=== PATIENT | female | born 1945 | race Two or more races ===

== ENCOUNTER 2023-12-06 09:48 | Outpatient (OUT) | payer OTHER, SELFPAY ==
--- NOTE | 2023-12-06 10:01 | ECG_ITS ---
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
[2023-12-06 11:21] LABS: Basophils Absolute Auto 0.1 10^3/uL (0.0-0.1); Basophils Percent Auto 1.3 % (0.2-2.0); Eosinophils Absolute Auto 0.3 10^3/uL (0.0-0.7); Hematocrit 44.4 % (36.0-48.0); Hemoglobin 14.5 g/dL (12.0-16.0); Immature Granulocytes Abs Auto 0.03 10^3/uL (0.00-0.03); Immature Granulocytes Pct Auto 0.4 % (0.0-0.5); Lymphocytes Absolute Auto 1.2 10^3/uL (1.2-3.8); Lymphocytes Percent Auto 17.1 % (20.5-60.0); Mean Corpuscular HGB Conc 32.7 g/dL (29.9-35.2); Mean Corpuscular Hemoglobin 29.1 pg (26.7-34.0); Mean Platelet Volume 10.6 fL (9.5-13.5); Monocytes Absolute Auto 0.6 10^3/uL (0.3-0.8); Monocytes Percent Auto 9.1 % (1.7-12.0); Neutrophils Absolute Auto 4.8 10^3/uL (1.4-6.5); Neutrophils Percent Auto 68.1 % (43.0-75.0); Platelet Count 250 10^3/uL (150-450); Red Blood Count 4.99 10^6/uL (4.20-5.40); Red Cell Distribution Width 12.9 % (11.0-15.0); White Blood Count 7.1 10^3/uL (4.0-11.0)
[2023-12-06 11:41] LABS: Anion Gap 13.8; BUN Creatinine Ratio 21.4; Calcium 8.8 mg/dL (8.5-10.1); Carbon Dioxide 27.4 mmol/L (21.0-32.0); Chloride 105 mmol/L (98-107); Estimated GFR (African America >60 (>=60); Estimated GFR (Non-African Ame >60 (>=60); Glucose 96 mg/dL (74-106); Potassium 4.2 mmol/L (3.5-5.1); Sodium 142 mmol/L (136-145)
[2023-12-06 12:04] LABS: INR 1.01; Partial Thromboplastin Time 30.6 sec (22.3-36.2); Prothrombin Time 10.7 sec (9.0-11.6)
== END 2023-12-06 09:49 | disposition home or self-care (01) ==
LOC: PST 09:50
PROVIDERS: PCP Family Medicine Adult Medicine; Visit Provider Otolaryngology
DX: Z01.810 Encounter for preprocedural cardiovascular examination (principal); Z01.812 Encounter for preprocedural laboratory examination; K14.8 Other diseases of tongue
CPT/HCPCS: 80048; 85025; 85610; 85730; 93005

== ENCOUNTER 2023-12-17 10:58 | Day surgery (SDC) | payer OTHER, SELFPAY ==
[2023-12-06 11:16] VITALS: BP 142/76; PULSE 86; TEMP 36.3; O2SAT 94; BMI 26.5
[2023-12-17] VITALS (12 sets, daily range): BP systolic 136–162; BP diastolic 68–76; PULSE 75–101; TEMP 36.1–36.6; O2SAT 88–94; BMI 27.7
--- NOTE | 2023-12-17 | OP_ITS ---
OPERATION DATE: 12/17/2023 SURGEON: Digna Hernandez M.D. PREOPERATIVE DIAGNOSIS: Left central tongue lesion. POSTOPERATIVE DIAGNOSIS: Left central tongue lesion. PROCEDURE: Removal of left tongue lesion with layered closure. ANESTHESIA: General endotracheal. COMPLICATIONS: None. 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 PROCEDURE: Patient identified in the holding area and taken back to the OR where she was placed in the supine position. After induction of general endotracheal anesthesia, lidocaine 1% with 1:100,000 epinephrine was infiltrated around the lesion on the left ventral tongue, and after waiting adequate time for hemostasis, the area was prepped with Betadine and then, using a Cabell tip Bovie, an excision with a 1 cm margin around all of the sides of the lesion was mapped out. Then, using the Cabell tip Bovie, incisions were made through the mucosa and dissection carried out into the musculature of the tongue to get a very clear, deep margin. There was no bleeding. The wound was then copiously irrigated and re-prepped with Betadine, and the incision was closed with deep, interrupted 4-0 Vicryl sutures as well as interrupted 4-0 Vicryl vertical mattress sutures. Patient was then awakened and taken to the recovery room in good condition. MAURO
[2023-12-17] MEDS: LACTATED RINGER'S SOLUTION 1,000 ML 50 ML IV (11:26)
[2023-12-17] MEDS: LIDOCAINE HCL 1%-EPINEPHRINE 1:100,000 20 ML MDV INJ (12:13)
[2023-12-17] MEDS: ACETAMINOPHEN 300 MG/ 30 MG CODEINE TABLET 1 TAB PO (13:38)
== END 2023-12-17 14:23 | disposition home or self-care (01) ==
PROVIDERS: PCP Family Medicine Adult Medicine; Visit Provider Otolaryngology
PROC: (CPT 41112; principal; 2023-12-17 12:30)
DX: D00.07 Carcinoma in situ of tongue (principal); Z90.710 Acquired absence of both cervix and uterus; Z90.721 Acquired absence of ovaries, unilateral; Z87.891 Personal history of nicotine dependence; G47.33 Obstructive sleep apnea (adult) (pediatric); J44.9 Chronic obstructive pulmonary disease, unspecified; Z99.81 Dependence on supplemental oxygen; Z85.118 Personal history of other malignant neoplasm of bronchus and lung; R05.3 Chronic cough; E78.5 Hyperlipidemia, unspecified; I10 Essential (primary) hypertension; I35.0 Nonrheumatic aortic (valve) stenosis; I34.1 Nonrheumatic mitral (valve) prolapse; Z86.73 Personal history of transient ischemic attack (TIA), and cerebral infarction without residual deficits; K21.9 Gastro-esophageal reflux disease without esophagitis; E03.9 Hypothyroidism, unspecified; M19.90 Unspecified osteoarthritis, unspecified site; M85.80 Other specified disorders of bone density and structure, unspecified site
CPT/HCPCS: 41112; 36415; 88305; 88341; 88342; J2250; J2371; J2704; J3010

== ENCOUNTER 2024-10-01 08:55 | Outpatient (OUT) | payer MEDICARE, SELFPAY ==
--- NOTE | 2024-10-01 09:01 | XR_ITS ---
[address] [address] Patient Name: ZACHARY HOBBS MRN: [id number] date: 1945 Sex: F Assigned Patient Location: [facility] Current Patient Location: [facility] Accession/Order Number: [id number] Exam Date: 10/01/2024 12:42 Report Date: 10/01/2024 12:42 At the request of: KATHI CASTELLON MD Procedure: XR chest 2V Plain film chest 2 view HISTORY: Preoperative assessment. History COPD COMPARISON: None FINDINGS: SUPPORT DEVICES: None POSTSURGICAL CHANGES: None HEART: Within normal limits PULMONARY TIO: Within normal limits MEDIASTINUM: Unremarkable LUNGS AND PLEURA: No acute lung process, pleural effusion or pneumothorax identified. Hyperinflation. BONY STRUCTURES: Degenerative change ADDITIONAL FINDINGS None XR/XR chest 2V IMPRESSION: No acute process. Impression dictated by: Saad Conroy M.D.10/01/2024 12:42 PM Dictation Location: [facility] Electronically authenticated by: [id number] Y Date: 10/01/2024 12:42
--- NOTE | 2024-10-01 09:01 | ECG_ITS ---
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 Measurements Intervals [place] Rate: 77 P: 57 [place]: 150 QRS: -29 QRSD: 79 T: 36 QT: 368 QTc: 418 Interpretive Statements SINUS RHYTHM INFERIOR MYOCARDIAL INFARCTION [40+ ms Q WAVE AND/OR ST/T ABNORMALITY IN II/aVF], PROBABLY OLD Abnormal ECG Compared to ECG 12/06/2023 11:01:09 No significant changes Electronically Signed On 10-02-2024 19:15:53 EDT by LEVAR DAVIS M.D.
--- OUTSIDE RECORDS SUMMARY | 2024-10-01 09:01 | XMS_ITS | CCD ---
Author Organization [facility] Care Team Providers Care Biological Science Technician Name Role Phone Yan Puckett DO Primary Care Provider DO Anup Mckenna Attending Provider Yan Puckett DO Primary Care Provider Jeff De La Vega DO Primary Care Provider [phone] DO Jeff De La Vega II Primary Care Provider MD Kathi Castellon Jr Attending Provider Kathi Lee Jr Attending Unavailable Kathi Castellon Jr Admitting Unavailable Jeff De La Vega II Primary Care Unavailable Anup Mckenna Attending Unavailable Anup Mckenna Admitting Unavailable YAN PUCKETT Primary Care Unavailable RAVEN FRANCIS Attending Unavailable ANUP CALVILLO Referring Unavailable YAN PUCKETT Primary Care Unavailable SELF Referring Unavailable SAMANTHA ARMSTRONG Attending Unavailable YAN PUCKETT Primary Care Unavailable TAMI GUTIERREZ Referring Unavailable YAN PUCKETT Primary Care Unavailable Yan Puckett DO Primary Care Provider Irma Martell Attending Unavailable Mobebali Mohamad ARenard Referring Unavailable Momahsa Mohamad ARenard Admitting Unavailable [place], Bashar X Admitting Unavailable [place], Bashar X Attending Unavailable [place], Bashar X Referring Unavailable JORDON ROBBINS Attending Unav ailable DO Jeff De La Vega Attending Unavailable DO Jeff De La Vega Attending Unavailable BEATRIZ LANE Attending Unavailable [place], Bashar X Attending Unavailable [place], Bashar X Referring Unavailable NONE, XXXX Referring Unavailable Ac Brown Admitting Unavaila Ac Pra[place]. Attending Unavaila ble [place], Bashar X Admitting Unavailable [place], Bashar X Attending Unavailable [place], Bashar X Referring Unavailable [place], Bashar X Attending Unavailable [place], Bashar X Referring Unavailable [place], Bashar X Admitting Unavailable [place], DO Jeff J Attending Unavailable [place], DO Jeff J Admitting Unavailable NONE, XXXX Referring Unavailable [place], Bashar X Attending Unavailable Irma Martell. Attending Unavailable [place], DO Bautista J Attending Unavailable [place], DO Bautista J Attending Unavailable [place], DO Bautista J Attending Unavailable BEATRIZ LANE Attending Unavailable [place], DO Jeff Kirkpatrick Attending Unavailable GerardoeyJeff Referring Unavailable Tiburciomley, Jeff Kirkpatrick Attending Unavailable Tiburciomley, Jeff J Admitting Unavailable [place], Jeff Kirkpatrick Attending Unavailable [place], Jeff J Admitting Unavailable [place], Jeff Kirkpatrick Attending Unavailable [place], Jeff Kirkpatrick Attending Unavailable CromleyJeff Attending Unavailable NONE, XXXX Referring Unavailable [place], Bashar X Attending Unavailable [place], Bashar X Referring Unavailable [place], Bashar X Attending Unavailable [place]ley, DO Bautista J Referring Unavailable Cromley, DO Jeff Kirkpatrick Admitting Unavailable [place]ley, DO Jeff Kirkpatrick Attending Unavailable [place]ley, DO Jeff Kirkpatrick Attending Unavailable [place], DO Bautista J Admitting Unavailable Cromley, DO Bautista J Admitting Unavailable Cromley, DO Bautista J Attending Unavailable [place], DO Jeff Kirkpatrick Attending Unavailable Cromley, DO Jeff Kirkpatrick Admitting Unavailable Cromley, DO Jeff Kirkpatrick Attending Unavailable [place]ley, DO Jeff Kirkpatrick Attending Unavailable [place], DO Jeff Kirkpatrick Attending Unavailable [place], Jeff J Admitting Unavailable Magdalena Cruz Attending Unavailable KATHI CASTELLON Attending Unavailable RAMANA MILLER Attending Unavailable DOLRAMANA MAHONEY Attending Unavailable MILAD COATES Attending Unavailable RAMANA MILLER Attending Unavailable KATHI CASTELLON Attending Unavailable GERARDOEYJEFF Referring Unavailable COURTNEY TAPIA Attending Unavailable JEFF DE LA VEGA Referring Unavailable KATHI CASTELLON Attending Unavailable KATHI CASTELLON Attending Unavailable RAMANA MILLER Attending Unavailable KATHI CASTELLON Attending Unavailable TIMKATHI SALAZAR Attending Unavailable KATHI CASTELLON Attending Unavailable RAMNAA MILLER Attending Unavailable Allergies Allergy Classification Reported Allergen(s) Allergy Type Date of Onset Reaction(s) Facility (11 sources) Acetaminophen / Codeine Drug Allergy 4 Rash [facility] (11 sources) Octacosanol Propensity to adverse reactions 4 [facility] (4 sources) Codeine; Translations: [codeine] Drug Allergy [facility] Repository Medications Current Medications Medication Drug Class(es) Dates Sig (Normalized) Sig (Original) albuterol 0.83 mg/ml inhalation solution (20 sources) beta2-Adrenergic Agonist Start: 09-20-2023 albuterol (2.5 MG/3ML) 0.083% nebulizer solution Take 2.5 mg by nebulization every 6 (six) hours if needed 09/20/2023 Active Start: 10-19-2020 take 3 mL by inhalat ion every six hours as needed albuterol (PROVENTIL) 2.5 mg /3 mL (0.083 %) nebulizer solution Use 3 mL via nebulizer every 6 hours as needed. 10/19/2020 Active take 2 puff(s) by in halation every four hours for wheezing albuterol HFA 90 mcg/act inhaler Inhale 2 puffs every 4 (four) hours if needed for wheezing. Active ALBUTEROL SULFAT E (PROAIR HFA INHALATION) Inhale 2 Puffs as instructed as needed. Active ALBUTEROL SULFAT E (PROAIR HFA INHALATION) Inhale 2 Puffs as instructed as needed. 0 Active Comment on above: Inhale 2 Puffs as in structed as needed. Use 3 mL via nebuliz er every 6 hours as needed. aspirin 81 mg delayed release oral tablet (20 sources) Platelet Aggregation Inhibitor, Nonsteroidal Anti-inflammatory Drug take 1 tablet by mouth in the morning aspirin 81 MG EC tablet Take 81 mg by mouth in the morning. Active take 1 tablet by mouth once miriam y aspirin 325 mg tablet Take 325 mg by mouth once daily. 0 Active Comment on above: Take 325 mg by mouth once daily. Take 81 mg by mouth once daily. 24 hr buPROPion hydrochloride 150 mg extended release oral tablet (4 sources) Aminoketone Start : 07-07 take 1 tablet by mouth once daily buPROPion XL (Wellbutrin XL) 150 MG 24 hr tablet Take 150 mg by mouth Daily 07/07/2024 Active calcium carbonate 1500 mg oral tablet (11 sources) calcium carbonat e 1500 (600 Ca) MG tablet 1 tablet Daily Active calcium citrate 1500 mg / cholecalciferol 250 unt oral tablet (8 sources) Vitamin D Start : 08-11 take 1 tablet by mouth once daily Calcium Citrate-Vitamin D3 (CITRACAL+D) 315 mg- 250 unit tab Take 1 tablet by mouth once daily. 08/11/2018 Active Comment on above: Take 1 tablet by deep th once daily. Carboxymethylcellulose (8 sources) CARBOXYMETHYLCEL LULOSE SODIUM (REFRESH OPHTHALMIC) Use in eyes. Active CARBOXYMETHYLCEL LULOSE SODIUM (REFRESH OPHTHALMIC) Use in eyes. 0 Active Comment on above: Use in eyes. cholecalciferol, vitamin D3, (VITAMIN D3 ORAL) (7 sources) take 50 ug by mouth once daily cholecalciferol, vitamin D3, (VITAMIN D3 ORAL) Take 50 mcg by mouth once daily. Active take 50 ug by mouth once daily c holecalciferol, vitamin D3, (VITAMIN D3 ORAL) Take 50 mcg by mouth once daily. 0 Active Comment on above: Take 50 mcg by mouth once daily. cyclobenzaprine hydrochloride 10 mg oral tablet (17 sources) Muscle Relaxant Start: 12-03-19 21 take 1 tablet by mouth every eight hours as needed cyclobenzaprine (FLEXERIL) 10 mg tablet Take 1 tablet by mouth three times daily as needed. 60 tablet 2 12/02/2020 Active End: 05-18-2024 take 5 mg by mouth three times daily as needed for muscle spasms cyclobenzaprine (Flexeril) 10 MG tablet Take 5 mg by mouth 3 (three) times a day as needed for muscle spasms. 05/18/2024 Discontinued (Therapy completed) Comment on above: Take 1 tablet by deep three times daily as needed. cycloSPORINE 0.5 mg/ml ophthalmic suspension (17 sources) Calcineurin Inhibitor Immunosuppressant End: 05-18-20 24 take 1 drop(s) into the eye(s) every twelve hours cycloSPORINE (Restasis) 0.05 % ophthalmic emulsion Administer 1 drop into both eyes every 12 (twelve) hours 05/18/2024 Discontinued (Therapy completed) CYCLOSPORINE (RE STASIS OPHTHALMIC) Use in eyes. Active take 1 drop(s) into the eye(s) in the morning cycloSPORINE (Restasis MultiDose) 0.05 % ophthalmic emulsion 1 drop in the morning and 1 drop before bedtime. 0 Active CYCLOSPORINE (RE STASIS OPHTHALMIC) Use in eyes. 0 Active Comment on above: Use in eyes. fluticasone propionate 0.05 mg/actuat metered dose nasal spray (8 sources) Corticosteroid Start: 10-14-19 take 1 spray(s) nasal route once daily fluticasone (FLONASE) 50 mcg/actuation nasal spray Use 1 [place] in each nostril once daily. 10/13/2020 Active Comment on above: Use 1 [place] in each nostril once daily. gabapentin 100 mg oral capsule (18 sources) Anti-epileptic Agent Start: 05-27-20 End: 08-25-19 24 take 1 capsule by mouth in the morning, then take 1 capsule by mouth in the evening, then take 1 capsule by mouth at bedtime gabapentin (Neurontin) 100 MG capsule Take 100 mg by mouth in the morning and 100 mg in the evening and 100 mg before bedtime. 05/27/2023 Active Start: 12-20-2021 End: 05-27-2023 take 1 capsule by mouth three times daily gabapentin (NEURONTIN) 100 mg capsule Take 1 capsule by mouth three times daily for 180 days. 90 capsule 5 12/20/2021 05/27/2023 Discontinued Comment on above: Take 1 capsule by [facility] three times daily for 180 days. Take 1 capsule by [facility] two times a day for 90 days. levothyroxine sodium 0.05 mg oral tablet (15 sources) l-Thyroxine levothyroxine (Synthroid, Levoxyl) 50 MCG tablet Take by mouth Daily before meals. Active Comment on above: Take 50 mcg by mouth once daily. melatonin 10 mg oral tablet (19 sources) take 1 tablet by mouth every twenty-four hours as needed melatonin 10 MG tablet Take 10 mg by mouth Daily as needed Active take 1 tablet by deep every twenty-four hours as needed Melatonin 5 mg tab Take 5 mg by mouth at bedtime as needed. 0 Active Comment on above: Take 5 mg by mouth a t bedtime as needed. Take 10 mg by mouth at bedtime as needed. meloxicam 15 mg oral tablet (14 sources) Nonsteroidal Anti-inflammatory Drug meloxicam (Mobic) 15 MG tablet Take by mouth. Active montelukast 10 mg oral tablet (15 sources) Leukotriene Receptor Antagonist Start: 12-28-19 23 take 1 tablet by mouth once daily at bedtime montelukast (SINGULAIR) 10 mg tablet Take 10 mg by mouth daily at bedtime. 12/27/2022 Active Comment on above: Take 10 mg by mouth daily at bedtime. Multiple Vitamin (multivitamin) capsule (11 sources) take 1 capsule by mouth once daily Multiple Vitamin (multivitamin) capsule Take 1 capsule by mouth Daily Active MULTIVITAMIN ORAL (7 sources) MULTIVITAMIN ORA L Take by mouth once daily. Active MULTIVITAMIN ORA L Take by mouth once daily. 0 Active Comment on above: Take by mouth once d aily. omeprazole 20 mg delayed release oral tablet (14 sources) Proton Pump Inhibitor take 1 tablet by mouth before mealtime omeprazole OTC (PriLOSEC OTC) 20 MG EC tablet Take 20 mg by mouth in the morning. Take before meals. Do not crush, chew, or split. . Active omeprazole 20 mg / sodium bicarbonate 1100 mg oral capsule (8 sources) Proton Pump Inhibitor Start: 9 take 1 capsule by mouth in the morning Omeprazole-Sodium Bicarbonate 20-1.1 mg-gram cap Take 1 capsule by mouth. In the morning 08/11/2018 Active Comment on above: Take 1 capsule by mo [facility]. In the morning pravastatin sodium 80 mg oral tablet (20 sources) HMG-CoA Reductase Inhibitor take 1 tablet by mouth in the morning pravastatin (Pravachol) 80 MG tablet Take 80 mg by mouth in the morning. Active Comment on above: Take 80 mg by mouth once daily. verapamil hydrochloride 40 mg oral tablet (18 sources) Calcium Channel Jacqui take 1 tablet by mouth in the morning verapamil (Calan) 40 MG tablet Take 40 mg by mouth in the morning and 40 mg before bedtime. Active take 1 tablet by deep th once daily at bedtime verapamil SR (CALAN SR, ISOPTIN SR) 120 mg CR tablet Take 120 mg by mouth daily at bedtime. Active Comment on above: Take 120 mg by mouth daily at bedtime. Zinc (18 sources) take 1 tablet by mouth once daily Zinc 50 mg tab Take 50 mg by mouth once daily. [facility] tablet Take 50 mg by mouth in the morning. Active take 1 tablet by mouth once miriam y Zinc 50 mg tab Take 50 mg by mouth once daily. 0 Active Comment on above: Take 50 mg by mouth once daily. Completed/Discontinued Medications Medication Drug Class(es) Dates Sig (Normalized) Sig (Original) alendronic acid 70 mg oral tablet (11 sources) Bisphosphonate End: 05-27-2023 take 1 tablet by mouth every week alendronate (FOSAMAX) 70 mg tablet Take 70 mg by mouth once each week. 05/27/2023 Discontinued take 1 tablet by mouth in the mo rning alendronate (Fosamax) 70 MG tablet Take 70 mg by mouth every 7 (seven) days. Take in the morning with a full glass of water, on an empty stomach, and do not take anything else by mouth or lie down for the next 30 min. 0 Active Comment on above: Take 70 mg by mouth once each week. atenolol 50 mg oral tablet (11 sources) beta-Adrenergic Jacqui End: 3 take 1 tablet by mouth once daily atenolol (TENORMIN) 50 mg tablet Take 50 mg by mouth once daily. 05/27/2023 Discontinued Comment on above: Take 50 mg by mouth once daily. budesonide 0.25 mg/ml inhalation suspension (8 sources) Corticosteroid Start: 9 End: 3 budesonide (PULMICORT) 0.5 mg/2 mL nebulizer solution USE 1 VIAL IN NEBULIZER TWICE DAILY 11 05/02/2019 05/27/2023 Discontinued Comment on above: USE 1 VIAL IN NEBULI ZER TWICE DAILY doxazosin 1 mg oral tablet (8 sources) alpha-Adrenergic Jacqui Start: 3 take 0.5 tablet by mouth twice daily doxazosin (CARDURA) 1 mg tablet Take 0.5 tablets by mouth two times a day. 0 05/27/2023 Active End: 05-27-2023 take 1 tablet by mouth once daily at bedtime doxazosin (CARDURA) 1 mg tablet Take 1 mg by mouth daily at bedtime. 05/27/2023 Discontinued Comment on above: Take 1 mg by mouth d aily at bedtime. Take 0.5 tablets by mouth two times a day. 30 actuat fluticasone furoate 0.1 mg/actuat / umeclidinium 0.0625 mg/actuat / vilanterol 0.025 mg/actuat dry powder inhaler (12 sources) Anticholinergic, Corticosteroid, beta2-Adrenergic Agonist Start: 3 take 1 puff(s) by inhalation once daily TRELEGY ELLIPTA 100-62.5-25 mcg inhalation powder Inhale 1 Puff as instructed once daily. 0 05/07/2023 Active Trelegy Ellipta 100-62.5-25 MCG/ACT aerosol powder Take 62.5 Inhalations by mouth Daily Active Comment on above: Inhale 1 Puff as ins tructed once daily. fluticasone-sod chl-sod bicarb 50 mcg- 0.9 % ksps (8 sources) End: 05-27-2023 fluticasone-sod chl-sod bicarb 50 mcg- 0.9 % ksps Use in the nose. 05/27/2023 Discontinued End: 05-27-2023 fluticasone-sod chl-sod bica rb 50 mcg- 0.9 % ksps Use in the nose. 0 05/27/2023 Discontinued fluticasone-sod chl-sod bicarb 50 mcg- 0.9 % ksps Use in the nose. 0 Active Comment on above: Use in the nose. LORazepam 0.5 mg oral tablet (12 sources) Benzodiazepine Start: 3 take 0.5 mg by mouth once daily at bedtime LORazepam (ATIVAN) 0.5 mg Take 0.5 mg by mouth daily at bedtime. 0 05/20/2023 Active Comment on above: Take 0.5 mg by mouth daily at bedtime. lysine 1000 mg oral tablet (8 sources) End: 3 take 1 tablet by mouth once daily Lysine 1,000 mg tab Take 1 tablet by mouth once daily. 05/27/2023 Discontinued Comment on above: Take 1 tablet by deep th once daily. Magnesium (8 sources) End: 3 take 1 tablet by mouth once daily Magnesium 250 mg tab Take 250 mg by mouth once daily. 05/27/2023 Discontinued End: 05-27-2023 take 1 tablet by mouth once daily Magnesium 250 mg tab Take 250 mg by mouth once daily. 0 05/27/2023 Discontinued take 1 tablet by deep th once daily Magnesium 250 mg tab Take 250 mg by mouth once daily. 0 Active Comment on above: Take 250 mg by mouth once daily. magnesium oxide 400 mg oral tablet (1 source) Start: 3 take 1 tablet by mouth once daily magnesium oxide 400 mg magnesium tab Take 1 tablet by mouth once daily. 0 04/27/2023 Active Comment on above: Take 1 tablet by deep once daily. 24 hr mirabegron 25 mg extended release oral tablet (8 sources) beta3-Adrenergic Agonist Start: 1 End: 3 take 25 mg by mouth once daily MYRBETRIQ 25 mg Tb24 Take 25 mg by mouth once daily. 10/13/2020 05/27/2023 Discontinued Comment on above: Take 25 mg by mouth once daily. 10 actuat olodaterol 0.0025 mg/actuat / tiotropium 0.0025 mg/actuat inhalation spray (8 sources) Anticholinergic, beta2-Adrenergic Agonist Start: 0 End: 3 STIOLTO RESPIMAT 2.5-2.5 mcg/actuation Inhale 2 Puffs as instructed once daily. 05/04/2020 05/27/2023 Discontinued Comment on above: Inhale 2 Puffs as in structed once daily. Simethicone (8 sources) End: 3 take 1 capsule by mouth four times daily as needed simethicone (GAS-X ORAL) Take 1 capsule by mouth four times daily as needed. 05/27/2023 Discontinued End: 05-27-2023 take 1 capsule by mouth four times daily as needed simethicone (GAS-X ORAL) Take 1 capsule by mouth four times daily as needed. 0 05/27/2023 Discontinued take 1 capsule by mo ut four times daily as needed simethicone (GAS-X ORAL) Take 1 capsule by mouth four times daily as needed. 0 Active Comment on above: Take 1 capsule by mo uth four times daily as needed. 30 actuat umeclidinium 0.0625 mg/actuat / vilanterol 0.025 mg/actuat dry powder inhaler (8 sources) Anticholinergic, beta2-Adrenergic Agonist Start: 08-11-2018 End: 05-27-2023 umeclidinium-vilanterol (ANORO ELLIPTA) 62.5-25 mcg/actuation inhaler 08/11/2018 05/27/2023 Discontinued Problems Active Problems Problem Classification Problem Date Documented Date Episodic/Chronic Aortic; peripheral; and visceral artery aneurysms (5 sources) Aneurysm of left carotid artery; Translations: [Aneurysm of carotid artery] Onset: 01-02-2023 Chronic Asthma (11 sources) Asthma; Translations: [Unspecified asthma, uncomplicated] Onset: 11-25-2023 11-25-2023 Chronic Cancer of bronchus; lung (20 sources) 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; Translations: [Malignant neoplasm of upper lobe, left bronchus or lung] Onset: 11-19-2016 11-19-2016 Chronic Chronic obstructive pulmonary disease and bronchiectasis (20 sources) Centriacinar emphysema; Translations: [Centrilobular emphysema] Onset: 11-25-2023 11-25-2023 Chronic Disorders of lipid metabolism (11 sources) Hyperlipidemia; Translations: [Hyperlipidemia, unspecified] Onset: 11-25-2023 11-25-2023 Chronic Esophageal disorders (11 sources) Gastroesophageal reflux disease; Translations: [Gastro-esophageal reflux disease without esophagitis] Onset: 11-25-2023 11-25-2023 Chronic Essential hypertension (11 sources) Hypertensive disorder; Translations: [Essential (primary) hypertension] Onset: 11-25-2023 11-25-2023 Chronic Genitourinary symptoms and ill-defined conditions (11 sources) Genuine stress incontinence; Translations: [Stress incontinence (female) (male)] Onset: 11-25-2023 11-25-2023 Chronic Heart valve disorders (11 sources) Aortic valve sclerosis; Translations: [Other nonrheumatic aortic valve disorders] Onset: 11-25-2023 11-25-2023 Chronic Mycoses (1 source) Onychomycosis; Translations: [Tinea unguium] 07-27-2024 Episodic Osteoarthritis (11 sources) Arthritis of knee; Translations: [Unilateral primary osteoarthritis, unspecified knee] Onset: 11-25-2023 11-25-2023 Chronic Other and ill-defined cerebrovascular disease (19 sources) Intracranial aneurysm; Translations: [Cerebral aneurysm, nonruptured] Onset: 11-07-2018 11-07-2018 Chronic Other connective tissue disease (1 source) Pain of toe of right foot; Translations: [Pain in right toe(s)] 07-27-2024 Episodic Other connective tissue disease (1 source) Pain of toe of left foot; Translations: [Pain in left toe(s)] 07-27-2024 Episodic Other ear and sense organ disorders (11 sources) Otitis externa; Translations: [Unspecified otitis externa, unspecified ear] Onset: 11-25-2023 11-25-2023 Chronic Other nervous system disorders (11 sources) Peripheral nerve disease ; Translations: [Unspecified mononeuropathy of unspecified upper limb] Onset: 11-25-2023 11-25-2023 Chronic Other skin disorders (2 sources) Seborrheic keratosis; Translations: [Other seborrheic keratosis] 08-08-2023 Episodic Residual codes; unclassified (11 sources) Hypoxia; Translations: [Idiopathic sleep related nonobstructive alveolar hypoventilation] Onset: 11-25-2023 11-25-2023 Chronic Spondylosis; intervertebral disc disorders; other back problems (11 sources) Cervical arthritis; Translations: [Spondylosis without myelopathy or radiculopathy, cervical region] Onset: 11-25-2023 11-25-2023 Chronic Transient cerebral ischemia (11 sources) Transient cerebral ischemia; Translations: [Transient cerebral ischemic attack, unspecified] Onset: 11-25-2023 11-25-2023 Chronic Unclassified (1 source) Pain in left hand; Translations: [Pain in left hand] Onset: 04-30-2023 Past or Other Problems Problem Classification Problem Date Documented Da te Episodic/Chronic Allergic reactions (11 sources) Allergy to pollen; Translations: [Other allergy status, other than to drugs and biological substances] Onset: 11-25-2023 11-25-2023 Episodic Cardiac dysrhythmias (20 sources) Bradycardia; Translations: [Bradycardia, unspecified] Onset: 11-25-2023 11-25-2023 Episodic Diseases of mouth; excluding dental (20 sources) Sialoadenitis; Translations: [Sialoadenitis, unspecified] Onset: 11-25-2023 11-25-2023 Episodic Genitourinary symptoms and ill-defined conditions (20 sources) Incomplete emptying of bladder; Translations: [Retention of urine, unspecified] Onset: 11-25-2023 11-25-2023 Episodic Malaise and fatigue (11 sources) Fatigue; Translations: [Other fatigue] Onset: 11-25-2023 11-25-2023 Episodic Other bone disease and musculoskeletal deformities (11 sources) Osteopenia; Translations: [Other specified disorders of bone density and structure, unspecified site] Onset: 11-25-2023 11-25-2023 Episodic Other bone disease and musculoskeletal deformities (11 sources) Cervical somatic dysfunction; Translations: [Segmental and somatic dysfunction of cervical region] Onset: 11-25-2023 11-25-2023 Episodic Other bone disease and musculoskeletal deformities (11 sources) Somatic dysfunction of head region; Translations: [Segmental and somatic dysfunction of head region] Onset: 11-25-2023 11-25-2023 Episodic Other bone disease and musculoskeletal deformities (11 sources) Somatic dysfunction of lower limb; Translations: [Segmental and somatic dysfunction of lower extremity] Onset: 11-25-2023 11-25-2023 Episodic Other bone disease and musculoskeletal deformities (11 sources) Somatic dysfunction of sacral spine; Translations: [Segmental and somatic dysfunction of sacral region] Onset: 11-25-2023 11-25-2023 Episodic Other bone disease and musculoskeletal deformities (11 sources) Somatic dysfunction of thoracic region; Translations: [Segmental and somatic dysfunction of thoracic region] Onset: 11-25-2023 11-25-2023 Episodic Other bone disease and musculoskeletal deformities (11 sources) Somatic dysfunction of upper limb; Translations: [Segmental and somatic dysfunction of upper extremity] Onset: 11-25-2023 11-25-2023 Episodic Other connective tissue disease (11 sources) Poor posture; Translations: [Abnormal posture] Onset: 11-25-2023 11-25-2023 Episodic Other connective tissue disease (11 sources) Muscle spasm of cervical muscle of neck; Translations: [Other muscle spasm] Onset: 11-25-2023 11-25-2023 Episodic Other diseases of bladder and urethra (11 sources) Urethral stricture; Translations: [Unspecified urethral stricture, male, unspecified site] Onset: 11-25-2023 11-25-2023 Episodic Other ear and sense organ disorders (11 sources) Pain of ear structure; Translations: [Otalgia, unspecified ear] Onset: 11-25-2023 11-25-2023 Episodic Other lower respiratory disease (11 sources) Cough; Translations: [Cough] Onset: 11-25-2023 11-25-2023 Episodic Other lower respiratory disease (11 sources) Rib pain; Translations: [Pleurodynia] Onset: 11-25-2023 11-25-2023 Episodic Other non-traumatic joint disorders (11 sources) Pain in unspecified knee; Translations: [Pain in joint, lower leg] Onset: 11-25-2023 11-25-2023 Episodic Other screening for suspected conditions (not mental disorders or infectious disease) (11 sources) Raised TSH level; Translations: [Other specified abnormal findings of blood chemistry] Onset: 11-25-2023 11-25-2023 Episodic Otitis media and related conditions (11 sources) Dysfunction of eustachian tube; Translations: [Unspecified Eustachian tube disorder, unspecified ear] Onset: 11-25-2023 11-25-2023 Episodic Residual codes; unclassified (11 sources) Insomnia; Translations: [Insomnia, unspecified] Onset: 11-25-2023 11-25-2023 Episodic Screening and history of mental health and substance abuse codes (11 sources) Ex-smoker; Translations: [Personal history of nicotine dependence] Onset: 11-25-2023 11-25-2023 Episodic Spondylosis; intervertebral disc disorders; other back problems (20 sources) Chronic low back pain; Translations: [Lumbago with sciatica, left side] Onset: 11-25-2023 11-25-2023 Episodic Sprains and strains (11 sources) Complete tear of ligament of finger; Translations: [Unspecified sprain of unspecified finger, initial encounter] Onset: 11-25-2023 11-25-2023 Episodic Thyroid disorders (11 sources) Disorder of thyroid gland; Translations: [Disorder of thyroid, unspecified] Onset: 11-25-2023 11-25-2023 Episodic Viral infection (11 sources) Disease caused by 2019-nCoV; Translations: [COVID-19] Onset: 11-25-2023 11-25-2023 Episodic Results Test Name Value Interpretation Reference Range Facil ity Ambulatory Visit Summaryon 0 09-08-2024 Ambulatory Visit Summary Ambulatory Visit Summary ZACHARY HOBBS :1945 Visit Date:09/08/2024 Ambulatory Visit Instructions Your Diagnosis Acute bacterial conjunctivitis of both eyes Viral URI with cough Your Care Team Attending Physician - Karoline Ortiz Primary Care Physician - Jeff De La Vega DO This Is Your Medications List brompheniramine/dext romethorphan/PSE (Bromfed DM oral syrup) polymyxin B-trimethoprim ophthalmic (polymyxin B-trimethoprim Opth Bing) Contact prescribing physician if questions or concerns Non-Formulary Medication (Drerick probiotic and probiotic gummies) Oxygen (Oxygen - for Home) albuterol (Albuterol (Eqv-ProAir HFA) 90 mcg/inh inhalation aerosol) albuterol (albuterol 0.083% Inh Bing 3 mL) aspirin buPROPion (buPROPion 300 mg/24 hours ER Tab) calcium-vitamin D (Calcium 600+D) fluticasone/umeclidi nium/vilanterol (Trelegy Ellipta 100 mcg-62.5 mcg-25 mcg inhalation powder) gabapentin (gabapentin 100 mg Cap) levothyroxine (levothyroxine 50 mcg (0.05 mg) Tab) lorazepam (LORazepam 0.5 mg Tab) melatonin (melatonin 10 mg oral tablet) montelukast (montelukast 10 mg Tab) multivitamin with minerals (Multivitamin, Therapeutic w/ Minerals) ocular lubricant (Refresh Optive) omeprazole (omeprazole 20 mg Cap-DR) pravastatin (pravastatin 80 mg Tab) verapamil (verapamil 40 mg oral tablet) zinc sulfate (Zinc) Procedures Performed Colonoscopy (03/27/2024), Tongue (12/17/2023), Cystourethroscopy with dilation of urethral stricture (12/20/2019), Colonoscopy (08/26/2015), Cataract, Colonoscopy, gamma knife radiation to L lung, hysterectomy, Lung biopsy sample, Oophorectomy, Tonsillectomy and adenoidectomy. Discharge Vitals Temperature (Temporal Artery) 36.7 ???C Heart Rate (Peripheral) 93 Blood Pressure 116/72 Height 157 cm Height 62 in Weight 63 kg Weight 138.891 lb BMI 25.56 What to do next Scheduled Follow-Up Appointments 2024 2:00 PM EDT With: Jeff De La Vega DO Where: [facility] [address] [place] [address]- 2024 2:30 PM EST With: Where: [facility] [address] [place] [address]- You Need to Schedule the Following Appointments Follow Up with Jeff De La Vega DO, FAM, PED When: Where: [address] [place] [address] Medications What How Much When Why Instructions New brompheniramine/ dextromethorphan/ PSE (Bromfed DM oral syrup) 10 Milliliter By Mouth 4 times a day as needed for Cough and Congestion Acute bacterial conjunctivitis of both eyes Viral URI with cough Duration: 5 Days Pickup at [facility] New polymyxin B-trimethoprim ophthalmic (polymyxin B-trimethoprim Opth Bing) 1 Drops Ophthalmic Every 3 hours Acute bacterial conjunctivitis of both eyes Viral URI with cough Duration: 7 Days not to exceed 6 doses/ day use in BOTH eyes Pickup at [facility] 1985 Unchanged albuterol (Albuterol (Eqv-ProAir HFA) 90 mcg/ inh inhalation aerosol) 2 Puffs Inhalation Every 6 hours COPD mixed type Contact prescribing physician if questions or concerns Unchanged albuterol (albuterol 0.083% Inh Bing 3 mL) 3 Milliliter Inhalation Every 6 hours as needed for as needed for wheezing Q6H and PRN Contact prescribing physician if questions or concerns Unchanged aspirin 81 Milligram By Mouth Every day Contact prescribing physician if questions or concerns Unchanged buPROPion (buPROPion 300 mg/ 24 hours ER Tab) 1 Tablets By Mouth Every 24 hours Mild recurrent major depression Contact prescribing physician if questions or concerns Unchanged calcium-vitamin D (Calcium 600+D) 1 tab By Mouth Every day Contact prescribing physician if questions or concerns Unchanged fluticasone/ umeclidinium/ vilanterol (Trelegy Ellipta 100 mcg-62.5 mcg-25 mcg inhalation powder) 1 Puffs Inhalation Every day Contact prescribing physician if questions or concerns Unchanged gabapentin (gabapentin 100 mg Cap) 1 Capsules By Mouth 3 times a day Contact prescribing physician if questions or concerns Unchanged levothyroxine (levothyroxine 50 mcg (0.05 mg) Tab) 1 Tablets By Mouth Every day Hypothyroidism Contact prescribing physician if questions or concerns Unchanged lorazepam (LORazepam 0.5 mg Tab) 1 Tablets By Mouth Once a day (at bedtime) Insomnia 90 day rx Contact prescribing physician if questions or concerns Unchanged melatonin (melatonin 10 mg oral tablet) By Mouth Once a day (at bedtime) Contact prescribing physician if questions or concerns Unchanged montelukast (montelukast 10 mg Tab) 1 Tablets By Mouth Every day Asthma Contact prescribing physician if questions or concerns Unchanged multivitamin with minerals (Multivitamin, Therapeutic w/ Minerals) 1 Tablets By Mouth Every day Contact prescribing physician if questions or concerns Unchanged Non-Formulary Medication (Derrick probiotic and probiotic g (more content not included)... Normal [facility] Family Medicine Office/Clini c Noteon 09-08-2024 Family Medicine Office/Clinic Note Family Medicine Office/Clinic Note Chief Complaint chronic cough and Lt eye oozing HPI Staff 79 yo female presents with cough since 2023. congestion, shortness of breath. hx emphysema. pt also c/o Lt eye crusts shut. states when removing the crusts it oozes clear liquid, skin around eye sanches when clear liquid oozes. states eye has been itching as well. redness noted to skin around eye. states started about 3-4 days ago, and worsens in the mornings and at night. otc muscinex dm, refresh eye drops History of Present Illness I have reviewed and verified the staff HPI to be accurate for this encounter. Portions of this record have been created with voice recognition software. Occasional wrong-word or ???[id number]??? substitutions may have occurred due to the inherent limitations of voice recognition software. 9-year-old female with complaints of cough and congestion off and on since June however this is improving. Patient reports history of emphysema but no longer smoking. She denies coughing up any sputum. She denies any fever or chills currently although when she first had her symptoms she did have a low-grade temperature. She is also complaining of redness, itchiness and drainage from her eyes bilaterally worse on the left. Patient states that the crusting of her eyes started about 3 to 4 days ago and is worse in the mornings and at night. She has been using a moistened cotton ball to clean the drainage from her eyes. Does report her left eye being crusted shut this morning. She denies any ear pain but does report nasal congestion and did have a scratchy throat this morning that improved with Tylenol. She does not have any chest pain, wheezing or shortness of breath. He denies any nausea vomiting or diarrhea. States she took a COVID test back when she for started having symptoms where she had a low-grade fever and that was negative. Denies history of hypertension. Review of Systems PHQ Score Initial Depression Screen Score: 0 SCORE ROS negative unless otherwise stated in HPI. Physical Exam Vitals & Measurements T: 36.7 ???C(Temporal Artery) HR: 93(Peripheral) BP: 116/72 SpO2: 94% HT: 62 in HT: 157 cm WT: 63 kg WT: 138.891 lb BMI: 25.56 General: Well developed, well nourished, in no acute distress mildly ill-appearing Eyes: Pupils equal, round, and reactive to light. mild Conjunctivae and scleral injection bilaterally more noted on left eye, extraocular movements intact vision normal, scant yellowish crusting in eyelashes on left side Ears: No deformity or lesion of external ear. Canal mildly erythematous bilaterally with clear fluid behind TMs bilaterally. TM???s intact, not inflamed, no bulging or drainage. Hearing grossly normal to conversational speech Nose: mild nasal mucosa inflammation and edema Mouth: Mucous membranes moist. Normal oropharynx, erythematous posterior pharynx without lesions or exudates. Tongue normal uvula midline, no drooling Neck: no adenopathy Lungs: clear to auscultation throughout, no wheezing, no rales. No respiratory distress occasional moist cough RR 16 Cardio: regular rate and rhythm, no murmur Abdomen: Soft, non-distended, non-tender Musculoskeletal: not assessed Extremity: not assessed Neurologic: not assessed Skin: No rashes, ulcerations, or suspicious lesions Mental Status: Alert and oriented x3. Normal mood and affect Assessment/Plan Due to crusting and manipulation of eyelids with a Q-tip for cleansing we will go ahead and treat her with Polytrim ophthalmic eyedrops bilaterally for her eyes. For nasal congestion and cough we will have her use Bromfed-DM. Likely viral illness causing her symptoms. Cough is much improved per her report. Denies wheezing or shortness of breath. Up with primary care if symptoms are not improving over the next 5 to 7 days. Warm compresses to help remove drainage cool compresses for itching. Discussed contagious nature of conjunctivitis. 1. Acute bacterial conjunctivitis of both eyes (H10.33: Unspecified acute conjunctivitis, bilateral) Exam consistent with bacterial conjunctivitis. Will treat with polymyxin B/Trimethoprim 1 drop every 3 hrs while awake x 7 days. Finish course. Discussed contagious nature, avoid touching eyes. Do not replace contact lens until completely resolved, discard current pair to avoid recontamination. May use warm washcloth to remove drainage or crusting. Advised less contagious after 24 hours of antibiotic drops. Follow up with PCP or eye doctor if not improving over next 3 days. Patient/parent verbalized understanding of treatment plan. Ordered: brompheniramine/dext romethorphan/PSE, 10 mL, Oral, QID Cough and Congestion for 5 day(s), 200 mL, Refill(s) 0, [facility], 157, cm, 09/08/24 13:05:00 EST, Height/Length Dosing, 63, kg, 09/08/24 13:05:00 EST, Weight Dosing polymyxin B-trimethoprim ophthalmic, 1 drop(s), OPTH, q3hr for 7 day(s), 10 mL, Refill(s) 0, not to exceed 6 doses/day use in BOTH eyes, (more content not included)... Normal [facility] Comment on above: Result Comment: Elec tronically Signed By: Karoline Ortiz\.br\Date and Time Signed: 09/08/24 13:50 EST Ionized Calciumon 09-04-2024 Calcium.ionized ISE [Mass/Vol] 5.0 mg/dL Invalid Interpretation Code 4.5-5.6 [facility] Comment on above: Result Comment: [facility]f [facility]med at: [facility] [address] [place], [place] [id number] PhD Gokul Koch Performed By: #### 2 [id number] #### [facility] [address] [place] [id number] PTH [place] 09-04-2024 Parathyrin.intact [Mass/Vol] 18 pg/mL Invalid Interpretation Code 15 [facility] Comment on above: Result Comment: Perf ormed at: [facility] [address] [id number] PhD Gokul Koch Performed By: #### 1 [id number] #### [facility] [address] [place] [address] Phosphoruson 09-03-2024 Phosphate [Mass/Vol] 2.9 mg/dL Normal 1.9-4.6 [facility] Comment on above: Performed By: #### 2 [id number] #### [facility] [address] [place] [address] Vitamin D 25 Hydroxyon 09-03 25-hydroxyvitamin D3 [Mass/Vol] 26.1 ng/mL Low 30.0-100.0 [facility] Comment on above: Performed By: #### 5 [id number] #### [facility] [address] [place] [address] Ambulatory Visit Summaryon 0 09-01-2024 Ambulatory Visit Summary Ambulatory Visit Summary ZACHARY HOBBS :1945 Visit Date:09/01/2024 Ambulatory Visit Instructions Your Diagnosis Osteoporosis Prediabetes Essential hypertension Moderate COPD (chronic obstructive pulmonary disease) Moderate asthma, Asthma Vaccine counseling Insomnia Chronic low back pain with left-sided sciatica Spasm of lumbar paraspinous muscle Hip flexor tightness Abdominal weakness Somatic dysfunction of lower extremities Somatic dysfunction of sacral spine Somatic dysfunction of lumbar region Somatic dysfunction of thoracic region Adult BMI 26.0-26.9 kg/sq m Mild recurrent major depression Other chronic pain Your Care Team Attending Physician - Jeff De La Vega DO Primary Care Physician - Jeff De La Vega DO This Is Your Medications List buPROPion (buPROPion 300 mg/24 hours ER Tab) lorazepam (LORazepam 0.5 mg Tab) montelukast (montelukast 10 mg Tab) pravastatin (pravastatin 80 mg Tab) verapamil (verapamil 40 mg oral tablet) Contact prescribing physician if questions or concerns Non-Formulary Medication (Derrick probiotic and probiotic gummies) Oxygen (Oxygen - for Home) albuterol (Albuterol (Eqv-ProAir HFA) 90 mcg/inh inhalation aerosol) albuterol (albuterol 0.083% Inh Bing 3 mL) aspirin calcium-vitamin D (Calcium 600+D) fluticasone/umeclidi nium/vilanterol (Trelegy Ellipta 100 mcg-62.5 mcg-25 mcg inhalation powder) gabapentin (gabapentin 100 mg Cap) levothyroxine (levothyroxine 50 mcg (0.05 mg) Tab) melatonin (melatonin 10 mg oral tablet) multivitamin with minerals (Multivitamin, Therapeutic w/ Minerals) ocular lubricant (Refresh Optive) omeprazole (omeprazole 20 mg Cap-DR) zinc sulfate (Zinc) Procedures Performed Colonoscopy (03/27/2024), Tongue (12/17/2023), Cystourethroscopy with dilation of urethral stricture (12/20/2019), Colonoscopy (08/26/2015), Cataract, Colonoscopy, gamma knife radiation to L lung, hysterectomy, Lung biopsy sample, Oophorectomy, Tonsillectomy and adenoidectomy. Discharge Vitals Heart Rate (Peripheral) 89 Blood Pressure 128/66 Height 154 cm Height 61 in Weight 63.6 kg Weight 140.214 lb BMI 26.82 What to do next Scheduled Follow-Up Appointments 2024 2:00 PM EDT With: Jeff De La Vega DO Where: [address] [place] [address]- 2024 2:30 PM EST With: Where: [address] [place] [address]- You Need to Schedule the Following Appointments Follow Up with Jeff De La Vega DO, THAIS, PED When: Within 1 month Comments: OMT PRN - 40 min slot I have ordered labs to evaluate vitamin D and calcium - it usually takes a few days to get them back, we will call with results USPSTF recommends supplementing with 800 IU of vitamin D and 1,200 IU of calcium which are both available over the counter. If your numbers are in the desired range, and you'd like to resume alendronate, let me know Increase bupropion from 150mg to 300mg Continue Driven to Distraction -------- To go instructions (for follow up): On the day of manipulation, I strongly encourage you to to drink more water to help flush your system after today's treatment Work on using your core muscles more when standing and sitting, and especially when leaning away from your centerline or when lifting things This may take some concentration and work initially but it will eventually become more natural to you Work on shoulder retraction exercises For patients who can tolerate anti-inflammatories and/or tylenol, those medications can help provide some comfort while you work on optimizing function Getting adequate rest is important for managing musculoskeletal pain F/u 1 month or PRN Where: [address] [facility] [address] [place] [address] [phone] You Need to Complete the Following Calcium Level Ionized, Blood, Routine collect, 09/01/24, Order for future visit, Lab Collect, Osteoporosis, Not Required, Print Label By Order Location Phosphorus Level, Blood, Routine collect, 09/01/24, Order for future visit, Lab Collect, Osteoporosis, Not Required, Print Label By Order Location PTH Intact, Blood, Routine collect, 09/01/24, Order for future visit, Lab Collect, Osteoporosis, Not Required, Print Label By Order Location Vitamin D 25 Hydroxy, Blood, Routine collect, 09/01/24, Order for future visit, Lab Collect, Osteoporosis, Not Required, Print Label By Order Location Medications What How Much When Why Instructions Changed buPROPion (buPROPion 300 mg/ 24 hours ER Tab) 1 Tablets By Mouth Every 24 hours Mild recurrent major depression Pickup at [facility] Changed montelukast (montelukast 10 mg Tab) 1 Tablets By Mouth Every day Asthma Pickup at [facility] 1985 Unchanged lorazepam (LORazepam 0.5 mg Tab) 1 Tablets By Mouth Once a day (at bedti (more content not included)... Normal 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 Mena Cardiology Dr. Quezada Dermatology - Milad GUTIÉRREZ Vascular surgery [facility] monitoring carotid aneurysm ENT - Dr. Kathi Castellon - [facility] HPI staff / Chief Complaint confirmed with the patient This patient was seen for this complaint previously and treated with manipulation (OMT aka OMM). The patient reports SOME improvement of symptoms after OMT. Today, the patient reports their symptoms are PRESENT and is requesting OMT again. Based on their report of symptoms and my exam findings, I believe OMT is appropriate today. The patient expresses consent for manipulation today. Low back pain is 2-3out of 10 today as the patient sits At worst, low back pain is 6-7 out of 10 At best, low back pain is 1-2 out of 10 Described as dull ache along the belt line; occasionally sharp The patient describes radiation to the front of both thighs - worst on the right rest and certain positions seems to make it better walking, standing for extended periods of time seems to make it worse low back pain is the worst in the morning it usually gets better through out the day has tailbone pain in the morning taking lorazepam every night - still room for improvement DEXA revealed osteoporosis From last note: (tagged below) PHYSICAL EXAM Constitutional: Vital signs reviewed; this patient is well nourished, no acute distress Lungs: Clear to auscultation, non-labored respiration - expansion is symmetric Heart: Normal rate and rhythm, normal peripheral perfusion MSK: Gait is somewhat antalgic SI joint is tender on the right Lumbar paraspinal muscle tight/tender bilaterally; worse on the right Core muscles are sub-optimal in tension at rest Skin: Warm, dry Neurologic: Awake, alert and oriented Psychiatric: Cooperative, appropriate mood and affect, judgement is appropriate Procedure documentation - Osteopathic Manipulation: Thoracic Spine: Chronic and acute tissue texture changes of the trapezius, rhomboid BILAT; worse on the right - treated with myofascial, BLT and FPR - with objective and subjective improvement Lumbar Spine: Lumbar paraspinal restriction on the BILAT; worse on the left - treated with myofascial, BLT and FPR - with objective and subjective improvement Sacral: SI dysfunction on the BILAT; worse on the right - treated with BLT and FPR - with objective and subjective improvement Lower Extremity: Psoas restriction and tenderness on the right, TFL RESTRICTION on the left, and fibular head dysfunction and lateral gastroc restriction on the right - treated with BLT and FPR - with objective and subjective improvement PLAN: 1. Low Back pain (M54.50) Chronic. Stable Multifactorial etiology Medication does seem to provide ample benefit Does get benefit from OMT Discussed the importance of optimizing mechanics Discussed the rationale of manipulation in the future F/u 1 month or PRN *Patient denies any symptoms of progressively worsening upper/lower extremity weakness, progressively worsening gait abnormality, new onset bowel/bladder incontinence/ urinary retention, or saddle anesthesia. No new or worsening symptoms of fever, chills, night sweats. 2. Spasm of lumbar paraspinous muscle (M62.830), Spasm of thoracic paraspinal muscle (M62.830) Acute on chronic Likely contributing to the above Etiology is likely a combination of sub-optimal mechanics, muscle imbalance, posture vs other Discussed with the patient today about the importance of optimizing function and mechanics Emphasis placed on improving posture and trunk strength, stability Improved with OMM F/u 1 month 3. Abdominal weakness (R19.8) Acute on chronic Sub-optimal Likely playing a role in the patient's low back pain - as weak core muscles lead to overuse of posterior erector muscle groups and hip flexors for postural stability Given instructions on how to begin engaging core muscles - supine with knees bent Discusse (more content not included)... Normal [facility] Comment on above: Result Comment: Elec tronically Signed By: Jeff De La Vega DO\Date and Time Signed: 09/01/24 20:46 EST BD Bone Density DEXAon 08-12 BD Bone Density DEXA Exam Date/Time: 08/11/2024 10:34 EST Reason for Exam: E28.39;Menopausal Report IMPRESSION: OSTEOPOROSIS. The NOF/ISD guideline recommend FRAX for postmenopausal patients (not on treatment) if the lowest T-score for Spine(L1-L4), Femur Neck or Femur Total indicates low bone density (T score -1.0 to -2.5, osteopenia). EXAM: BD Bone Density DEXA CLINICAL HISTORY: Menopausal, E28.39. COMPARISON: 01/16/2022. COMMENTS: The lumbar spine and both hips were scanned. The mean bone mineral density from L1 to L4 is 1.093 g/cm2 and this value is -0.7 standard of deviation below the standard reference value for a young adult. Bone mineral density of the left femoral neck is 0.641 g/cm2 and this value is -2.9 standard of deviation below the standard reference value. Bone mineral density of the right femoral neck is 0.652 g/cm2 and this value is -2.8 standard of deviation below the standard reference value. The lowest value(s) meet WHO criteria for osteoporosis. Compared to prior study, 3.5% decrease in BMD of the lumbar spine, 8.4% decrease in BMD of the left femoral neck, and 9.6% decrease in BMD right femoral neck. RECOMMENDATIONS: 1. All patients should optimize her calcium and vitamin D intake. 2. Consider FDA-approved medical therapies in postmenopausal women and minimal age 50 years and older, based on the following: - hip or vertebral (clinical or morphometric) fracture. - T-score less than or equal to -2.5 at the femoral neck or spine after the appropriate evaluation to exclude secondary causes. - Low bone density (T score between -1.0 and -2.5 at the femoral neck or spine) and a 10 year probability of hip fracture greater than or equal to 3% or a 10-year probability of a major osteoporosis-related fracture greater than or equal to 20% based on FRAX calculation. - Clinician judgment and/or patient preferences may indicate treatment for people with 10 year fracture probability above or below these levels. - Further guidance on treatment can be found at the National Osteoporosis Foundation's website: bonesource.org 3. Patients with diagnosis of osteoporosis or high risk for fracture should have regular bone mineral density tests. For patients eligible for Medicare, routine testing is allowed once every 2 years. Testing frequency can be increased to 1 year for patient's history of rapidly progressing disease, those who are receiving or discontinuing medical therapy to restore bone mass or have additional risk factors. Report Ordering Provider: Jeff De La Vega FINAL REPORT Dictated: 08/12/2024 3:17 pm Todd Neff MD. Signed (Electronic Signature): 08/12/2024 3:17 pm Signed by: Todd Neff MD Transcribed by: OLGA Technologist: SPEEDY Normal [facility] XR Spine Lumbar Complete Inc luding Bendion 08-07-2024 XR Spine Lumbar Complete Including Bendi Exam Date/Time: 08/06/2024 15:33 EST Reason for Exam: Back pain Report IMPRESSION: Mild to moderate degenerative change lumbar spine, greatest in lower lumbar spine. CLINICAL INFORMATION: Back pain COMPARISON: NONE. COMMENT: 8 views. Lumbar vertebral bodies normal in height and alignment. No fracture, dislocation, or bone lesion. Disc space narrowing L2-L3 and L5-S1. Facet sclerosis L4 and L5. Ordering Provider: Jeff De La Vega FINAL REPORT Dictated: 08/07/2024 4:35 pm Aaron Briscoe MD Signed (Electronic Signature): 08/07/2024 4:35 pm Signed by: Aaron Briscoe MD Transcribed by: OLGA Technologist: FORTINO Normal [facility] Family Medicine Office/Clini c Noteon 08-05-2024 Family Medicine Office/Clinic Note Family Medicine Office/Clinic Note Chief Complaint neck ahoulder pain/OMT HPI Staff Patient here for Neck and shoulder pain/OMT SAMANTHA 07/07/24 Labs 07/30/24 Patient states she did not sleep well last due to back and hip discomfort. 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 Mena Cardiology Dr. Quezada Dermatology - Milad GUTIÉRREZ Vascular surgery [facility] monitoring carotid aneurysm ENT - Dr. Kathi Castellon - [facility] staff / Chief Complaint confirmed with the patient Today, the patient reports their symptoms are PRESENT and is requesting OMT. Based on their report of symptoms and my exam findings, I believe OMT is appropriate today. The patient expresses consent for manipulation today. The patient is aware that a student may be present during treatment. Low back pain is 3-4 out of 10 today as the patient sits At worst, low back pain is 8 out of 10 At best, low back pain is 2-3 out of 10 Described as dull ache along the belt line; occasionally sharp The patient describes radiation to the front of both thighs - worst on the right rest and certain positions seems to make it better walking, standing for extended periods of time seems to make it worse low back pain is the worst in the morning it usually gets better through out the day last night, she couldn't get comfortable - due to right SI joint pain this pain has been going on about 2 months she does mention that she pulled something in her back when she was trying to get up at the horse arena - she couldn't get a good footing and required assistance to get up... but this pain resolved within weeks after her last appt, she felt good that lasted for weeks symptoms started to get worse in the last week or so is no longer eating as much at meals, and she feels less compelled to indulge since starting bupropion From last note: (tagged below) PHYSICAL EXAM Constitutional: Vital signs reviewed; this patient is well nourished, no acute distress Lungs: Clear to auscultation, non-labored respiration - expansion is symmetric Heart: Normal rate and rhythm, normal peripheral perfusion MSK: Gait is somewhat antalgic SI joint is tender on the right Lumbar paraspinal muscle tight/tender bilaterally; worse on the right Core muscles are sub-optimal in tension at rest Skin: Warm, dry Neurologic: Awake, alert and oriented Psychiatric: Cooperative, appropriate mood and affect, judgement is appropriate Procedure documentation - Osteopathic Manipulation: Thoracic Spine: Chronic and acute tissue texture changes of the trapezius, rhomboid BILAT; worse on the right - treated with myofascial, BLT and FPR - with objective and subjective improvement Lumbar Spine: Lumbar paraspinal restriction on the BILAT; worse on the left - treated with myofascial, BLT and FPR - with objective and subjective improvement Sacral: SI dysfunction on the BILAT; worse on the right - treated with BLT and FPR - with objective and subjective improvement Lower Extremity: Psoas restriction and tenderness on the right, and fibular head dysfunction and lateral gastroc restriction on the right - treated with BLT and FPR - with objective and subjective improvement PLAN: 1. Low Back pain (M54.50) Chronic. Stable Multifactorial etiology Medication does seem to provide ample benefit Does get benefit from OMT Discussed the importance of optimizing mechanics Discussed the rationale of manipulation in the future F/u 1 month or PRN *Patient denies any symptoms of progressively worsening upper/lower extremity weakness, progressively worsening gait abnormality, new onset bowel/bladder incontinence/ urinary retention, or saddle anesthesia. No new or worsening symptoms of fever, chills, night sweats. 2. Spasm of lumbar paraspinous muscle (M62.830), Spasm of thoracic paraspinal muscle (M62.830) Acute on chronic Likely contributing to the above Etiology is likely a combination of sub-optimal mechanics, muscle imbalance, posture vs other Discussed with the patient today about the importance of optimizing function and mechanics Emphasis placed on improving posture and trunk strength, stability Improved with OMM F/u 1 month 3. Abdominal weakness (R19.8) Acute on (more content not included)... Normal [facility] Comment on above: Result Comment: Elec tronically Signed By: Jeff De La Vega DO\Date and Time Signed: 08/05/24 20:06 EST Ambulatory Visit Summaryon 0 08-04-2024 Ambulatory Visit Summary Ambulatory Visit Summary YOHANNESZACHARY NGUYEN Stephy :1945 Visit Date:08/04/2024 Ambulatory Visit Instructions Your Diagnosis Chronic low back pain with left-sided sciatica Spasm of lumbar paraspinous muscle Abdominal weakness Hip flexor tightness Somatic dysfunction of lower extremities Somatic dysfunction of lumbar region Somatic dysfunction of sacral spine Insomnia Hyperlipidemia Essential hypertension Prediabetes Acute low back pain Adult BMI 27.0-27.9 kg/sq m Other chronic pain Your Care Team Attending Physician - Jeff De La Vega DO Primary Care Physician - Jeff De La Vega DO This Is Your Medications List predniSONE (predniSONE 20 mg Tab) Contact prescribing physician if questions or concerns Non-Formulary Medication (Derrick probiotic and probiotic gummies) Oxygen (Oxygen - for Home) albuterol (Albuterol (Eqv-ProAir HFA) 90 mcg/inh inhalation aerosol) albuterol (albuterol 0.083% Inh Bing 3 mL) aspirin buPROPion (buPROPion 150 mg/24 hours XL Tab) calcium-vitamin D (Calcium 600+D) fluticasone/umeclidi nium/vilanterol (Trelegy Ellipta 100 mcg-62.5 mcg-25 mcg inhalation powder) gabapentin (gabapentin 100 mg Cap) levothyroxine (levothyroxine 50 mcg (0.05 mg) Tab) lorazepam (LORazepam 0.5 mg Tab) melatonin (melatonin 10 mg oral tablet) montelukast (montelukast 10 mg Tab) multivitamin with minerals (Multivitamin, Therapeutic w/ Minerals) ocular lubricant (Refresh Optive) omeprazole (omeprazole 20 mg Cap-DR) pravastatin (pravastatin 80 mg Tab) verapamil (verapamil 40 mg oral tablet) zinc sulfate (Zinc) [Image Removed: STOP]Stop taking these medications Misc Prescription (permanent handicap placard) Procedures Performed Colonoscopy (03/27/2024), Tongue (12/17/2023), Cystourethroscopy with dilation of urethral stricture (12/20/2019), Colonoscopy (08/26/2015), Cataract, Colonoscopy, gamma knife radiation to L lung, hysterectomy, Lung biopsy sample, Oophorectomy, Tonsillectomy and adenoidectomy. Discharge Vitals Heart Rate (Peripheral) 89 Blood Pressure 114/60 Height 154 cm Height 61 in Weight 64.1 kg Weight 141.316 lb BMI 27.03 What to do next Scheduled Follow-Up Appointments Saturday 1:00 PM EST With: Jeff De La Vega DO Where: [place] [address] [place] [address] 2024 2:30 PM EST With: Where: [facility] [place] [address] [place] [address]- You Need to Schedule the Following Appointments Follow Up with Ceferino ROSEN, THAIS Elliott, PED When: Within 1 month Comments: OMT PRN - 40 min slot Begin prednisone 40mg daily x 5 days Have lumbar xray done - that can be done at [facility] [place] [facility] or the convenient care by Ramiro Van ----- To go instructions (for follow up): On the day of manipulation, I strongly encourage you to to drink more water to help flush your system after today's treatment Work on using your core muscles more when standing and sitting, and especially when leaning away from your centerline or when lifting things This may take some concentration and work initially but it will eventually become more natural to you Work on shoulder retraction exercises For patients who can tolerate anti-inflammatories and/or tylenol, those medications can help provide some comfort while you work on optimizing function Getting adequate rest is important for managing musculoskeletal pain F/u 1 month or PRN Where: [address] [facility] [address] [place] [address] [id number] You Need to Complete the Following BD Bone Density DEXA, 08/04/24, Routine, Order for Future Visit, Transport Mode: Ambulatory, Reason: Menopausal, Screening due, No, pp_set_radiology_sub specialty, Required & Missing, Samuel Melyssa [place] XR Spine Lumbar Complete Including Bending, 08/04/24, Routine, Order for future visit, Transport Mode: Ambulatory, Reason: Back pain, No, Chronic low back pain with left-sided sciatica Acute low back pain, pp_set_radiology_sub specialty, Not Required, Samuel - Reza Medications What How Much When Why Instructions New predniSONE (predniSONE 20 mg Tab) 2 Tablets By Mouth Every day Acute low back pain Duration: 5 Days Pickup at [facility] Unchanged albuterol (Albuterol (Eqv-ProAir HFA) 90 mcg/ inh inhalation aerosol) 2 Puffs Inhalation Every 6 hours COPD mixed type Contact prescribing physician if questions or concerns Unchanged albuterol (albuterol 0.083% Inh Bing 3 mL) 3 Milliliter Inhalation Every 6 hours as needed for as needed for wheezing Q6H and PRN Contact prescribing physician if questions or concerns Unchanged aspirin 81 Milligram By Mouth Every day Contact prescribing physician if questions or concerns Unchanged buPROPion (buPROPion 150 mg/ 24 hours XL Tab) 1 Tablets By Mouth Every 24 hours Anxiety Contact prescribing physician if questions or concerns Un (more content not included)... Normal [facility] CBC w/ Auto Diffon 5 Basophils/100 WBC (Bld) 1.8 % Normal 0.0-2.0 [facility] Comment on above: Performed By: #### 2 [id number] #### [facility] [address] [place] [address] Basophils/Leukocyte s Auto (Bld) [Pure # fraction] 0.1 E9/L Normal 0.0-0.2 [facility] Comment on above: Performed By: #### 2 [id number] #### [facility] [address] [place] [address] Eosinophils (Bld) [#/Vol] 0.3 E9/L Normal 0.0-0.5 [facility] Comment on above: Performed By: #### 2 [id number] #### [facility] [address] [place] [address] Eosinophils/100 WBC (Bld) 4.2 % Normal 0.0-8.0 [facility] Comment on above: Performed By: #### 2 [id number] #### [facility] [address] [place] [address] Erythrocyte distribution width (RBC) [Ratio] 13.2 % Normal 10.9-14.2 [facility] Comment on above: Performed By: #### 2 [id number] #### [facility] [address] [place] [address] Hematocrit (Bld) [Volume fraction] 43.9 % Normal 34.0-46.0 [facility] Comment on above: Performed By: #### 2 [id number] #### [facility] [address] [place] [address] Hemoglobin (Bld) [Mass/Vol] 15.0 g/dL Normal 12.0-16.0 [facility] Comment on above: Performed By: #### 2 [id number] #### [facility] [address] [place] [address] Lymphocytes (Bld) [#/Vol] 1.8 E9/L Normal 1.0-4.0 [facility] Comment on above: Performed By: #### 2 974537 #### [facility] [address] [place] [address] Lymphocytes/100 WBC (Bld) 23.7 % Normal 14.0-50.0 [facility] Comment on above: Performed By: #### 2 604545 #### [facility] [address] [place] [address] MCH (RBC) [Entitic mass] 29.4 pg Normal 27.0-34.0 [facility] Comment on above: Performed By: #### 2 [id number] #### [facility] [address] [place] [address] MCHC (RBC) [Mass/Vol] 34.2 g/dL Normal 31.4-36.0 [facility] Comment on above: Performed By: #### 2 869031 #### [facility] [address] [place] [address] MCV (RBC) [Entitic vol] 86.2 fL Normal 80.0-100.0 [facility] Comment on above: Performed By: #### 2 762689 #### [facility] [address] [place] [address] Monocytes (Bld) [#/Vol] 0.5 E9/L Normal 0.2-1.0 [facility] Comment on above: Performed By: #### 2 370325 #### [facility] [address] [place] [address] Neutrophils (Bld) [#/Vol] 4.8 E9/L Normal 2.0-7.5 [facility] Comment on above: Performed By: #### 2 941407 #### [facility] [address] [place] [address] Neutrophils/100 WBC (Bld) 63.6 % Normal 36.0-75.0 [facility] Comment on above: Performed By: #### 2 877487 #### [facility] [address] [place] [address] Platelet 266.0 E9/L Normal 150.0-500.0 [facility] Comment on above: Performed By: #### 2 076286 #### [facility] [address] [place] [address] Platelet mean volume (Bld) [Entitic vol] 9.0 fL Normal 6.4-10.8 [facility] Comment on above: Performed By: #### 2 912302 #### [facility] [address] [place] [address] RBC (Bld) [#/Vol] 5.1 E12/L Normal 4.3-5.9 [facility] Comment on above: Performed By: #### 2 683333 #### [facility] [address] [place] [address] WBC corrected for nucl RBC Auto (Bld) [#/Vol] 7.5 E9/L Normal 4.0-11.0 [facility] Comment on above: Performed By: #### 2 397571 #### [facility] [address] [place] [address] CMPon 07-30-2024 Albumin [Mass/Vol] 4.3 g/dL Normal 3.3-5.0 [facility] Comment on above: Performed By: #### 2 638162 #### [facility] [address] [place] [address] Albumin/Globulin (S) [Mass conc ratio] 1.8 Normal 1.1-2.2 [facility] Comment on above: Performed By: #### 2 176449 #### [facility] [address] [place] [address] ALP [Catalytic activity/Vol] 95 Int._Unit/L Normal 21-98 [facility] Comment on above: Performed By: #### 2 726714 #### [facility] [address] [place] [address] ALT No additional P-5'-P [Catalytic activity/Vol] 14 Int._Unit/L Normal 6-46 [facility] Comment on above: Performed By: #### 2 065340 #### [facility] [address] [place] [address] Anion gap [Moles/Vol] 11 mmol/L Normal 6-16 [facility] Comment on above: Performed By: #### 2 708486 #### [facility] [address] [place] [address] AST [Catalytic activity/Vol] 17 Int._Unit/L Normal 5-43 [facility] Comment on above: Performed By: #### 2 827224 #### [facility] [address] [place] [address] Bilirubin [Mass/Vol] 1.1 mg/dL Normal 0.0-1.1 [facility] Comment on above: Performed By: #### 2 681002 #### [facility] [address] [place] [address] Calcium [Mass/Vol] 9.3 mg/dL Normal 8.9-11.1 [facility] Comment on above: Performed By: #### 2 496851 #### [facility] [address] [place] [address] Chloride [Moles/Vol] 105 mmol/L Normal 101-111 [facility] Comment on above: Performed By: #### 2 383526 #### [facility] [address] [place] [address] CO2 [Moles/Vol] 28 mmol/L Normal 21-31 [facility] Comment on above: Performed By: #### 2 444546 #### [facility] [address] [place] [address] Creatinine [Mass/Vol] 0.8 mg/dL Normal 0.5-1.3 [facility] Comment on above: Performed By: #### 2 886715 #### [facility] [address] [place] [address] Globulin (S) [Mass/Vol] 2.4 g/dL Normal 1.4-4.0 [facility] Comment on above: Performed By: #### 2 460113 #### [facility] [address] [place] [address] Glucose [Mass/Vol] 89 mg/dL Normal 55-199 [facility] Comment on above: Performed By: #### 2 001936 #### [facility] [address] [place] [address] Potassium [Moles/Vol] 4.0 mmol/L Normal 3.5-5.3 [facility] Comment on above: Performed By: #### 2 187456 #### [facility] [address] [place] [address] Protein [Mass/Vol] 6.7 g/dL Normal 6.0-7.8 [facility] Comment on above: Performed By: #### 2 037515 #### [facility] [address] [place] [address] Sodium [Moles/Vol] 140 mmol/L Normal 135-145 [facility] Comment on above: Performed By: #### 2 418022 #### [facility] [address] [place] [address] Urea nitrogen [Mass/Vol] 14 mg/dL Normal 5-21 [facility] Comment on above: Performed By: #### 2 360293 #### [facility] [address] [place] [address] Urea nitrogen/Creatinine [Mass ratio] 18 No Units Normal 10-20 [facility] Comment on above: Performed By: #### 2 332205 #### [facility] [address] [place] [address] [id number] 07-30-2024 HbA1c (Bld) [Mass fraction] 5.6 % Normal <=5.9 [facility] Comment on above: Performed By: #### 7 [id number] #### [facility] [address] [place] [address] Lipid Panelon 07-30-2024 Cholesterol [Mass/Vol] 184 mg/dL Normal 120-200 [facility] Comment on above: Performed By: #### 2 905806 #### [facility] [address] [place] [address] Cholesterol in HDL [Mass/Vol] 40 mg/dL Invalid Interpretation Code [facility] Comment on above: Result Comment: '>= 60 LOW RISK' '<= 40 HIGH RISK' Performed By: #### 2 144483 #### [facility] [address] [place] [address] Cholesterol in LDL [Mass/Vol] 113 mg/dL Normal <=129 [facility] Comment on above: Performed By: #### 2 292865 #### [facility] [address] [place] [address] Cholesterol in VLDL [Mass/Vol] 40 mg/dL Normal 7-40 [facility] Comment on above: Performed By: #### 2 192454 #### [facility] [address] [place] [address] Triglyceride [Mass/Vol] 200 mg/dL High <=149 [facility] Comment on above: Performed By: #### 2 213078 #### [facility] [address] [place] [address] TSH With T4fr Reflexon 07-30 TSH Qn 1.45 m[IU]/L Normal 0.34-5.60 [facility] Comment on above: Performed By: #### 1 [id number] #### [facility] [address] [place] [address] eGFRon 07-30-2024 eGFR 75 mL/min/1.73 m2 Normal >=59 [facility] Comment on above: Performed By: #### 1 [id number] #### [facility] [address] [place] [address] Ambulatory Visit Summaryon 1 Ambulatory Visit Summary Ambulatory Visit Summary ZACHARY HOBBS :1945 Visit Date:07/07/2024 Ambulatory Visit Instructions Your Diagnosis Chronic low back pain with left-sided sciatica Hip flexor tightness Abdominal weakness Spasm of lumbar paraspinous muscle Hx of squamous cell carcinoma excision Somatic dysfunction of lower extremities Somatic dysfunction of sacral spine Somatic dysfunction of lumbar region Full dentures Adult BMI 27.0-27.9 kg/sq m Anxiety Complete loss of teeth, unspecified cause, unspecified class Personal history of malignant neoplasm, unspecified Your Care Team Attending Physician - Jeff De La Vega DO Primary Care Physician - Jeff De La Vega DO This Is Your Medications List buPROPion (buPROPion 150 mg/24 hours XL Tab) lorazepam (LORazepam 0.5 mg Tab) Contact prescribing physician if questions or concerns Misc Prescription (permanent handicap placard) Non-Formulary Medication (Derrick probiotic and probiotic gummies) Oxygen (Oxygen - for Home) albuterol (Albuterol (Eqv-ProAir HFA) 90 mcg/inh inhalation aerosol) albuterol (albuterol 0.083% Inh Bing 3 mL) aspirin calcium-vitamin D (Calcium 600+D) fluticasone/umeclidi nium/vilanterol (Trelegy Ellipta 100 mcg-62.5 mcg-25 mcg inhalation powder) gabapentin (gabapentin 100 mg Cap) levothyroxine (levothyroxine 50 mcg (0.05 mg) Tab) melatonin (melatonin 10 mg oral tablet) montelukast (montelukast 10 mg Tab) multivitamin with minerals (Multivitamin, Therapeutic w/ Minerals) ocular lubricant (Refresh Optive) omeprazole (omeprazole 20 mg Cap-DR) pravastatin (pravastatin 80 mg Tab) verapamil (verapamil 40 mg oral tablet) zinc sulfate (Zinc) Procedures Performed Colonoscopy (03/27/2024), Tongue (12/17/2023), Cystourethroscopy with dilation of urethral stricture (12/20/2019), Colonoscopy (08/26/2015), Cataract, Colonoscopy, gamma knife radiation to L lung, hysterectomy, Lung biopsy sample, Oophorectomy, Tonsillectomy and adenoidectomy. Discharge Vitals Heart Rate (Peripheral) 100 Blood Pressure 120/60 Height 154 cm Height 61 in Weight 65.4 kg Weight 144.182 lb BMI 27.58 What to do next Scheduled Follow-Up Appointments Saturday 1:40 PM EST With: Jeff De La Vega DO Where: [facility] [address] [place] [address]24 2:30 PM EST With: Where: [facility] [address] [place] [address]- You Need to Schedule the Following Appointments Follow Up with Jeff De La Vega DO, THAIS, PED When: Within 1 month Comments: OMT PRN - 40 min slot Read Driven to Distraction by Tima Mora to learn more about ADHD https://www.[employer].com/slideshows/a gus-hhkehpev-flhcn-o ff-our-feet/ Begin bupropion 150mg XL daily If you are tolerating this medication but feel there's room for improvement after 1 month, let me know and we can increase this to 300mg daily ---- To go instructions (for follow up): On the day of manipulation, I strongly encourage you to to drink more water to help flush your system after today's treatment Work on using your core muscles more when standing and sitting, and especially when leaning away from your centerline or when lifting things This may take some concentration and work initially but it will eventually become more natural to you Work on shoulder retraction exercises For patients who can tolerate anti-inflammatories and/or tylenol, those medications can help provide some comfort while you work on optimizing function Getting adequate rest is important for managing musculoskeletal pain F/u 1 month or PRN Where: [address] [facility] [address] [place] [address] [phone] You Need to Complete the Following CBC w/ Auto Diff, Blood, Routine collect, 07/07/24, Order for future visit, Lab Collect, Centrilobular emphysema Essential hypertension Hyperlipidemia, Print Label By Order Location Comprehensive Metabolic Panel, Blood, Routine collect, 07/07/24, Order for future visit, Lab Collect, Centrilobular emphysema Essential hypertension, Print Label By Order Location HgbA1c, Blood, Routine collect, 07/07/24, Order for future visit, Lab Collect, Diabetes mellitus screening, Print Label By Order Location Lipid Panel, Blood, Routine collect, 07/07/24, Order for future visit, Lab Collect, Hyperlipidemia, Print Label By Order Location TSH With T4fr Reflex, Blood, Routine collect, 07/07/24, Order for future visit, Lab Collect, Hypothyroidism, Print Label By Order Location Medications What How Much When Why Instructions New buPROPion (buPROPion 150 mg/ 24 hours XL Tab) 1 Tablets By Mouth Every 24 hours Anxiety Refills: 5 Pickup at [facility] 1985 Unchanged lorazepam (LORazepam 0.5 mg Tab) 1 Tablets By Mouth Once a day (at bedtime) Insomnia 90 day rx Pickup at [facility] 1985 Unchanged albuterol (Al (more content not included)... Normal [facility] Family Medicine Office/Clini c Noteon 07-07-2024 Family Medicine Office/Clinic Note Family Medicine Office/Clinic Note Chief Complaint Hip Pain/OMT HPI Staff Patient here for Neck and shoulder pain/ OMT SAMANTHA 01/17/24 Labs DUE Patient states her right hip has been hurting. REFILL Lorazepam INTERVAL: 03/27 repeat 5 yr Mammogram/Negative 05/15/24 Pulmonary/ 04/20/24/PET SCAN result History of Present Illness Patient is a 78 year old white female who presents for Low back pain. 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 Mena Cardiology Dr. Quezada Dermatology - Milad GUTIÉRREZ Vascular surgery [facility] monitoring carotid aneurysm ENT - Dr. Kathi Castellon - [facility] staff / Chief Complaint confirmed with the patient Today, the patient reports their symptoms are PRESENT and is requesting OMT. Based on their report of symptoms and my exam findings, I believe OMT is appropriate today. The patient expresses consent for manipulation today. The patient is aware that a student may be present during treatment. originally made today's appt for neck and sholder pain but has since developed low back pain Low back pain is 2-3 out of 10 today as the patient sits At worst, low back pain is 8 out of 10 At best, low back pain is 1-2 out of 10 Described as dull ache along the belt line The patient describes radiation down the right leg rest and certain positions seems to make it better walking, standing for extended periods of time seems to make it worse She reports right hip pain started 3 weeks ago while reaching/extending to turn off her oxygen tank. Right hip pain is described as an intermittent sharp 8/10 pain. Pain is present when ambulating down stairs. She reports right sciatica pain. Patient states she had nausea, vomiting, diarrhea and fever for 4 days that ended less than 48 hours ago. She reports having CTA chest & pulmonary function test in February, colonoscopy in March 2024 and Mammogram in May 2024. From last note: (tagged below) PHYSICAL EXAM Constitutional: Vital signs reviewed; this patient is well nourished, no acute distress Lungs: Clear to auscultation, non-labored respiration - expansion is symmetric Heart: Normal rate and rhythm, normal peripheral perfusion MSK: Gait is somewhat antalgic SI joint is tender on the right Lumbar paraspinal muscle tight/tender bilaterally; worse on the right Core muscles are sub-optimal in tension at rest Skin: Warm, dry Neurologic: Awake, alert and oriented Psychiatric: Cooperative, appropriate mood and affect, judgement is appropriate Procedure documentation - Osteopathic Manipulation: Thoracic Spine: Chronic and acute tissue texture changes of the trapezius, rhomboid BILAT; worse on the right - treated with myofascial, BLT and FPR - with objective and subjective improvement Lumbar Spine: Lumbar paraspinal restriction on the BILAT; worse on the left - treated with myofascial, BLT and FPR - with objective and subjective improvement Sacral: SI dysfunction on the BILAT; worse on the right - treated with BLT and FPR - with objective and subjective improvement Lower Extremity: Psoas restriction and tenderness on the right, and fibular head dysfunction and lateral gastroc restriction on the right - treated with BLT and FPR - with objective and subjective improvement PLAN: 1. Low Back pain (M54.50) Chronic. Stable Multifactorial etiology Medication does seem to provide ample benefit Does get benefit from OMT Discussed the importance of optimizing mechanics Discussed the rationale of manipulation in the future F/u 1 month or PRN *Patient denies any symptoms of progressively worsening upper/lower extremity weakness, progressively worsening gait abnormality, new onset bowel/bladder incontinence/ urinary retention, or saddle anesthesia. No new or worsening symptoms of fever, chills, night sweats. 2. Spasm of lumbar paraspinous muscle (M62.830), Spasm of thoracic paraspinal muscle (M62.830) Acute on chronic Likely contributing to the above Etiology is likely a combination of sub-optimal mechanics, muscle imbalance, posture vs other Discussed with the patient today about the importance of optimizing function and mechanics Emphasis placed on improving posture and trunk strength, stability Improved with OMM F/u 1 month 3. Abdominal weakness (R19.8) (more content not included)... Normal [facility] Comment on above: Result Comment: Elec tronically Signed By: Jeff De La Vega DO\.br\Date and Time Signed: 07/07/24 15:55 EST\.br\Electronically Co-Signed By: Nohelia Patino [facility] StudentShira\.br\Date and Time Co-Signed: 07/07/24 11:51 EST Ambulatory Visit Summaryon 07-27-2023 Ambulatory Visit Summary Ambulatory Visit Summary ZACHARY HOBBS :1945 Visit Date:05/26/2024 Ambulatory Visit Instructions Your Diagnosis Encounter for annual wellness visit (AWV) in Medicare patient Centrilobular emphysema Essential hypertension GERD (gastroesophageal reflux disease) Hyperlipidemia Moderate COPD (chronic obstructive pulmonary disease) Osteopenia Neuropathy of finger Diabetes mellitus screening Your Care Team Attending Physician - Jeff De La Vega DO Primary Care Physician - Jeff De L aVega DO This Is Your Medications List Misc Prescription (permanent handicap placard) Non-Formulary Medication (Derrick probiotic and probiotic gummies) Oxygen (Oxygen - for Home) albuterol (Albuterol (Eqv-ProAir HFA) 90 mcg/inh inhalation aerosol) albuterol (albuterol 0.083% Inh Bing 3 mL) aspirin calcium-vitamin D (Calcium 600+D) fluticasone/umeclidi nium/vilanterol (Trelegy Ellipta 100 mcg-62.5 mcg-25 mcg inhalation powder) gabapentin (gabapentin 100 mg Cap) levothyroxine (levothyroxine 50 mcg (0.05 mg) Tab) lorazepam (LORazepam 0.5 mg Tab) melatonin (melatonin 10 mg oral tablet) montelukast (montelukast 10 mg Tab) multivitamin with minerals (Multivitamin, Therapeutic w/ Minerals) ocular lubricant (Refresh Optive) omeprazole (omeprazole 20 mg Cap-DR) pravastatin (pravastatin 80 mg Tab) verapamil (verapamil 40 mg oral tablet) zinc sulfate (Zinc) Procedures Performed Colonoscopy (03/27/2024), Tongue (12/17/2023), Cystourethroscopy with dilation of urethral stricture (12/20/2019), Colonoscopy (08/26/2015), Cataract, Colonoscopy, gamma knife radiation to L lung, hysterectomy, Lung biopsy sample, Oophorectomy, Tonsillectomy and adenoidectomy. What to do next Scheduled Follow-Up Appointments Saturday 11:00 AM EST With: Jeff De La Vega DO Where: [facility] [place] [address] [place] [address] 2024 2:30 PM EST With: Where: [address] [place] [address]- You Need to Complete the Following CBC w/ Auto Diff, Blood, Routine collect, 05/26/24, Order for future visit, Lab Collect, Centrilobular emphysema Essential hypertension Hyperlipidemia, Print Label By Order Location Comprehensive Metabolic Panel, Blood, Routine collect, 05/26/24, Order for future visit, Lab Collect, Centrilobular emphysema Essential hypertension, Print Label By Order Location HgbA1c, Blood, Routine collect, 05/26/24, Order for future visit, Lab Collect, Diabetes mellitus screening, Print Label By Order Location Lipid Panel, Blood, Routine collect, 05/26/24, Order for future visit, Lab Collect, Hyperlipidemia, Print Label By Order Location TSH With T4fr Reflex, Blood, Routine collect, 05/26/24, Order for future visit, Lab Collect, Hypothyroidism, Print Label By Order Location Medications What How Much When Why Instructions Unchanged albuterol (Albuterol (Eqv-ProAir HFA) 90 mcg/ inh inhalation aerosol) 2 Puffs Inhalation Every 6 hours COPD mixed type Unchanged albuterol (albuterol 0.083% Inh Bing 3 mL) 3 Milliliter Inhalation Every 6 hours as needed for as needed for wheezing Q6H and PRN Unchanged aspirin 81 Milligram By Mouth Every day Unchanged calcium-vitamin D (Calcium 600+D) 1 tab By Mouth Every day Unchanged fluticasone/ umeclidinium/ vilanterol (Trelegy Ellipta 100 mcg-62.5 mcg-25 mcg inhalation powder) 1 Puffs Inhalation Every day Unchanged gabapentin (gabapentin 100 mg Cap) 1 Capsules By Mouth 3 times a day Unchanged levothyroxine (levothyroxine 50 mcg (0.05 mg) Tab) 1 Tablets By Mouth Every day Hypothyroidism Unchanged lorazepam (LORazepam 0.5 mg Tab) 1 Tablets By Mouth Once a day (at bedtime) Insomnia 90 day rx Unchanged melatonin (melatonin 10 mg oral tablet) By Mouth Once a day (at bedtime) Unchanged Misc Prescription (permanent handicap placard) See instructions 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 Unchanged montelukast (montelukast 10 mg Tab) 1 Tablets By Mouth Once a day (in the evening) Asthma, persistent not controlled Unchanged multivitamin with minerals (Multivitamin, Therapeutic w/ Minerals) 1 Tablets By Mouth Every day Unchanged Non-Formulary Medication (Derrick probiotic and probiotic gummies) Unchanged ocular lubricant (Refresh Optive) 1 Drops Both eyes 2 times a day as needed for Dry eyes Unchanged omeprazole (omeprazole 20 mg Cap-DR) 2 Capsules By Mouth Every day GERD (gastroesophageal reflux disease) Unchanged Oxygen (Oxygen - for Home) 2 Liter/minute Nasal Cannula Every day Oxygen - Continuous or Nocturnal Diagnosis: Portable 02 for physician visits, oxygen conservation Unchanged pravastatin (pravastatin 80 mg Tab) 1 Tablets By Mouth Once a day (at bedtime) Unchanged verapamil (verapamil 40 mg oral tablet) 1 Tablets By Mouth 2 times a day Essential hypertensi (more content not included)... Normal [facility] Family Medicine Office/Clini c Noteon 05-27-2024 Family Medicine Office/Clinic Note Family Medicine Office/Clinic Note Chief Complaint Subsequent AWV Review of Systems PHQ Score Initial Depression Screen Score: 0 SCORE Physical Exam Vitals & Measurements HR: 75(Peripheral) RR: 16 BP: 130/70 SpO2: 91% HT: 159 cm HT: 63 in WT: 65 kg WT: 143.3 lb BMI: 25.71 Assessment/Plan 1. Encounter for annual wellness visit (AWV) in Medicare patient (Z00.00: Encounter for general adult medical examination without abnormal findings) The patient was given a customized and personalized print out of all the current AHRQ USPSTF???s recommendations for preventative services and all current CDC recommended immunizations, relevant risk recommendations and the following patient brochures were given. Reviewed What can I expect during my Medicare preventative care visit CDC-Falls Prevention and home safety screening reviewed. Patient denies any falls in last 12 months, voices no worry about falling, exhibits no problems with sitting and standing. Pt voices understanding with keeping walk way area free of clutter to prevent tripping and/or falling. [place] Advance Directives reviewed, on file in chart. No changes are needed. Patient denies any problems with ADL???s and Instrumental ADL???s. Cognitive screening completed with memory and clock face drawing. No decline noted. Immunization Record reviewed with the patient. Discussed Shingrix vaccine with educational handout and availability. COVID vaccines have been administered, immunization record is up to date. Allergies and medications reviewed and up to date. Patient denies concerns with taking medication as prescribed, reviewed OTC medications with patient with medication list up to date. Blood tests were reviewed: Discussed what tests need to be updated. Colonoscopy up to date, due for repeat PRN. DEXA scan and Mammogram are up to date. Reviewed concerns with bladder control over past 6 months with no concerns. Reviewed pain symptoms with patient: 010 Reviewed all outside providers that patient follows. Last visit summary notes available in chart and/or have been requested. Follow up scheduled 07/07/2024 AWV has been scheduled 05/27/2025 Medicare provides yearly screening for alcohol and depression concerns. This is completed during our Medicare wellness visit for those who do not have a current diagnosis of depression or concerns with alcohol use. I spent a total of 11 minutes on this date of service which included preparing to see the patient, face to face patient care, completing clinical documentation, obtaining and/or reviewing separately obtained history, counseling and educating the patient with handouts. Explanations were provided with reviewing questionnaires. AUDIT risk assessment screening completed, risk score (0) with patient denying concerns with use. Completed PHQ-2 risk assessment for depression with risk score (0), negative findings. Patient has been reminded to notify the provider if there would be a change or concerns with symptoms with fear, unable to sleep, worrying too much or feeling down and/or sad with lost of interest with daily activities. Will continue to monitor with screening yearly during Medicare wellness visits. 2. Centrilobular emphysema (J43.2: Centrilobular emphysema) Patient using Singular, Trelegy and Albuterol HFA daily as directed with effectiveness. PRN nebulizer used with relief with SOB after exertion. Encouraged to remain active, reviewed Pulmonary nutritional recommendations handout during visit. Will continue to monitor for changes and/or concerns with office visits. Pulse ox today was 3. Essential hypertension (I10: Essential (primary) hypertension) Patient is taking Verapamil daily as directed. Does monitor BP pressure at home. Reviewed with pt BP goal to be <140/90. Reviewed different factors that can alter blood pressure readings. Education handout provided with s/s to monitor for and report to provider. Patient is encouraged to increase portions of fruit, vegetables, fiber and increase exercise as much as tolerable. Reviewed importance with monitoring foods high in salt content and encouraged to limit intake, if unsure encouraged to discuss with their PCP. Encouraged to eat more chicken, fish and lean white meats and limits red meats in diet. Discussed importance with keeping BP under good control to reduce CVA risk factors. Will continue to f/u with PCP during office visits and as needed. 4. GERD (gastroesophageal reflux disease) (K21.9: Gastro-esophageal reflux disease without esophagitis) Patient taking Omeprazole as directed with symptoms managed. Reviewed nutrition therapy with recommended foods to help control your symptoms. 5. Hyperlipidemia (E78.5: Hyperlipidemia, unspecified) The role of Statins extends beyond lowering blood levels of cholesterol and LDL and CKD. Statins can also reduce inflammation which increases risk factors for heart disease due to plaque buildup. Reviewed symptoms to monitor for and report to PCP ie: cramping, mu (more content not included)... Normal [facility] Comment on above: Result Comment: Elec tronically Signed By: Jeff De La Vega DO\.tanja\Date and Time Signed: 05/27/24 18:49 EST\.br\Electronically Co-Signed By: Myron Ricketts LPN\.br\Date and Time Co-Signed: 05/27/24 16:16 EST MA Mamm Screen w/CAD if perf and 3D Bilon 05-19-2024 MA Mamm Screen w/CAD if perf and 3D Harvey Exam Date/Time: 05/15/2024 14:17 EST Reason for Exam: Z12.31;Screening Report IMPRESSION: BIRADS 1 NEGATIVE, NORMAL INTERVAL FOLLOW-UP.12 MONTH RECALL. CLINICAL HISTORY: Screening, Z12.31. COMPARISON: 11/28/2022. COMMENT: Routine views and tomosynthesis views of both breasts were obtained. There are scattered areas of fibroglandular density. No dominant breast mass nor neoplastic calcifications are identified in either breast. There has been no significant change from the previous exam. The examination was reviewed with Computer Aided Detection. Breast Density: No Mammography is very important to your health. The current [employer] and National Comprehensive Cancer Network guidelines recommends annual mammography beginning at age 40. This facility utilizes a reminder system to ensure all patients receive reminder notifications at the appropriate time based on the recommendations of this exam. Board Certified Radiologists. Accredited by the ACR and FDA. Ordering Provider: Jeff De La Vega FINAL REPORT Dictated: 05/19/2024 2:24 pm Leandro Alvarez M.D. Signed (Electronic Signature): 05/19/2024 2:24 pm Signed by: Leandro Alvarez M.D. Transcribed by: OLGA Technologist: AP Assessment: BI-RADS Category 1-Negative Recommendation: Normal interval follow-up Normal [facility] Pulmonology Office/Clinic No ashu 04-20-2024 Pulmonology Office/Clinic Note Pulmonology Office/Clinic Note History of Present Illness She underwent PET scan which showed mild uptake SUV 2.6 more consistent with postradiation changes. There is no significant change between the PET scan and the recent CT chest in February. She said that she was followed with radiation oncology at [facility] She still complaining of pain in the chest she does have chronic pain in the left arm and left shoulder she is also complaining of tightness across the chest. She is on bronchodilator therapy with Trelegy and albuterol she does report that she had the upper respiratory illness a week ago Review of Systems 12 point system review was done and negative except what mentioned in HPI Physical Exam General: no distress Skin: warm, dry Head: no trauma, normocephalic Neck: Trachea midline , no adenopathy, no tenderness Eye: normal conjunctiva, sclera clear ENMT: oral mucosa moist Cardiovascular: regular rate and rhythm, normal Respiratory: Lungs CTA ,respirations non labored Chest wall: no deformity. Gastrointestinal: soft , non distended , no tenderness, no guarding. Extremities: no deformity, no trauma Neurological: nonfocal Assessment/Plan 1. Lung cancer (C34.90: Malignant neoplasm of unspecified part of unspecified bronchus or lung) 2. 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 disease, unspecified) 3. Lung nodule (R91.1: Solitary pulmonary nodule) Ordered: CT Chest w/o Contrast The findings on PET scan are more suggestive of postradiation changes, I will also try to obtain her old scans from [facility]. The patient stated that she is due for a CAT scan with her radiation oncologist in about 6 months we will plan on continuous surveillance Continue bronchodilators for COPD Follow-up No qualifying data available 6-month Problem List/Past Medical History Ongoing Aortic valve sclerosis Arthritis of knee Bradycardia Bruise Cellulitis, leg Centrilobular emphysema Cervical arthritis Chronic low back pain with left-sided sciatica Complete tear of finger ligament Constipation, outlet dysfunction Cough COVID Ear pain Elevated TSH Encounter for screening mammogram for breast cancer Essential hypertension Eustachian tube dysfunction Family hx of colon cancer Fatigue Former smoker GERD (gastroesophageal reflux disease) H/O: hysterectomy Hyperlipidemia Incomplete bladder emptying Insomnia Knee pain Moderate asthma Moderate COPD (chronic obstructive pulmonary disease) Neck pain Neuropathy of finger Nocturnal hypoxia Osteopenia Otitis externa Palpitations Pelvic floor dysfunction Personal history of COVID-19 Pollen allergy Poor posture Preoperative clearance Rib pain Somatic dysfunction of cervical region Somatic dysfunction of head region Somatic dysfunction of lower extremities Somatic dysfunction of lumbar region Somatic dysfunction of sacral spine Somatic dysfunction of thoracic region Somatic dysfunction of upper extremities Spasm of lumbar paraspinous muscle Stress incontinence Tongue lesion Trapezius muscle spasm Urethral stricture Urinary frequency Weak urinary stream Historical Adult BMI 27.0-27.9 kg/sq m Aneurysm of internal carotid artery Cervical radiculopathy Chronic obstructive pulmonary disease with (acute) exacerbation Chronic respiratory failure with hypoxia COVID-19 emphysema Exertional chest pain Exposure to chemical irritant H/O: lung cancer Hypercholesterolemia Lung cancer Malignant neoplasm of upper lobe, left bronchus or lung Nicotine dependence Nocturia Oral thrush JESIKA (obstructive sleep apnea) Osteoporosis Panacinar emphysema Plantar fasciitis of right foot Pulmonary nodule, left Shortness of breath Procedure/Surgical History Colonoscopy (03/27/2024), Tongue (12/17/2023), Cystourethroscopy with dilation of urethral stricture (12/20/2019), Colonoscopy (08/26/2015), Cataract, Colonoscopy, gamma knife radiation to L lung, hysterectomy, Lung biopsy sample, Oophorectomy, Tonsillectomy and adenoidectomy. Medications Albuterol (Eqv-ProAir HFA) 90 mcg/inh inhalation aerosol, 2 puff(s), Inhalation, q6hr, 6 refills albuterol 0.083% Inh Bing 3 mL, 2.5 mg= 3 mL, Inhalation, q6hr, PRN, 11 refills aspirin, 81 mg, Oral, Daily Calcium 600+D, 1 tab, Oral, Daily gabapentin 100 mg Cap, 100 mg= 1 cap(s), Oral, TID levothyroxine 50 mcg (0.05 mg) Tab, 50 mcg= 1 tab(s), Oral, Daily, 4 refills LORazepam 0.5 mg Tab, 0.5 mg= 1 tab(s), Oral, Once a day (at bedtime) melatonin 10 mg oral tablet, Oral, Once a day (at bedtime) montelukast 10 mg Tab, 10 mg= 1 tab(s), Oral, qPM, 4 refills Multivitamin, Therapeutic w/ Minerals, 1 tab(s), Oral, Daily, Not taking Derrick probiotic and probiotic gummies omeprazole 20 mg Cap-DR, 40 mg= 2 cap(s), Oral, Daily Oxygen - for Home, 2 L/min, Nasal Cannula, Daily permanent handicap placard, See Instructions pra (more content not included)... Normal [facility] Comment on above: Result Comment: Elec tronically Signed By: Rajesh ELAINE, David Mari\.br\Date and Time Signed: 04/20/24 10:12 EDT [place] [facility] [place] [facility] [place] [facility] April 13, 2024 ZACHARY HOBBS [address] [place] [address] : 1945 Below is a summary of the results of your recent colonoscopy. Your results have been sent to your primary care provider along with recommendations on when the procedure should be repeated. COLONOSCOPY WITH POLYP REMOVAL OR BIOPSY Type of polyp 1 - tubular adenoma - not cancer but can become cancer if not removed. Additional colonoscopies will be necessary to monitor your condition and assure that new polyps have not developed. 1 - hyperplastic polyps - benign - not considered precancerous Based on your results we are recommending you repeat the procedure in 5 years You will be placed in our reminder system and will receive a reminder letter prior to your next due date. [facility] [phone] [facility] Comment on above: Other Comment: oscar vizcaino sent Reminderson 04-13-2024 Reminders Reminders - From: Shira Pacheco I To: [facility] - Reminders/Recalls; Sent: 04/13/2024 13:19:47 EDT Show up: 01/05/2029 13:19:00 EDT Subject: Colonoscopy recall Due Date/Time: 03/27/2029 13:19:00 EDT Reminder/Recall [address] Martell 03/27/24 [facility] Comment on above: Other Comment: oscar vizcaino placed NM PET w/ CT Scan Skull Base to Midthighon 04-12-2024 NM PET w/ CT Scan Skull Base to Midthigh Exam Date/Time: 04/08/2024 17:00 EDT Reason for Exam: lung cancer;Re-Staging Report IMPRESSION: MILD FDG METABOLISM WITHIN CHRONIC POST RADIATION CHANGES OF THE LATERAL LEFT LUNG APEX DO NOT SUGGEST SIGNIFICANT RECURRENT OR RESIDUAL MALIGNANCY. FOLLOW-UP CHEST CT WITHOUT CONTRAST IN 6 to 12 MONTHS COULD BE CONSIDERED. NO EVIDENCE OF DISTANT METASTATIC DISEASE. COPD CHRONIC CHANGES, SIMILAR TO PRIOR STUDIES. EXAM: NM PET w/ CT Scan Skull Base to Midthigh DATE: 04/08/2024 3:30 PM CLINICAL HISTORY: Re-Staging, lung cancer. COMPARISON: Chest CTA dated 09/25/2023 and PET/CT on 06/26/2017. TECHNIQUE: Following the administration of 12.14 millicuries of W49-Mvdkedjednvnoykc se (FDG), scans were obtained from the base of the skull to the mid thigh on a dedicated PET CT unit. Using the social media marketing specialist\X2019\s standard software, data were reconstructed using filtered back projection with and without attenuation correction. A low dose, noncontrast CT provided attenuation correction and anatomic localization. The patient\X2019\s baseline blood glucose was 86. FINDINGS: Mild metabolism is associated with soft tissue thickening of the lateral left lung apex and adjacent chronic bony change of the left second rib most consistent with post radiation treatment change (SUV max 2.6) A small area of mild metabolism within the posteromedial aspect of the mid right upper lobe is associated with minimal groundglass opacity (SUV max 1.3), consistent with mild inflammation. There are no other abnormal areas of hypermetabolism are identified elsewhere within the chest, neck, abdomen or pelvis. No significant changes are identified from 07/19/2016, including nonhypermetabolic renal cysts. Report Ordering Provider: David Mena FINAL REPORT Dictated: 04/12/2024 9:53 am Derek Mayer MD Signed (Electronic Signature): 04/12/2024 9:53 am Signed by: Derek Mayer MD Transcribed by: OLGA Technologist: TOMASA Technical Comments Dose (mCi F-18 FDG): 12.1 Imaging Post Administration (mins): [address] [facility] Reminderson 04-08-2024 Reminders Reminders - From: Karlee Joshi To: [facility] - Reminders/Recalls; Sent: 04/08/2024 16:21:17 EDT Show up: 02/24/2029 16:20:00 EDT Subject: Ambulatory Reminder- colonoscopy 5 years Due Date/Time: 03/27/2029 16:20:00 EDT Reminder/Recall Colonoscopy- 03/27/2024 Dr Martell [address] [facility] Result Letter Officeon 04-08 Result Letter Office Result Letter Office April 08, 2024 ZACHARY HOBBS [address] [place] [address] : 1945 Below is a summary of the results of your recent colonoscopy. COLONOSCOPY WITH POLYP REMOVAL OR BIOPSY Type of polyp tubular adenoma - not cancer but can become cancer if not removed. Additional colonoscopies will be necessary to monitor your condition and assure that new polyps have not developed. Based on your results we are recommending you repeat the procedure in 5 years You will be placed in our reminder system and will receive a reminder letter prior to your next due date. [facility] [phone] [facility] Surgical Pathology Reporton 04-01-2024 Surgical Pathology Report [facility] [address] [place] [address]- Surgical Pathology Report Collected Date/Time: 03/27/2024 08:51 EDT Pathologist: Juan Lewis MD Received Date/Time: 03/27/2024 10:04 EDT Jasbir ELAINE, Irma Martell MD, Irma Feng Surgical Pathology Report - 04/01/2024 14:00 EDT - Auth (Verified) Final Diagnosis A: COLON, TRANSVERSE, POLYPECTOMY: - Tubular adenoma. B: RECTUM, POLYPECTOMY: - Hyperplastic polyp. (Electronic Signature) Yan. Debbie MD 04/01/2024 14:00 Clinical Information Pre-Op Diagnosis: History of colon polyps, family history of colon cancer Procedure: Colonoscopy Post-Op Diagnosis: 1. Two colon polyps 2. Diverticulosis 3. Internal hemorrhoids Specimen(s) Received A.Transverse colon polyp B.Rectal polyp Gross Description A: Received in formalin labeled with patient name, number, and transverse colon polyp is a single fragment of swan tissue measuring 0.5 x 0.1 x 0.1 cm. Specimen is entirely submitted in one cassette. B: Received in formalin labeled with patient name, number, and rectal polyp is a single fragment of swan tissue measuring 0.2 x 0.2 x 0.1 cm. Specimen is entirely submitted in one cassette. (DC) DC:[facility] Microscopic Description A&B: Microscopic examination performed unless gross only specified. [facility] Comment on above: Performed By: #### [id number] #### [facility] [address] [place] [address] Main OR Intraoperative Recor don 03-30-2024 Main OR Intraoperative Record Main OR Intraoperative Record IntraOp Document Type FT Summary Primary Physician: Irma Martell MD Finalized Date/Time: 03/30/24 11:45:15 Pt. Name: ZACHARY HOBBS /Sex: 1945 Female Med Rec #: [id number] Physician: Irma Martell MD Financial #: [id number] Pt. Type: O Room/Bed: / Admit/Disch: 03/27/24 07:06:46 - 03/27/24 23:59:59 Institution: Case Times FT Entry 1 Patient Times In Room 03/27/24 08:38:00 Out Room 03/27/24 08:59:00 Procedure Times Start 03/27/24 08:43:00 Stop 03/27/24 08:56:00 Anesthesia Times Start 03/27/24 08:38:00 Stop 03/27/24 08:59:00 Time at [facility] 03/27/24 08:46:00 Last Modified By: Karsten Mathis RN 03/27/24 08:59:43 General Comments: 03/30/24 Chart opened to review and send charges LRoth CSFA Case Attendance FT Entry 1 Entry 2 Entry 3 Case Attendee Alek Ramos RN, Hayley Hurtado Role Performed Anesthesiologist Nuclear Monitoring Technician - Primary Scrub - Primary Table Games Dealer Time In 03/27/24 08:38:00 03/27/24 08:38:00 03/27/24 08:38:00 Time Out 03/27/24 08:59:00 03/27/24 08:59:00 03/27/24 08:59:00 Procedure COLONOSCOPY(.) COLONOSCOPY(.) COLONOSCOPY(.) Comments Dr. Peralta supervising case Last Modified By: Delfina LAY, Karsten Mathis RN, Karsten Bloom RN 03/27/24 08:59:44 03/27/24 08:59:44 03/27/24 08:59:44 Entry 4 Entry 5 Case Attendee Mirna MOTA, Theresa Martell MD, Irma Espitia Role Performed Staff - Other Surgeon - Primary Time In 03/27/24 08:38:00 03/27/24 08:38:00 Time Out 03/27/24 08:59:00 03/27/24 08:59:00 Procedure COLONOSCOPY(.) COLONOSCOPY(.) Comments help in room Last Modified By: Karsten Mathis RN, RN, Morgan E 03/27/24 08:59:44 03/27/24 08:59:44 Perioperative Protocols FT Pre-Care Text: Implements protective measures prior to operative or invasive procedure, confirms identity before the operative or invasive procedure, verifies operative procedure, surgical site, and laterality Entry 1 Procedure(s) COLONOSCOPY(.) Patient Identity Birthday, ID Band Verified (select at Check, Patient least 2): Participation Consents / H and P Anesthesia Consent, Operative Site N/A Verified H&P, Surgery/Procedure Marking Verified Consent Surgical Site No Laterality Verified n/a Verified Procedure Verified Yes Correct Patient Yes Position Verified Availability Equipment, Medication Prep Dry n/a Verified (If Applicable) PreOp Antibiotic No Time Out Alek Ramos, Given Participants Karsten Mathis RN, Miles, Kirstyn K, Mirna BARBED WIRE MACHINE OPERATOR, Jasbir Landrum MD, Irma Galeas Time Out Complete 03/27/24 08:41:00 Outcomes Met? Yes Last Modified By: Karsten Mathis RN 03/27/24 08:43:06 Post-Care Text: The patient is free from signs and symptoms of injury caused by extraneous objects Allergy Information FT Pre-Care Text: Verifies allergies Entry 1 Allergies Reviewed? Yes Allergies Reviewed Self/Patient With Outcomes Met? Yes Last Modified By: Karsten Mathis RN 03/27/24 08:43:13 Post-Care Text: The patient received appropriate medication(s) safely administered during the perioperative period Surgical Procedures FT Entry 1 Procedure Description Procedure COLONOSCOPY Modifiers . Surgeon Description Colonoscopy with transverse colon polypectomy and rectal polypectomy Primary Procedure Yes Primary Surgeon Jasbir ELAINE, Irma Galeas Start 03/27/24 08:43:00 Stop 03/27/24 08:56:00 Anesthesia Type General Surgical Service Gastroenterology Wound Class 2 - Clean-Contaminated Last Modified By: Karsten Mathis RN 03/27/24 08:59:26 General Case Data FT Pre-Care Text: Classifies surgical wound, implements aseptic technique, initiates traffic control Entry 1 Case Information OR ENDO 1 FT Case Level Level 2 Wound Class 2 - Clean-Contaminated Specialty Gastroenterology ASA Class 3 Preop Diagnosis History of colon Postop Same As Preop No polyps, Family history of colon cancer Postop Diagnosis Transverse colon polyp, Outcomes Met? Yes Rectal polyp, Diverticulosis, Internal hemorrhoids Last Modified By: Karsten Mathis RN 03/27/24 08:59:33 Post-Care Text: The patient is free from signs and symptoms of infection Skin Assessment (Pre Procedure) FT Pre-Care Text: Implements protective measures to prevent skin/ tissue injury due to thermal or mechanical sources Evaluates for signs and symptoms of physical injury to skin and tissue Entry 1 Skin Integrity Dry, Warm Skin Abnormality No Outcomes Met? Yes Last Modified By: Karsten Mathis RN 03/27/24 08:43:50 Post-Care Text: The patient is free from signs and symptoms of injury caused by extraneous objects Patient Positioning FT Pre-Care Text: Identifies physical alterations that require additional precautions for procedure-specific positioning, verifies presence of prosthetics or corrective devices, positions the patient, evalu (more content not included)... Normal [facility] Discharge Instructionson Discharge Instructions Discharge Instructions ZACHARY HOBBS :1945 Visit Date:03/27/2024 Inpatient Discharge Instructions Your Care Team Admitting Physician - Irma Martell MD Referring Physician - Irma Martell MD Reason for Your Visit HX OF COLON POLYPS, FAMILY HXL OF COLON CANCER, Your Diagnosis Diverticulosis Hemorrhoids, internal Polyp of transverse colon Rectal polyp Tests Performed Pathology Tissue Exam -- Results Pending -- Please visit your patient portal for your results or contact your primary care physician. This Is Your Medications List Misc Prescription (permanent handicap placard) Non-Formulary Medication (Derrick probiotic and probiotic gummies) Oxygen (Oxygen - for Home) albuterol (Albuterol (Eqv-ProAir HFA) 90 mcg/inh inhalation aerosol) albuterol (albuterol 0.083% Inh Bing 3 mL) aspirin calcium-vitamin D (Calcium 600+D) fluticasone/umeclidi nium/vilanterol (Trelegy Ellipta 100 mcg-62.5 mcg-25 mcg inhalation powder) gabapentin (gabapentin 100 mg Cap) levothyroxine (levothyroxine 50 mcg (0.05 mg) Tab) lorazepam (LORazepam 0.5 mg Tab) melatonin (melatonin 10 mg oral tablet) montelukast (montelukast 10 mg Tab) multivitamin with minerals (Multivitamin, Therapeutic w/ Minerals) ocular lubricant (Refresh Optive) omeprazole (omeprazole 20 mg Cap-DR) pravastatin (pravastatin 80 mg Tab) verapamil (verapamil 40 mg oral tablet) zinc sulfate (Zinc) Procedure History Colonoscopy (03/27/2024), Tongue (12/17/2023), Cystourethroscopy with dilation of urethral stricture (12/20/2019), Colonoscopy (08/26/2015), Cataract, Colonoscopy, gamma knife radiation to L lung, hysterectomy, Lung biopsy sample, Oophorectomy, Tonsillectomy and adenoidectomy. What to do next Instructions From Your Doctor No qualifying data available. Previously Scheduled Follow-Up Appointments Saturday 11:00 AM EST Where: [facility] [place] [address] [place] [address]- New Follow Up Appointments after Discharge Follow Up with Jasbir ELAINE, Irma Galeas, GAS, MED When: Comments: Call for any problems. The office will reach out in about one week from procedure date. Where: Medications What How Much When Why Instructions Next Dose Unchanged albuterol (Albuterol (Eqv-ProAir HFA) 90 mcg/ inh inhalation aerosol) 2 Puffs Inhalation Every 6 hours COPD mixed type Unchanged albuterol (albuterol 0.083% Inh Bing 3 mL) 3 Milliliter Inhalation Every 6 hours as needed for as needed for wheezing Q6H and PRN Unchanged aspirin 81 Milligram By Mouth Every day Unchanged calcium-vitamin D (Calcium 600+D) 1 tab By Mouth Every day Unchanged fluticasone/ umeclidinium/ vilanterol (Trelegy Ellipta 100 mcg-62.5 mcg-25 mcg inhalation powder) 1 Puffs Inhalation Every day Unchanged gabapentin (gabapentin 100 mg Cap) 1 Capsules By Mouth 3 times a day Unchanged levothyroxine (levothyroxine 50 mcg (0.05 mg) Tab) 1 Tablets By Mouth Every day Hypothyroidism Unchanged lorazepam (LORazepam 0.5 mg Tab) 1 Tablets By Mouth Once a day (at bedtime) Insomnia 90 day rx Unchanged melatonin (melatonin 10 mg oral tablet) By Mouth Once a day (at bedtime) Unchanged Misc Prescription (permanent handicap placard) See instructions 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 Unchanged montelukast (montelukast 10 mg Tab) 1 Tablets By Mouth Once a day (in the evening) Asthma, persistent not controlled Unchanged multivitamin with minerals (Multivitamin, Therapeutic w/ Minerals) 1 Tablets By Mouth Every day Unchanged Non-Formulary Medication (Derrick probiotic and probiotic gummies) Unchanged ocular lubricant (Refresh Optive) 1 Drops Both eyes 2 times a day as needed for Dry eyes Unchanged omeprazole (omeprazole 20 mg Cap-DR) 2 Capsules By Mouth Every day GERD (gastroesophageal reflux disease) Unchanged Oxygen (Oxygen - for Home) 2 Liter/minute Nasal Cannula Every day Oxygen - Continuous or Nocturnal Diagnosis: Portable 02 for physician visits, oxygen conservation Unchanged pravastatin (pravastatin 80 mg Tab) 1 Tablets By Mouth Once a day (at bedtime) Unchanged verapamil (verapamil 40 mg oral tablet) 1 Tablets By Mouth 2 times a day Essential hypertension Unchanged zinc sulfate (Zinc) 50 Milligram By Mouth Every day Test Results No qualifying data available. Allergies codeine (Rash) Problems Ongoing - Any problem that you are currently receiving treatment for. Aortic valve sclerosis Arthritis of knee Bradycardia Bruise Cellulitis, leg Centrilobular emphysema Cervical arthritis Chronic low back pain with left-sided sciatica Complete tear of finger ligament Constipation, outlet dysfunction Cough COVID Ear pain Elevated TSH Essential hypertension Eustachian tube dysfunction Family hx of colon cancer Fatigue Former smoker GERD (gastroesophageal reflux disease) H/O: (more content not included)... Normal [facility] Comment on above: Result Comment: Elec tronically Signed By: Maryann Gutiérrez I\.tanja\Date and Time Signed: 03/27/24 09:11 EDT H&P Updateon 03-27-2024 Operative Report Operative Report Patient: ZACHARY HOBBS Age: 78 years Sex: Female : 1945 Associated Diagnoses: None Author: Irma Martell MD Pre-Procedure Procedure Date 03/27/2024 08:57:00 . Procedure Type: Colonoscopy with removal of tumor(s), polyp(s), or other lesion(s) by cold snare technique. Procedure provider Performed by Irma Martell MD. Current history and physical Documented on chart. Tongue ([id number]) on 12/17/2023 at 78 Years. Cystourethroscopy with dilation of urethral stricture (131423910) on 12/20/2019 at 74 Years. Colonoscopy ([id number]) on 08/26/2015 at 69 Years. hysterectomy. gamma knife radiation to L lung. Lung biopsy sample ([id number]). Colonoscopy ([id number]). Comments: 12/17/2018 9:10 EDT - [facility] Roll Over Loader/Dice Manager, Edith A & EGD Tonsillectomy and adenoidectomy (618064034). Oophorectomy (138369206). Cataract (253854998). Comments: 01/18/2022 11:48 EDT - Karina Moran CMA October- right eye November- left eye. Past Medical History Active Nocturnal hypoxia (4335362372) Resolved emphysema (225414879): Resolved. Lung cancer (353516770): Resolved on 04/09/2017 at 71 years. Comments: 04/09/2017 EDT 10:51 EDT - Eileen Hill, PT pt has had gamma knife treatment; Stage I Cervical radiculopathy (702748904): Resolved on 12/17/2018 at 73 years. Panacinar emphysema (2722279): Resolved on 12/17/2018 at 73 years. Malignant neoplasm of upper lobe, left bronchus or lung (776067144): Resolved. Chronic obstructive pulmonary disease with (acute) exacerbation (169346349): Resolved on 12/17/2018 at 73 years. 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 Pulmonary nodule, left (487210574): Resolved on 12/17/2018 at 73 years. JESIKA (obstructive sleep apnea) (888198090): Resolved on 12/17/2018 at 73 years. Hypercholesterolemia (20399716): Resolved on 12/17/2018 at 73 years. Nicotine dependence (24941216): Resolved. Exertional chest pain (873454068): Resolved. Oral thrush (989290975): Resolved. Osteoporosis (077173393): Resolved. Chronic respiratory failure with hypoxia (8323014057): Resolved. Adult BMI 27.0-27.9 kg/sq m (5386753856): Resolved. H/O: lung cancer (8946150983): Resolved. Nocturia (460208363): Resolved. Exposure to chemical irritant (5965890672): Resolved. Plantar fasciitis of right foot (092668882): Resolved. COVID-19 (9656323485): Resolved. Shortness of breath (350810937): Resolved.. Family History Primary malignant neoplasm of colon Sister () Hypertension Father () Mother () Primary malignant neoplasm of lung Mother () Acute myocardial infarction Father () Heart disease Mother () . Procedure History Tongue ([id number]) on 12/17/2023 at 78 Years. Cystourethroscopy with dilation of urethral stricture (207764422) on 12/20/2019 at 74 Years. Colonoscopy ([id number]) on 08/26/2015 at 69 Years. hysterectomy. gamma knife radiation to L lung. Lung biopsy sample (1693670361). Colonoscopy (867156883). Comments: 12/17/2018 9:10 EDT - [facility] Roll Over Loader/Dice ManagerEdith & EGD Tonsillectomy and adenoidectomy (511277037). Oophorectomy (550443622). Cataract (887020391). Comments: 01/18/2022 11:48 EDT - Karina Moran CMA October- right eye November- left eye. Colorectal neoplasm risk assessment High risk Previous history of polyps. . Informed Consent After discussing the rationale, risks and benefits, and alternatives to this procedure, the patient provided signed consent for the procedure. Pre-procedure diagnosis: History of colon polyps. Medications (Selected) Inpatient Medications Ordered Lactated Ringers IV Bing 1000 mL 1,000 mL: 1,000 mL, IV, 100 mL/hr, Routine, Start date 03/27/24 8:02:00 EDT, 10 hour(s), Total volume (mL): 1,000, 66.6 kg, 1.72, m2 Sodium Chloride 0.9% IV Bing 1000 mL 1,000 mL: 1,000 mL, IV, 20 mL/hr, Routine, Start date 03/27/24 6:47:00 EDT, 50 hour(s), Total volume (mL): 1,000, 65.6 kg, 1.7, m2 Prescriptions Prescribed Albuterol (Eqv-ProAir HFA) 90 mcg/inh inhalation aerosol: 2 puff(s), Inhalation, q6hr, 18 gm, Refill(s) 6, [facility], 159, cm, 10/23/23 11:10:00 EDT, Height/Length Dosing, 70.6, kg, 10/23/23 11:10:00 EDT, Weight Dosing LORazepam 0.5 mg Tab: 0.5 mg = 1 tab(s), Oral, Once a day (at bedtime), 90 day rx, # 90 tab(s), Refills(s) 0, Pharmacy: [facility], 159, cm, 12/11/23 16:25:00 EDT, Height/Length Dosing, 69.9, kg, 12/11/23 16:25:00 EDT, Weight Dosing Oxygen - for Home: 2 L/min, Nasal Cannula, Daily, 1 EA, Refill(s) 0, Oxygen - Continuous or Nocturnal Diagnosis: Portable 02 for physician visits, oxygen conservation albuterol 0.083% Inh Bing 3 mL: 2.5 mg, 3 mL, Inhalation, q6hr as needed for wheezing, 180 mL, Refill(s) 11, Q6H and PRN, [facility], 159, cm, 10/23/23 11:10:00 EDT, Height/Length Dosing, 70.6, kg, 10/23/23 11:10:00 EDT, Ephraim (more content not included)... Normal [facility] Comment on above: Result Comment: Elec tronically Signed By: Jasbir ELAINE, Irma Galeas\.br\Date and Time Signed: 03/27/24 09:01 EDT Other Comment: Jen ng Attachment - attachment storage system not supported [id number] Can be viewed in source system Missing Attachment - attachment storage system not supported [id number] Can be viewed in source system Missing Attachment - attachment storage system not supported [id number] Can be viewed in source system Missing Attachment - attachment storage system not supported [id number] Can be viewed in source system Missing Attachment - attachment storage system not supported [id number] Can be viewed in source system Missing Attachment - attachment storage system not supported [id number] Can be viewed in source system Missing Attachment - attachment storage system not supported [id number] Can be viewed in source system H&P Update H&P Update Patient: ZACHARY HOBBS Age: 78 years Sex: Female : 1945 Associated Diagnoses: None Author: Irma Martell MD Pre-Procedure Procedure Date 03/27/2024 08:57:00 . Procedure Type: Colonoscopy with removal of tumor(s), polyp(s), or other lesion(s) by cold snare technique. Procedure provider Performed by Irma Martell MD. Current history and physical Documented on chart. Tongue ([id number]) on 12/17/2023 at 78 Years. Cystourethroscopy with dilation of urethral stricture (429439058) on 12/20/2019 at 74 Years. Colonoscopy (495153411) on 08/26/2015 at 69 Years. hysterectomy. gamma knife radiation to L lung. Lung biopsy sample ([id number]). Colonoscopy (325488775). Comments: 12/17/2018 9:10 EDT - [facility] Roll Over Loader/Dice ManagerEdith & EGD Tonsillectomy and adenoidectomy (494648641). Oophorectomy (097370064). Cataract (558824296). Comments: 01/18/2022 11:48 EDT - Karina Moran CMA October- right eye November- left eye. Past Medical History Active Nocturnal hypoxia (5112645521) Resolved emphysema (171692645): Resolved. Lung cancer (902025026): Resolved on 04/09/2017 at 71 years. Comments: 04/09/2017 EDT 10:51 EDT - Eileen Sergio, PT pt has had gamma knife treatment; Stage I Cervical radiculopathy (416755813): Resolved on 12/17/2018 at 73 years. Panacinar emphysema (1885602): Resolved on 12/17/2018 at 73 years. Malignant neoplasm of upper lobe, left bronchus or lung (031823776): Resolved. Chronic obstructive pulmonary disease with (acute) exacerbation (989496152): Resolved on 12/17/2018 at 73 years. Aneurysm of internal carotid artery (51598448): Resolved on 12/17/2018 at 73 years. Pulmonary nodule, left (562741228): Resolved on 12/17/2018 at 73 years. JESIKA (obstructive sleep apnea) (318504722): Resolved on 12/17/2018 at 73 years. Hypercholesterolemia (83910788): Resolved on 12/17/2018 at 73 years. Nicotine dependence (53723387): Resolved. Exertional chest pain (887378547): Resolved. Oral thrush (167168118): Resolved. Osteoporosis (899638502): Resolved. Chronic respiratory failure with hypoxia (4180315119): Resolved. Adult BMI 27.0-27.9 kg/sq m (1877199374): Resolved. H/O: lung cancer (4332840621): Resolved. Nocturia (159527992): Resolved. Exposure to chemical irritant (8918773623): Resolved. Plantar fasciitis of right foot (633045548): Resolved. COVID-19 (5582068075): Resolved. Shortness of breath (866434332): Resolved.. Family History Primary malignant neoplasm of colon Sister () Hypertension Father () Mother () Primary malignant neoplasm of lung Mother () Acute myocardial infarction Father () Heart disease Mother () . Procedure History Tongue (81364004) on 12/17/2023 at 78 Years. Cystourethroscopy with dilation of urethral stricture (681259175) on 12/20/2019 at 74 Years. Colonoscopy (740952054) on 08/26/2015 at 69 Years. hysterectomy. gamma knife radiation to L lung. Lung biopsy sample (5336083375). Colonoscopy (911780914). Comments: 12/17/2018 9:10 [facility] Roll Over Loader/Dice Manager, Edith Neal & QUENTIN Tonsillectomy and adenoidectomy (059822671). Oophorectomy (776697274). Cataract (396246925). Comments: 01/18/2022 11:48 EDT - Karina Moran CMA October- right eye November- left eye. Colorectal neoplasm risk assessment High risk Previous history of polyps. . Informed Consent After discussing the rationale, risks and benefits, and alternatives to this procedure, the patient provided signed consent for the procedure. Pre-procedure diagnosis: History of colon polyps. Medications (Selected) Inpatient Medications Ordered Lactated Ringers IV Bing 1000 mL 1,000 mL: 1,000 mL, IV, 100 mL/hr, Routine, Start date 03/27/24 8:02:00 EDT, 10 hour(s), Total volume (mL): 1,000, 66.6 kg, 1.72, m2 Sodium Chloride 0.9% IV Bing 1000 mL 1,000 mL: 1,000 mL, IV, 20 mL/hr, Routine, Start date 03/27/24 6:47:00 EDT, 50 hour(s), Total volume (mL): 1,000, 65.6 kg, 1.7, m2 Prescriptions Prescribed Albuterol (Eqv-ProAir HFA) 90 mcg/inh inhalation aerosol: 2 puff(s), Inhalation, q6hr, 18 gm, Refill(s) 6, [facility], 159, cm, 10/23/23 11:10:00 EDT, Height/Length Dosing, 70.6, kg, 10/23/23 11:10:00 EDT, Weight Dosing LORazepam 0.5 mg Tab: 0.5 mg = 1 tab(s), Oral, Once a day (at bedtime), 90 day rx, # 90 tab(s), Refills(s) 0, Pharmacy: [facility] 1985, 159, cm, 12/11/23 16:25:00 EDT, Height/Length Dosing, 69.9, kg, 12/11/23 16:25:00 EDT, Weight Dosing Oxygen - for Home: 2 L/min, Nasal Cannula, Daily, 1 EA, Refill(s) 0, Oxygen - Continuous or Nocturnal Diagnosis: Portable 02 for physician visits, oxygen conservation albuterol 0.083% Inh Ibng 3 mL: 2.5 mg, 3 mL, Inhalation, q6hr as needed for wheezing, 180 mL, Refill(s) 11, Q6H and PRN, [facility], 159, cm, 10/23/23 11:10:00 EDT, Height/Length Dosing, 70.6, kg, 10/23/23 11:10:00 EDT, Weight Dos (more content not included)... Normal [facility] Comment on above: Other Comment: Jen champion Attachment - attachment storage system not supported [id number] Can be viewed in source system Missing Attachment - attachment storage system not supported [id number] Can be viewed in source system Missing Attachment - attachment storage system not supported [id number] Can be viewed in source system Missing Attachment - attachment storage system not supported [id number] Can be viewed in source system Missing Attachment - attachment storage system not supported [id number] Can be viewed in source system Missing Attachment - attachment storage system not supported [id number] Can be viewed in source system Missing Attachment - attachment storage system not supported [id number] Can be viewed in source system H&P Update H&P Update Patient: ZACHARY HOBBS Age: 78 years Sex: Female : 1945 Associated Diagnoses: None Author: Jasbir ELAINE, Irma Galeas Preoperative Information Chief compliant/Indication for procedure: History of colon polyps Chief Complaint as above Review of Systems All systems reviewed, negative except as mentioned above Physical Examination Vital Signs (last 24 hrs) Last Charted Temp Temporal 36.8 DegC (MAR 27:46) Heart Rate Monitored 86 bpm (MAR 27:46) Resp Rate 10 br/min (MAR 27:) SBP H 148 mmHg (MAR 27:46) DBP 67 mmHg (MAR 27:) Weight 66.6 kg (MAR 27 07:40) BMI 26.34 (MAR 27:40) General: in Nad Abdomen: Soft, NTND Impression and Plan Diagnosis: History of colon polyps colonoscopy Normal [facility] Main OR PACU I Recordon 03-09 Main OR PACU I Record Main OR PACU I Record PACU Phase I Document Type FT Summary Primary Physician: Irma Martell MD Finalized Date/Time: 03/27/24 09:54:42 Pt. Name: ZACHARY HOBBS /Sex: 1945 Female Med Rec #: [id number] Physician: Irma Martell MD Financial #: [id number] Pt. Type: O Room/Bed: / Admit/Disch: 03/27/24 07:06:46 - Institution: Case Times PACU I FT Pre-Care Text: Identifies barriers to communication and implements measures to provide psychological support Develops individualized plan of care, and ensures continuity of care Maintains patient's dignity and privacy, and maintains patient confidentiality Identifies and reports philosophical, cultural, and spiritual beliefs and values Identifies individual values and wishes concerning care Implements aseptic technique, and administers prescribed antibiotic therapy and immunizing agents as ordered Evaluates postoperative tissue perfusion Implements thermoregulation measures, and monitors body temperature Evaluates postoperative respiratory status Evaluates postoperative cardiac status Evaluates postoperative neurological status Assesses pain control, collaborated in initiating patient-controlled analgesia and implements alternative methods of pain control Verifies allergies, administers prescribed medications and solutions, evaluates response to medications Entry 1 In PACU I 03/27/24 09:01:00 Discharge from PACU 03/27/24 09:31:00 I Outcomes Met? Yes Last Modified By: Maryann Gutiérrez I 03/27/24 09:54:25 Post-Care Text: The patient demonstrates knowledge of the expected response to the operative or invasive procedure The patient's care is consistent with the individualized perioperative plan of care The patient's right to privacy is maintained The patient's value system, lifestyle, ethnicity, and culture are considered, respected, and incorporated into the perioperative plan of care The patient participates in decisions affecting his or her perioperative plan of care The patient is free from signs and symptoms of infection The patient has wound/tissue perfusion consistent with or improved from baseline levels established preoperatively The patient is at or returning to normothermia at the conclusion of the immediate postoperative period The patient's respiratory function is consistent with or improved from baseline levels established preoperatively The patient's cardiovascular status is consistent with or improved from baseline levels established preoperatively The patient's cardiovascular status is consistent with or improved from baseline levels established preoperatively The patient demonstrates and/or reports adequate pain control throughout the perioperative period The patient received appropriate medication(s), safely administered during the perioperative period Acuity Level PACU I FT Entry 1 Start Time 03/27/24 09:01:00 Stop Time 03/27/24 09:31:00 Acuity Level Acuity Level I Last Modified By: Maryann Gutiérrez I 03/27/24 09:54:37 Finalized By: Maryann Gutiérrez I Document Signatures Signed By: Maryann Gutiérrez I 03/27/24 09:[address] [facility] Main OR Preoperative Recordo n 03-27-2024 Main OR Preoperative Record Main OR Preoperative Record Holding Area Document Type FT Summary Primary Physician: Irma Martell MD Finalized Date/Time: 03/27/24 07:45:20 Pt. Name: FABY ZACHARYKIANA Loaiza/Sex: 1945 Female Med Rec #: [id number] Physician: Irma Martell MD Financial #: [id number] Pt. Type: O Room/Bed: / Admit/Disch: 03/27/24 07:06:46 - Institution: Case Times Holding FT Pre-Care Text: Verifies consent for planned procedure, identifies individual values and wishes concerning care, includes family members in perioperative teaching Secures patient's records' belongings, and valuables, maintains patient's dignity and privacy, and maintains patient confidentiality Entry 1 In Holding 03/27/24 07:25:00 Outcomes Met? Yes Last Modified By: Alejandra Connell RN 03/27/24 07:44:34 Post-Care Text: The patient participates in decisions affecting his or her perioperative plan of care The patient's right to privacy is maintained Surgery Checklist FT Entry 1 Patient Birthday, ID Band Procedure History and Physical, Identification: Check, Patient Verification: Surgical Consent, With Participation Patient NPO after Midnight: No Date/Time: 03/27/24 02:45:00 Personal Items: Glasses Personal Items clothes Comment: Limitations: no Complaints of Pain: No Pain Comment: no Operative Site n/a Marking: Marked By: n/a Availability Equipment Verified: Does Patient Smoke No Patient states Yes Comment - Adult Daughter postop adult Supervision supervision available Case Cancelled in No Holding Area see comments below for reason Last Modified By: Alejandra Connell RN 03/27/24 07:45:10 Finalized By: Alejandra Connell RN Document Signatures Signed By: Alejandra Connell RN 03/27/24 07:[address] [facility] Pulmonology Office/Clinic No ashu 03-25-2024 Pulmonology Office/Clinic Note Pulmonology Office/Clinic Note Chief Complaint 4 week f/u History of Present Illness Since her last visit she underwent CT chest PE. Called for chest pain and shows the left upper lobe lung mass with second rib destructive changes and osteolytic changes. Her previous CT chest are done in the [facility]. She is still complaining of pain in the left chest worse with movement Review of Systems PHQ Score Initial Depression Screen Score: 0 SCORE 12 point system review was done and negative except what mentioned in HPI Physical Exam Vitals & Measurements HR: 75(Peripheral) BP: 138/78 SpO2: 94% HT: 63 in HT: 159 cm WT: 65.6 kg WT: 144.32 lb BMI: 25.95 General: no distress Skin: warm? , dry? Head: no? trauma, normocephalic? Neck: Trachea midline? , no? adenopathy, no? tenderness Eye: normal? conjunctiva, sclera clear? ENMT: oral mucosa moist? Cardiovascular: regular? rate and rhythm, normal? Respiratory: Lungs CTA? ,respirations non labored? Chest wall: no? deformity. Gastrointestinal: soft? , non distended? , no? tenderness, no? guarding. Extremities: no? deformity, no? trauma Neurological: nonfocal Assessment/Plan 1. Lung cancer (C34.90: Malignant neoplasm of unspecified part of unspecified bronchus or lung) Her lung cancer was diagnosed in 2017 and she received radiation, the current changes on CT chest could be postradiation and chronic but recurrence is not completely excluded specially that she is complaining of more pain which could be neuropathy. I we will order PET scan to evaluate further and I discussed with her to talk to her oncologist at [facility] about these findings. PET scan can either be done at [facility] or [facility] Ordered: NM PET w/ CT Scan Skull Base to Midthigh 2. Chest pain (R07.9: Chest pain, unspecified) Ordered: NM PET w/ CT Scan Skull Base to Midthigh 3. 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 disease, unspecified) CT chest with diffuse emphysema continue bronchodilators Follow-up No qualifying data available After PET scan Problem List/Past Medical History Ongoing Aortic valve sclerosis Arthritis of knee Bradycardia Bruise Cellulitis, leg Centrilobular emphysema Cervical arthritis Chronic low back pain with left-sided sciatica Complete tear of finger ligament Constipation, outlet dysfunction Cough COVID Ear pain Elevated TSH Essential hypertension Eustachian tube dysfunction Family hx of colon cancer Fatigue Former smoker GERD (gastroesophageal reflux disease) H/O: hysterectomy Hyperlipidemia Incomplete bladder emptying Insomnia Knee pain Moderate asthma Moderate COPD (chronic obstructive pulmonary disease) Neck pain Neuropathy of finger Nocturnal hypoxia Osteopenia Otitis externa Palpitations Pelvic floor dysfunction Personal history of COVID-19 Pollen allergy Poor posture Preoperative clearance Rib pain Somatic dysfunction of cervical region Somatic dysfunction of head region Somatic dysfunction of lower extremities Somatic dysfunction of lumbar region Somatic dysfunction of sacral spine Somatic dysfunction of thoracic region Somatic dysfunction of upper extremities Spasm of lumbar paraspinous muscle Stress incontinence Tongue lesion Trapezius muscle spasm Urethral stricture Urinary frequency Weak urinary stream Historical Adult BMI 27.0-27.9 kg/sq m Aneurysm of internal carotid artery Cervical radiculopathy Chronic obstructive pulmonary disease with (acute) exacerbation Chronic respiratory failure with hypoxia COVID-19 emphysema Exertional chest pain Exposure to chemical irritant H/O: lung cancer Hypercholesterolemia Lung cancer Malignant neoplasm of upper lobe, left bronchus or lung Nicotine dependence Nocturia Oral thrush JESIKA (obstructive sleep apnea) Osteoporosis Panacinar emphysema Plantar fasciitis of right foot Pulmonary nodule, left Shortness of breath Procedure/Surgical History Tongue (12/17/2023), Cystourethroscopy with dilation of urethral stricture (12/20/2019), Colonoscopy (08/26/2015), Cataract, Colonoscopy, gamma knife radiation to L lung, hysterectomy, Lung biopsy sample, Oophorectomy, Tonsillectomy and adenoidectomy. Medications Albuterol (Eqv-ProAir HFA) 90 mcg/inh inhalation aerosol, 2 puff(s), Inhalation, q6hr, 6 refills albuterol 0.083% Inh Bing 3 mL, 2.5 mg= 3 mL, Inhalation, q6hr, PRN, 11 refills aspirin, 81 mg, Oral, Daily Calcium 600+D, 1 tab, Oral, Daily gabapentin 100 mg Cap, 100 mg= 1 cap(s), Oral, TID levothyroxine 50 mcg (0.05 mg) Tab, 50 mcg= 1 tab(s), Oral, Daily, 4 refills LORazepam 0.5 mg Tab, 0.5 mg= 1 tab(s), Oral, Once a day (at bedtime) melatonin 10 mg oral tablet, Oral, Once a day (at bedtime) montelukast 10 mg Tab, 10 mg= 1 tab(s), Oral, qPM, 4 refills Multivitamin, Therapeutic w/ Minerals, 1 tab(s), Oral, Daily Derrick probiotic and probiotic gummies o (more content not included)... Normal [facility] CTA Cheston 02-28-2024 CTA Chest Exam Date/Time: 02/28/2024 16:49 EDT Reason for Exam: R07.0;Pulmonary Emboli (PE) Report IMPRESSION: NO CT EVIDENCE PULMONARY EMBOLISM. 2.5 X 3.2 CM LEFT APICAL MASS IN PATIENT WITH CLINICAL HISTORY OF RADIATION TREATED LUNG CANCER. OSTEOLYTIC CHANGE, LEFT SECOND RIB, IN PATIENT WITH CLINICAL HISTORY OF LEFT SECOND RIB CHANGES FOLLOWING RADIATION THERAPY. IF RECURRENCE IS OF CLINICAL CONCERN, PET CT MAY BE HELPFUL FOR FURTHER EVALUATION. COMPLEX, CALCIFIED CYST AND NODULE, RIGHT KIDNEY DISCUSSED. IF CLINICAL CONCERN WARRANTS, UROGRAM MAY BE OBTAINED FOR FURTHER EVALUATION TO RULE OUT MALIGNANCY. CTA CHEST WITH INTRAVENOUS CONTRAST MEDIUM. COMPARISON: NONE AVAILABLE REASON FOR EXAMINATION: LEFT CHEST PAIN. HISTORY OF LUNG CANCER WITH RADIATION TREATMENT, EMPHYSEMA., AORTIC VALVE SCLEROSIS, LEFT CAROTID ANEURYSM. HISTORY OF LEFT SECOND RIB CHANGES FOLLOWING RADIATION THERAPY. TECHNIQUE: Helical CTA was performed through the chest utilizing 75 mL of Isovue 370 intravenous contrast. Images were obtained with bolus tracking in order to opacify the pulmonary arteries. Thick section coronal MIP 3D reconstructions were performed on a separate workstation. FINDINGS: Pulmonary arteries: No intraluminal filling defect, pulmonary to tree. Cardiac: Size normal. No pericardial effusion. No coronary artery calcification. Aorta: Normal in course and caliber. Lungs: Diffuse bilateral emphysema. Pleural-based, spiculated, noncalcified, 2.5 x 3.2 cm lateral left apical mass. Right basilar dependent subsegmental atelectatic change. Lymph nodes: No hilar, mediastinal, or axillary lymph node enlargement. Musculoskeletal: Left apical mass extends into left chest wall, with osteolytic change and destruction, left lateral second rib. Upper abdomen: 2.3 x 1.5 cm cortical cyst mid pole right kidney, with exophytic 5 x 7 mm partially calcified nodule. Small to moderate hiatal hernia. 4 mm cystic area anterior dome right liver. Report All CT scans at this facility use dose modulation, iterative reconstruction, and/or weight based dosing when appropriate to reduce radiation dose to as low as reasonably achievable. Ordering Provider: David Mena FINAL REPORT Dictated: 02/28/2024 5:03 pm Aaron Briscoe MD Signed (Electronic Signature): 02/28/2024 5:03 pm Signed by: Aaron Briscoe MD Transcribed by: OLGA Technologist: MARIA E Technical Comments GFR (mL/min/1/73m2) 76 Contrast: Isovue 370 Contrast amount in ml's: [address] [facility] Creatinineon 02-28-2024 Creatinine [Mass/Vol] 0.8 mg/dL Normal 0.5-1.3 [facility] Comment on above: Performed By: #### [id number] #### [facility] [address] [place] [address] eGFRon 02-28-2024 eGFR 76 mL/min/1.73 m2 Normal >=59 [facility] Comment on above: Order Comment: Order added by Discern Expert. Performed By: #### 1 [id number] #### [facility] [address] [place] [address] Ambulatory Visit Summaryon 0 02-21-2024 Ambulatory Visit Summary Ambulatory Visit Summary ZACHARY HOBBS :1945 Visit Date:02/21/2024 Ambulatory Visit Instructions Your Diagnosis History of colon polyps Constipation, outlet dysfunction Pelvic floor dysfunction H/O: hysterectomy Family hx of colon cancer Your Care Team Attending Physician - Jasbir ELAINE, Irma Galeas Primary Care Physician - Jeff De La Vega DO This Is Your Medications List Contact prescribing physician if questions or concerns Misc Prescription (permanent handicap placard) Non-Formulary Medication (Derrick probiotic and probiotic gummies) Oxygen (Oxygen - for Home) albuterol (Albuterol (Eqv-ProAir HFA) 90 mcg/inh inhalation aerosol) albuterol (albuterol 0.083% Inh Bing 3 mL) aspirin calcium-vitamin D (Calcium 600+D) fluticasone/umeclidi nium/vilanterol (Trelegy Ellipta 100 mcg-62.5 mcg-25 mcg inhalation powder) gabapentin (gabapentin 100 mg Cap) levothyroxine (levothyroxine 50 mcg (0.05 mg) Tab) lorazepam (LORazepam 0.5 mg Tab) melatonin (melatonin 10 mg oral tablet) montelukast (montelukast 10 mg Tab) multivitamin with minerals (Multivitamin, Therapeutic w/ Minerals) ocular lubricant (Refresh Optive) omeprazole (omeprazole 20 mg Cap-DR) pravastatin (pravastatin 80 mg Tab) verapamil (verapamil 40 mg oral tablet) zinc sulfate (Zinc) Procedures Performed Tongue (12/17/2023), Cystourethroscopy with dilation of urethral stricture (12/20/2019), Colonoscopy (08/26/2015), Cataract, Colonoscopy, gamma knife radiation to L lung, hysterectomy, Lung biopsy sample, Oophorectomy, Tonsillectomy and adenoidectomy. Discharge Vitals Heart Rate (Peripheral) 74 Respiratory Rate 16 Blood Pressure 133/68 Height 159 cm Height 63 in Weight 66.6 kg Weight 146.52 lb BMI 26.34 What to do next Scheduled Follow-Up Appointments Saturday 9:00 AM EDT With: Rajesh ELAINE, David Mari Where: [facility] Saturday 11:00 AM EST With: Where: [place] [address] [place] [address]- Medications What How Much When Why Instructions Unchanged albuterol (Albuterol (Eqv-ProAir HFA) 90 mcg/ inh inhalation aerosol) 2 Puffs Inhalation Every 6 hours COPD mixed type Contact prescribing physician if questions or concerns Unchanged albuterol (albuterol 0.083% Inh Bing 3 mL) 3 Milliliter Inhalation Every 6 hours as needed for as needed for wheezing Q6H and PRN Contact prescribing physician if questions or concerns Unchanged aspirin 81 Milligram By Mouth Every day Contact prescribing physician if questions or concerns Unchanged calcium-vitamin D (Calcium 600+D) 1 tab By Mouth Every day Contact prescribing physician if questions or concerns Unchanged fluticasone/ umeclidinium/ vilanterol (Trelegy Ellipta 100 mcg-62.5 mcg-25 mcg inhalation powder) 1 Puffs Inhalation Every day Contact prescribing physician if questions or concerns Unchanged gabapentin (gabapentin 100 mg Cap) 1 Capsules By Mouth 3 times a day Contact prescribing physician if questions or concerns Unchanged levothyroxine (levothyroxine 50 mcg (0.05 mg) Tab) 1 Tablets By Mouth Every day Hypothyroidism Contact prescribing physician if questions or concerns Unchanged lorazepam (LORazepam 0.5 mg Tab) 1 Tablets By Mouth Once a day (at bedtime) Insomnia 90 day rx Contact prescribing physician if questions or concerns Unchanged melatonin (melatonin 10 mg oral tablet) By Mouth Once a day (at bedtime) Contact prescribing physician if questions or concerns Unchanged Misc Prescription (permanent handicap placard) See instructions 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 Contact prescribing physician if questions or concerns Unchanged montelukast (montelukast 10 mg Tab) 1 Tablets By Mouth Once a day (in the evening) Asthma, persistent not controlled Contact prescribing physician if questions or concerns Unchanged multivitamin with minerals (Multivitamin, Therapeutic w/ Minerals) 1 Tablets By Mouth Every day Contact prescribing physician if questions or concerns Unchanged Non-Formulary Medication (Derrick probiotic and probiotic gummies) Contact prescribing physician if questions or concerns Unchanged ocular lubricant (Refresh Optive) 1 Drops Both eyes 2 times a day as needed for Dry eyes Contact prescribing physician if questions or concerns Unchanged omeprazole (omeprazole 20 mg Cap-DR) 2 Capsules By Mouth Every day GERD (gastroesophageal reflux disease) Contact prescribing physician if questions or concerns Unchanged Oxygen (Oxygen - for Home) 2 Liter/minute Nasal Cannula Every day Oxygen - Continuous or Nocturnal Diagnosis: Portable 02 for physician visits, oxygen conservation Contact prescribing physician if questions or concerns Unchanged pravastatin (pravastatin 80 mg Tab) 1 Tablets By Mouth Once a day (at bedtime) Contact prescribing physician if questions or concerns (more content not included)... Normal [facility] Gastroenterology Office/Clin ic Noteon 02-21-2024 Gastroenterology Office/Clinic Note Gastroenterology Office/Clinic Note Chief Complaint 5 year colon recall HPI Staff This is a 78 year old female who presents today for a 5 year colon recall. she does have some constipation, last night she she had severe diarrhea and she does throw up when she has these episodes. fhx of colon ca - sister dx around age 50s. Denies abdominal pain, diarrhea, bloody stools. Colonoscopy w/ Dr Arteaga 10/09/18 Impression and Plan Moderate diverticular disease in the sigmoid and descending colon Small nonbleeding internal hemorrhoids, otherwise normal colonoscopy. Recommendations: Repeat colonoscopy:: In 5 years. EGD w/ Dr Arteaga 08/26/15 IMPRESSION: 1. Small hiatal hernia 2. Nodule at the incisura, biopsied 3. Multiple clean-based antral ulcers, biopsied Final Diagnosis (Verified) A: ANTRAL ULCER, BIOPSY: ? ANTRAL MUCOSA WITH MILD CHRONIC GASTRITIS AND REGENERATIVE REACTIVE CHANGES. B: NODULE, LESSER CURVATURE OF STOMACH, BIOPSY: ? GASTRIC MUCOSA WITH MILD CHRONIC GASTRITIS AND REGENERATIVE CHANGES. C: POLYP, SIGMOID COLON, POLYPECTOMY: ? TUBULOVILLOUS ADENOMA. D: POLYP, RECTUM, POLYPECTOMY: ? HYPERPLASTIC POLYP. History of Present Illness I have reviewed HPI staff note, most recent labs and imaging, more than 30 minutes spent reviewing the chart, during encounter, placing orders and counseling the patient. pt with family hx of colon cancer in sister pt with flares of gurgling and vomiting that could happen every 6 months pt with straining and she has incomplete evacuation constipation x 2 months no stress hx of hysterectomy pt tried colace since December and probiotics Review of Systems PHQ Score Initial Depression Screen Score: 0 SCORE All systems reviewed, negative except as mentioned above Physical Exam Vitals & Measurements HR: 74(Peripheral) RR: 16 BP: 133/68 HT: 63 in HT: 159 cm WT: 66.6 kg WT: 146.52 lb BMI: 26.34 General: alert, no acute distress HEENT: atraumatic normocephalic Cardiovascular: regular rate and rhythm, normal peripheral perfusion Respiratory: Lungs CTA, respirations non labored Extremities: no deformity, no trauma Abdomen: Benign, soft, tender nondistended Assessment/Plan 1. History of colon polyps (Z86.010: Personal history of colonic polyps) Ordered: Colonoscopy (Hospital Procedure) 2. Constipation, outlet dysfunction (K59.02: Outlet dysfunction constipation) Ordered: Colonoscopy (Hospital Procedure) 3. Pelvic floor dysfunction (M62.89: Other specified disorders of muscle) Ordered: Colonoscopy (Hospital Procedure) 4. H/O: hysterectomy (Z90.710: Acquired absence of both cervix and uterus) Ordered: Colonoscopy (Hospital Procedure) 5. Family hx of colon cancer (Z80.0: Family history of malignant neoplasm of digestive organs) Ordered: Colonoscopy (Hospital Procedure) Advised to get squatty potty massage the colon Advised to use senna/MiraLAX and titrate to have 1-2 bowel movements a day Advised to consume prunes and kiwi fruits Offered pelvic floor therapy but the patient wants to defer for now Schedule colonoscopy given family history of colon cancer and history of colon polyps Follow-up No qualifying data available Problem List/Past Medical History Ongoing Aortic valve sclerosis Arthritis of knee Bradycardia Bruise Cellulitis, leg Centrilobular emphysema Cervical arthritis Chronic low back pain with left-sided sciatica Complete tear of finger ligament Constipation, outlet dysfunction Cough COVID Ear pain Elevated TSH Essential hypertension Eustachian tube dysfunction Family hx of colon cancer Fatigue Former smoker GERD (gastroesophageal reflux disease) H/O: hysterectomy Hyperlipidemia Incomplete bladder emptying Insomnia Knee pain Moderate asthma Moderate COPD (chronic obstructive pulmonary disease) Neck pain Neuropathy of finger Nocturnal hypoxia Osteopenia Otitis externa Palpitations Pelvic floor dysfunction Personal history of COVID-19 Pollen allergy Poor posture Preoperative clearance Rib pain Somatic dysfunction of cervical region Somatic dysfunction of head region Somatic dysfunction of lower extremities Somatic dysfunction of lumbar region Somatic dysfunction of sacral spine Somatic dysfunction of thoracic region Somatic dysfunction of upper extremities Spasm of lumbar paraspinous muscle Stress incontinence Tongue lesion Trapezius muscle spasm Urethral stricture Urinary frequency Weak urinary stream Historical Adult BMI 27.0-27.9 kg/sq m Aneurysm of internal carotid artery Cervical radiculopathy Chronic obstructive pulmonary disease with (acute) exacerbation Chronic respiratory failure with hypoxia COVID-19 emphysema Exertional chest pain Exposure to chemical irritant H/O: lung cancer Hypercholesterolemia Lung cancer Malignant neoplasm of upper lobe, left bronchus or lung Nicotine dependence No (more content not included)... Normal [facility] Comment on above: Result Comment: Elec tronically Signed By: Jasbir ELAINE, Irma Galeas\.br\Date and Time Signed: 02/21/24 08:52 EDT Pulmonology Office/Clinic No ashu 02-17-2024 Pulmonology Office/Clinic Note Pulmonology Office/Clinic Note Chief Complaint 1 YEAR History of Present Illness This is 78-year-old female she is here for follow-up for COPD, she has been complaining of pain in the left chest radiates around to the back. She had this pain for a while since her radiation treatment for lung cancer and was told it is related to nerve damage and was prescribed Neurontin but over last 3 months it is more frequent. She had a pulmonary function test with moderate obstructive lung disease and significant response to bronchodilator she is on Trelegy inhaler, albuterol, nebulizer treatment. Her respiratory symptoms are fairly stable. She uses oxygen at nighttime and she is compliant with it, benefiting from it and needs to continue Review of Systems PHQ Score Initial Depression Screen Score: 0 SCORE 12 point system review was done and negative except what mentioned in HPI Physical Exam Vitals & Measurements HR: 71(Peripheral) BP: 160/82 SpO2: 94% HT: 63 in HT: 159 cm WT: 67.6 kg WT: 148.72 lb BMI: 26.74 General: no distress Skin: warm? , dry? Head: no? trauma, normocephalic? Neck: Trachea midline? , no? adenopathy, no? tenderness Eye: normal? conjunctiva, sclera clear? ENMT: oral mucosa moist? Cardiovascular: regular? rate and rhythm, normal? Respiratory: Lungs CTA? ,respirations non labored? Chest wall: no? deformity. Gastrointestinal: soft? , non distended? , no? tenderness, no? guarding. Extremities: no? deformity, no? trauma Neurological: nonfocal Assessment/Plan 1. Chest pain (R07.9: Chest pain, unspecified) I will obtain CT chest with angiogram to rule out pulmonary embolism rule out any recurrence of malignancy. I would suspect that the pain it is more muscular she had it before but somewhat worse lately and she could get back on Neurontin and use it more frequent Ordered: CTA Chest 2. Lung cancer (C34.90: Malignant neoplasm of unspecified part of unspecified bronchus or lung) Status postradiation in 2017 and followed at [facility] 3. 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 disease, unspecified) Continue bronchodilators Follow-up No qualifying data available 4 weeks Problem List/Past Medical History Ongoing Aortic valve sclerosis Arthritis of knee Bradycardia Bruise Cellulitis, leg Centrilobular emphysema Cervical arthritis Chronic low back pain with left-sided sciatica Complete tear of finger ligament Cough COVID Ear pain Elevated TSH Essential hypertension Eustachian tube dysfunction Fatigue Former smoker GERD (gastroesophageal reflux disease) Hyperlipidemia Incomplete bladder emptying Insomnia Knee pain Moderate asthma Moderate COPD (chronic obstructive pulmonary disease) Neck pain Neuropathy of finger Nocturnal hypoxia Osteopenia Otitis externa Palpitations Personal history of COVID-19 Pollen allergy Poor posture Preoperative clearance Rib pain Somatic dysfunction of cervical region Somatic dysfunction of head region Somatic dysfunction of lower extremities Somatic dysfunction of lumbar region Somatic dysfunction of sacral spine Somatic dysfunction of thoracic region Somatic dysfunction of upper extremities Spasm of lumbar paraspinous muscle Stress incontinence Tongue lesion Trapezius muscle spasm Urethral stricture Urinary frequency Weak urinary stream Historical Adult BMI 27.0-27.9 kg/sq m Aneurysm of internal carotid artery Cervical radiculopathy Chronic obstructive pulmonary disease with (acute) exacerbation Chronic respiratory failure with hypoxia COVID-19 emphysema Exertional chest pain Exposure to chemical irritant H/O: lung cancer Hypercholesterolemia Lung cancer Malignant neoplasm of upper lobe, left bronchus or lung Nicotine dependence Nocturia Oral thrush JESIKA (obstructive sleep apnea) Osteoporosis Panacinar emphysema Plantar fasciitis of right foot Pulmonary nodule, left Shortness of breath Procedure/Surgical History Cystourethroscopy with dilation of urethral stricture (12/20/2019), Colonoscopy (08/26/2015), Cataract, Colonoscopy, gamma knife radiation to L lung, hysterectomy, Lung biopsy sample, Oophorectomy, Tonsillectomy and adenoidectomy. Medications Albuterol (Eqv-ProAir HFA) 90 mcg/inh inhalation aerosol, 2 puff(s), Inhalation, q6hr, 6 refills albuterol 0.083% Inh Bing 3 mL, 2.5 mg= 3 mL, Inhalation, q6hr, PRN, 11 refills aspirin, 81 mg, Oral, Daily Calcium 600+D, 1 tab, Oral, Daily gabapentin 100 mg Cap, 100 mg= 1 cap(s), Oral, TID levothyroxine 50 mcg (0.05 mg) Tab, 50 mcg= 1 tab(s), Oral, Daily, 4 refills LORazepam 0.5 mg Tab, 0.5 mg= 1 tab(s), Oral, Once a day (at bedtime) melatonin 10 mg oral tablet, Oral, Once a day (at bedtime) montelukast 10 mg Tab, 10 mg= 1 tab(s), Oral, qPM, 4 refills Multivitamin, Therapeutic w/ Minerals, 1 tab(s), Oral, Daily omeprazole 20 mg Cap-DR, 40 mg= 2 cap(s), Oral, Daily Oxygen - f (more content not included)... Normal [facility] Pulmonary Function Studieson 02-10-2024 Pulmonary Function Studies Pulmonary Function Studies PULMONARY FUNCTION TEST: 02/07/2024 REFERRING PHYSICIAN: Jeff De La Vega D.O.; David Mena M.D. REASON FOR TESTING: This is a 78-year-old female former smoker one to two packs a day for 40 years and work exposure to second-hand smoking. Pulmonary function test is performed to evaluate for chronic obstructive pulmonary disease. Spirometry shows reduced FEV1 at 67% predicted. Forced vital capacity is normal at 91% predicted. FEV1/forced vital capacity ratio is reduced at 56%. After administration of bronchodilator there is improvement in FEV1 by 16%. Lung volume testing shows normal total lung capacity at 111% predicted. Residual volume is increased at 135% predicted. RV/total lung capacity ratio is increased at 55%. The lung diffusion capacity is reduced at 40% predicted and does not correct to alveolar volume. In comparison to prior testing on 04/05/2022, there is mild improvement in FEV1. IMPRESSION: There is mild to moderate obstructive lung disease. There is significant response to bronchodilators. Lung volume testing shows air trapping. The lung diffusion capacity is reduced. READ BY: David Mena M.D. ca Dictated: 02/09/2024 [id number] Transcribed: 02/10/2024 cc:Jeff De La Vega D.O. [facility] Comment on above: Result Comment: Elec tronically Signed By: David Mena MD\.br\Date and Time Signed: 02/10/24 15:30 EDT Ambulatory Visit Summaryon 0 01-17-2024 Ambulatory Visit Summary Ambulatory Visit Summary FABYZACHARY Stephy :1945 Visit Date:01/17/2024 Ambulatory Visit Instructions Your Diagnosis Cellulitis, leg Bruise Tongue lesion Adult BMI 27.0-27.9 kg/sq m Your Care Team Attending Physician - Jeff De La Vega DO Primary Care Physician - Jeff DeL a Vega DO This Is Your Medications List cephalexin (cephalexin 500 mg Cap) Contact prescribing physician if questions or concerns Misc Prescription (permanent handicap placard) Oxygen (Oxygen - for Home) albuterol (Albuterol (Eqv-ProAir HFA) 90 mcg/inh inhalation aerosol) albuterol (albuterol 0.083% Inh Bing 3 mL) aspirin calcium-vitamin D (Calcium 600+D) fluticasone/umeclidi nium/vilanterol (Trelegy Ellipta 100 mcg-62.5 mcg-25 mcg inhalation powder) gabapentin (gabapentin 100 mg Cap) levothyroxine (levothyroxine 50 mcg (0.05 mg) Tab) lorazepam (LORazepam 0.5 mg Tab) melatonin (melatonin 10 mg oral tablet) montelukast (montelukast 10 mg Tab) multivitamin with minerals (Multivitamin, Therapeutic w/ Minerals) ocular lubricant (Refresh Optive) omeprazole (omeprazole 20 mg Cap-DR) pravastatin (pravastatin 80 mg Tab) verapamil (verapamil 40 mg oral tablet) zinc sulfate (Zinc) [Image Removed: STOP]Stop taking these medications fluticasone/umeclidi nium/vilanterol (Trelegy Ellipta 100 mcg-62.5 mcg-25 mcg inhalation powder) Procedures Performed Cystourethroscopy with dilation of urethral stricture (12/20/2019), Colonoscopy (08/26/2015), Cataract, Colonoscopy, gamma knife radiation to L lung, hysterectomy, Lung biopsy sample, Oophorectomy, Tonsillectomy and adenoidectomy. Discharge Vitals Heart Rate (Peripheral) 86 Blood Pressure 122/68 Height 159 cm Height 63 in Weight 67.6 kg Weight 148.72 lb BMI 26.74 What to do next Scheduled Follow-Up Appointments Saturday 10:30 AM EDT Where: [facility] Saturday 11:00 AM EST Where: [facility] [place] [facility] Family Medicine Office/Clini c Noteon 01-17-2024 Family Medicine Office/Clinic Note Family Medicine Office/Clinic Note Chief Complaint Sore on leg HPI Staff Patient has sore on right leg after getting into a [employer] [place] and then a fall with a horse happened about 2 weeks ago SAMANTHA 10/23/23 Labs 04/26/23 History of Present Illness 78 y/o female here to discuss skin tear CC confirmed with the patient with no changes CC: the wound seems to be getting worse there's erythema around the wound it's oozing clear to yellow fluid it's tender, but less so then two weeks ago also has a big bruise on her anterior lower leg picture today added to clinical gallergy Review of Systems PHQ Score Initial Depression Screen Score: 0 SCORE Physical Exam Vitals & Measurements HR: 86(Peripheral) BP: 122/68 SpO2: 91% HT: 63 in HT: 159 cm WT: 67.6 kg WT: 148.72 lb BMI: 26.74 Constitutional: Vital signs reviewed; ZAHCARY HOBBS is well nourished, no acute distress Lungs: Clear to auscultation, non-labored respiration - expansion is symmetric Heart: Normal rate and rhythm, normal peripheral perfusion Lymph: Deferred Abd: Deferred : Deferred MSK: Normal gait and station Skin: Warm, dry, anterior right castellano - proximal 1/3 1cm round lesion with a cm of erythematous and minimal swelling around it non-tender Neurologic: Awake, alert and oriented, speech is normal, no focal deficits, CN II-XII grossly intact Psychiatric: Cooperative, appropriate mood and affect, judgement is appropriate Assessment/Plan 1. Cellulitis, leg (L03.119: Cellulitis of unspecified part of limb) *given her possible exposure to sporotrichosis, discussed rationale for treatment Per UpToDate, accessed today, treatment of sporotrichosis is itraconazole 100-200mg for 2-4 weeks after all lesions have resolved However, we have together with the patient, reviewed images of the clinical manifestations of sporotrichosis and I don't believe that's the case here However, if her lesion persists or if she develops lesions that look like that, she has been instructed to let me know so we can initiate treatment In the meantime, I will treat this like a regular skin infection/ mild cellulitis with keflex 500mg QID x 5 days if persists, call for refill Ok to treat symptomatically/ topically with neosporin and band aid for now avoid ointment - cream is preferred by me f/u PRN Ordered: cephalexin, 500 mg = 1 cap(s), Oral, QID, X 5 day(s), # 20 cap(s), Refills(s) 0, Pharmacy: [facility], 159, cm, 01/17/24 14:03:00 EDT, Height/Length Dosing, 67.6, kg, 01/17/24 14:00:00 EDT, Weight Dosing 2. Bruise (T14.8XXA: Other injury of unspecified body region, initial encounter) mild improving no concerns today f/u PRN 3. Tongue lesion (K14.8: Other diseases of tongue) January 13, 2024 - ENT - path was negative for squamous cell; will monitor every other month for two years December 27, 2023 - ENT - initial path was concerning for squamous cell carcinoma continue with monitoring Adult BMI 27.0-27.9 kg/sq m (Z68.27: Body mass index [BMI] 27.0-27.9, adult) Follow-up With When Contact Information Ceferino ROSEN, Jeff Kirkpatrick, THAIS, PED Within 1 month, only if needed [address] [facility] [address] [place] [address] [phone] Additional Instructions: 20 min slot As discussed today, cephalexin/ keflex 500mg four times a day x 5 days If lesion persists, call for refill It would also be ok if you hold off on antibiotic if you feel it's improving If your lesion evolves, like we discussed, let me know and we will change our treatment plan f/u PRN Patient Education Cellulitis, Adult, [id number] Problem List/Past Medical History Ongoing Aortic valve sclerosis Arthritis of knee Bradycardia Bruise Cellulitis, leg Centrilobular emphysema Cervical arthritis Chronic low back pain with left-sided sciatica Complete tear of finger ligament Cough COVID Ear pain Elevated TSH Essential hypertension Eustachian tube dysfunction Fatigue Former smoker GERD (gastroesophageal reflux disease) Hyperlipidemia Incomplete bladder emptying Insomnia Knee pain Moderate asthma Moderate COPD (chronic obstructive pulmonary disease) Neck pain Neuropathy of finger Nocturnal hypoxia Osteopenia Otitis externa Palpitations Personal history of COVID-19 Pollen allergy Poor posture Preoperative clearance Rib pain Somatic dysfunction of cervical region Somatic dysfunction of head region Somatic dysfunction of lower extremities Somatic dysfunction of lumbar region Somatic dysfunction of sacral spine Somatic dysfunction of thoracic region Somatic dysfunction of upper extremities Spasm of lumbar paraspinous muscle Stress incontinence Tongue lesion Trapezius muscle spasm Urethral stricture Urinary frequency Weak urinary stream Historical Adult BMI 27.0-27.9 kg/sq m Aneurysm of internal carotid artery Cervical radiculopathy Chronic obstructive pulmonary disease with (acute) exacerbation 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 Normal [facility] Comment on above: Result Comment: Elec tronically Signed By: Jeff De La Vega DO\Date and Time Signed: 01/17/24 20:41 EDT SURGICAL PATHOLOGY REFERENCE LAB CONSULTon 12-30-2023 CASE REPORT Normal [facility] Comment on above: Order Comment: Speci men Type: FORMALIN-FIXED PARAFFIN-EMBEDDED TISSUE SPECIMEN Ordering Facility: [facility] Address: [address] [place], [place] [address] [id number] Result Comment: Surg ical Pathology Report Case: [id number] Authorizing Provider: Emiliano Dukes, Collected: 12/30/2023 02:21 PM Ordering Location: [facility] Received: 12/30/2023 02:20 PM [facility] Pathologist: Selwyn Ryan MD, PhD Specimen: Slide(s), 3 SLIDES ([id number]) Performed By: #### L [id number] #### [facility] CLIA [id number] [address] [place] [address] [place] CLINICAL HISTORY CONSULT REQUESTED [facility] Comment on above: Order Comment: Speci men Type: FORMALIN-FIXED PARAFFIN-EMBEDDED TISSUE SPECIMEN Ordering Facility: [facility] Address: [address] [place], [place] [address] [address] Performed By: #### L [id number] #### [facility] CLIA [id number] [address] [place] [address] [place] DIAGNOSIS COMMENT [facility] [place] Comment on above: Order Comment: Speci men Type: FORMALIN-FIXED PARAFFIN-EMBEDDED TISSUE SPECIMEN Ordering Facility: [facility] Address: [facility] [place] [address] Result Comment: Than k you for sharing this case in consultation. This left tongue biopsy shows a hyperkeratotic lesion. Although there are numerous candidal organisms in the keratotic layers, the epithelium shows significant cytologic atypia sufficient for the diagnosis of high grade dysplasia / carcinoma in situ. Although the rete of the lesions focally extend below the adjacent rete, these are rounded without associated desmoplasia and I would not consider this to be invasive carcinoma. I have also shared this case with my colleague, Dr. Reggie Jeffrey, who agrees. Performed By: #### L [id number] #### [facility] CLIA [id number] [address] [place] [address] FINAL DIAGNOSIS Normal [facility] Comment on above: Order Comment: Speci men Type: FORMALIN-FIXED PARAFFIN-EMBEDDED TISSUE SPECIMEN Ordering Facility: [facility] Address: [address] [place] [address] Result Comment: Case reviewed in consultation. 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 -Invasive carcinoma is not identified. Performed By: #### L [id number] #### [facility] CLIA [id number] [address] [place] [address] FINAL PERFORMING LAB Normal [facility] Comment on above: Order Comment: Speci men Type: FORMALIN-FIXED PARAFFIN-EMBEDDED TISSUE SPECIMEN Ordering Facility: [facility] Address: [address] [place] [address] Result Comment: Diag nostic interpretation performed at [facility], [address] [place] [address] CLIA# [id number] Personal Insurance Advisor: Brady Chowdary M.D. Performed By: #### L [id number] #### [facility] CLIA [id number] [address] [place] [address] OF [facility] Consultation Noteon 12-27-19 Consultation Note [id number] Normal [facility] Ashok 12-17-2023 L Specimen: [id number] Received: 12/18/23 Status: JOSAFAT Patterson Num: [id number] Spec Type: Surgical Subm Dr: KATHI CASTELLON MD Tissues: A Skin-Other than Cyst, tag, debridement or plastic repair (LT VENTRAL TONGUE Procedures: HE, Gross/Micro L4, Ki-67, CINtec p16 Age/ Patient Sex Location Account Attending Physician FabyZachary Stephy 78/F LABELL [id number] KATHI CASTELLON MD SPEC NUM: [id number] RECD: 12/18/23 STATUS: JOSAFAT PATTERSON NUM: [id number] MAUREEN: 12/17/[address]: KATHI CASTELLON MD ENTERED: 12/18/[address] [facility] [address]: Reddy Katz SPEC TYPE: Surgical DEPT: ZULMA TORRES ORDERED: HE, Gross/Micro L4, Ki-67, CINtec p16 ORDERED: HE, Gross/Micro L4, Ki-67, CINtec p16 Supplemental Report Addendum 1 Entered: 12/31/23 This case was sent to [facility] for consultation. Their diagnosis is as follows: -Keratosis with high-grade dysplasia/carcinoma in situ. -Invasive carcinoma is not identified. Please see attached consultation report from [facility] for diagnostic details. Addendum Signed (signature on file) Emiliano Chappell MD 12/31/231748 Pathological Diagnosis Preliminary report lesion, left ventral tongue, excision: Well-differentiated squamous cell carcinoma. Margins are clear. Pending consultation. Specimen: [id number] Received: 12/18/23 Status: JOSAFAT Patterson Num: [id number] Spec Type: Surgical Subm Dr: KATHI CASTELLON MD Tissues: A Skin-Other than Cyst, tag, debridement or plastic repair (LT VENTRAL TONGUE Procedures: HE, Gross/Micro L4, Ki-67, CINte p16 Patient: Zachary Hobbs [id number] (Continued) Specimen: [id number] Received: 12/18/23 (Continued) Signed (signature on file) Emiliano Chappell MD 12/26/23 1416 Specimen: [id number] Received: 12/18/23 Status: JOSAFAT Patterson Num: [id number] Spec Type: Surgical Subm Dr: KATHI CASTELLON MD Tissues: A Skin-Other than Cyst, tag, debridement or plastic repair (LT VENTRAL TONGUE Procedures: HE, Gross/Micro L4, Ki-67, [facility] Patient: Zachary Hobbs [id number] (Continued) Specimen: [id number] Received: 12/18/23 (Continued) Clinical Information Tongue lesion Gross Description Received in formalin labeled with the patient's name, date of and left ventral tongue lesion is a 1.3 x 1.0 x 0.4 cm pale-swan portion of oral mucosa. The specimen contains a 0.4 x 0.3 cm firm papular lesion on the surface. The specimen is inked orange along its resection margin and quadrisected to reveal a focally hemorrhagic swan-brown cut surface. The specimen is entirely submitted in A1. CPT Codes 46732 [id number] Specimen: [id number] Received: 12/18/23 Status: JOSAFAT Patterson Num: [id number] Spec Type: Surgical Subm Dr: KATHI CASTELLON MD Tissues: A Skin-Other than Cyst, tag, debridement or plastic repair (LT VENTRAL TONGUE Procedures: HE, Gross/Micro L4, Ki-67, [facility] p16 Patient: FabyZachary Stephy [id number] (Continued) Signed (signature on file) Emiliano Chappell MD 12/26/23 1416 Normal [facility] Family Medicine Office/Clini c Noteon 12-12-2023 Family Medicine Office/Clinic Note Chief Complaint surgical clearance HPI Staff surgical clearance for Dr. Castellon- ENT for a ventral tongue lesion WLE procedure under anesthesia. (Dr. De La Vega patient) Labs: 12/06/23 -in chart EC11/26/23- in chart had chest xray done and ENT cleared chest xray PHQ: History of Present Illness Zachary is a 78 year old female who presents for presurgical clearance. She is scheduled to have a tongue surgery next Saturday with Dr. Castellon. I reviewed her recent EKG and lab work. Noted on her recent EKG was a new infarct. I will bring this to the attention of her air hammer stripper and radiation oncologist. I spoke with her oncologists office and made them aware I would be faxing documents for their review. I spoke with Dr. De La Vega and made him aware as well. She is worried about undergoing general anesthesia due to her lung capacity, and history of lung cancer. From my perspective, she should be safe to undergo the procedure, however, Zachary and myself would feel most comfortable making her entire care team aware of her impending surgery. I will fax a letter to Dr. Castellon notifying him of her surgical clearance status. Staff HPI reviewed and accurate. Review of Systems PHQ Score Initial Depression Screen Score: 0 SCORE Physical Exam Vitals & Measurements HR: 88(Peripheral) BP: 128/78 SpO2: 95% HT: 63 in HT: 159 cm WT: 69.9 kg WT: 153.78 lb BMI: 27.65 Tongue: left tongue base - small lesion noted. General: alert, no acute distress ENMT: TM's clear, oral mucosa moist, no pharyngeal erythema or exudate Cardiovascular: regular rate and rhythm, normal peripheral perfusion Respiratory: Lungs diminished t/o posterior lobes, respirations non labored Extremities: no deformity, no trauma Neurological: oriented x 4, LOC appropriate for age, CN II-XII intact, motor strength equal & normal bilaterally, sensation equal & normal bilaterally, speech normal Assessment/Plan 1. Preoperative clearance (Z01.818: Encounter for other preprocedural examination) See HPI. Communication with entire care team being facilitated. From my stand point, she is ok to proceed with the procedure next week, and the benefits out weigh the risks. 2. BMI 27.0-27.9,adult (Z68.27: Body mass index [BMI] 27.0-27.9, adult) Continue to monitor Ordered: Body Mass Index (BMI) documented 3008F Current tobacco non-user 1036F Depression Screening Negative 3352F Influenza immunization status assessed 1030F Most recent diastolic blood pressure <80 mm Hg 3078F Patient screen for fall risk: no falls in last year or 1 fall with no injury in last year 1101F Systolic BP <130 mm Hg (Most Recent) 3074F 3. Former smoker (Z87.891: Personal history of nicotine dependence) Stable 4. 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 Moderate COPD (chronic obstructive pulmonary disease) (J44.9: Chronic obstructive pulmonary disease, unspecified) Continue to monitor Continue current regimen 6. Tongue lesion (K14.8: Other diseases of tongue) see 1 Follow-up No qualifying data available Problem List/Past Medical History Ongoing Aortic valve sclerosis Arthritis of knee Bradycardia Centrilobular emphysema Cervical arthritis Chronic low back pain with left-sided sciatica Complete tear of finger ligament Cough COVID Ear pain Elevated TSH Essential hypertension Eustachian tube dysfunction Fatigue Former smoker GERD (gastroesophageal reflux disease) Hyperlipidemia Incomplete bladder emptying Insomnia Knee pain Moderate asthma Moderate COPD (chronic obstructive pulmonary disease) Neck pain Neuropathy of finger Nocturnal hypoxia Osteopenia Otitis externa Palpitations Personal history of COVID-19 Pollen allergy Poor posture Preoperative clearance Rib pain Somatic dysfunction of cervical region Somatic dysfunction of head region Somatic dysfunction of lower extremities Somatic dysfunction of lumbar region Somatic dysfunction of sacral spine Somatic dysfunction of thoracic region Somatic dysfunction of upper extremities Spasm of lumbar paraspinous muscle Stress incontinence Tongue lesion Trapezius muscle spasm Urethral stricture Urinary frequency Weak urinary stream Historical Adult BMI 27.0-27.9 kg/sq m Aneurysm of internal carotid artery Cervical radiculopathy Chronic obstructive pulmonary disease with (acute) exacerbation Chronic respiratory failure with hypoxia COVID-19 emphysema Exertional chest pain Exposure to chemical irritant H/O: lung cancer Hypercholesterolemia Lung cancer Malignant neoplasm of upper lobe, left bronchus or lung Nicotine dependence Nocturia Oral thrush JESIKA (obstructive sleep apnea) Osteoporosis Panacinar emphysema Plantar fasciitis of right foot Pulmonary nodule, left Shortness of breath Procedure/Surgical History Cystourethroscopy with dilation of urethral stricture (12/20/2019), (more content not included)... [facility] Comment on above: Result Comment: Elec tronically Signed By: BARB KAMARA\.br\Date and Time Signed: 12/12/23 08:02 EDT Patient Correspondenceon Patient Correspondence [id number] #1.00TIFF Normal [facility] Patient Letter FTon 2023 Patient Letter [facility] [address] [place] [address] December 12, 2023 [place] [address] : 1945 Dr. Castellon, I evaluated Zachary 12/11/2023 for her primary care presurgical clearance. I have attached my visit note for your review. From a primary care standpoint, she is cleared to proceed with her surgery, as the benefits outweigh the risks. I would like to bring to your attention a change on her recent EKG, which indicated an infarct not seen on prior testing. I will make her air hammer stripper, Dr. Brown, aware of his change. Should he have additional concerns, I will communicate those with you. Regards, EDGARD Foss Normal [facility] Patient Letter [facility] [place] 2023 Patient Letter [facility] [address] [place] [address] December 11, 2023 [place] [address] : 1945 To Whom It May Concern, Zachary was seen today in primary care for presurgical clearance. She is cleared from a primary care stand point to proceed with her tongue surgery. Her office visit note is attached for your review. Sincerely, EDGARD Foss [facility] Consultation Noteon 12-09-19 Consultation Note [id number] #1.00TIFF Normal [facility] ECG 12-Leadon 12-09-2023 ECG 12-Lead [id number]# 1.00TIFF [facility] Lab Reportson 12-09-2023 Lab Reports [id number] #1.00TIFF Normal [facility] Consultation Noteon 11-29-19 Consultation Note [id number] #1.00TIFF [facility] Insurance Correspondenceon 0 10-25-2023 Insurance Correspondence [id number] 7#1.00TIFF [facility] Physician Referralon 024 Physician Referral [id number] 4#1.00TIFF Normal [facility] Family Medicine Office/Clini c Noteon 10-24-2023 Family Medicine Office/Clinic Note Chief Complaint F/U OMT HPI Staff Patient here today for OMT F/U SAMANTHA 09/05/23 Patient states she is taking Mucinex for congestion. 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 Mena Cardiology Dr. Quezada Dermatology - Milad GUTIÉRREZ Vascular surgery [facility] monitoring carotid aneurysm HPI staff / Chief Complaint confirmed with the patient This patient was seen for this complaint previously and treated with manipulation (OMT aka OMM). The patient reports SOME improvement of symptoms after OMT. Today, the patient reports their symptoms are PRESENT and is requesting OMT again. Based on their report of symptoms and my exam findings, I believe OMT is appropriate today. The patient expresses consent for manipulation today. Today, the patient describes increased stiffness in forward flexion of the neck neck pain and posterior headache is at baseline NECK pain is 3 out of 10 Described as stiff and aching - hurting a little less today The patient describes NO radiation down the ARMS LAYING ON A ROLL OF PAPER TOWELS seems to make it better BENDING FORWARD and wrong position for sleep seems to make it worse The patient is GENERALLY consistent with medication Recently spent some time in [place] wants to discuss a spot on the bottom of her tongue that's been there for at least two years previously referred to ENT for possible tubes but around the same time was treated for cancer - never circled back to ENT PHYSICAL EXAM Constitutional: Vital signs reviewed; ZACHARY HOBBS is well nourished, no acute distress HENT: right, anterior tongue on the inferior surface, a small, flat dark blue lesion 2-3mm across with irregular borders Lungs: Clear to auscultation, non-labored respiration - expansion is symmetric Heart: Normal rate and rhythm, normal peripheral perfusion MSK: Thoracic paraspinal muscles are tight/tender bilaterally; worse on the right tenderness at the lateral aspect of C4 on the right Skin: Warm, dry Neurologic: Awake, alert and oriented Psychiatric: Cooperative, appropriate mood and affect, judgement is appropriate Procedure documentation - Osteopathic Manipulation Head: OA dysfunction - treated with BLT and FPR - with objective and subjective improvement Cervical Spine: Reduced range of motion, tenderness at the insertion of the middle scalene on rib 1 on BILAT; worse on the right - treated with BLT and FPR - with objective and subjective improvement Thoracic Spine: Chronic and acute tissue texture changes of the trapezius, rhomboid BILAT; worse on the right - treated with myofascial, BLT and FPR - with objective and subjective improvement PLAN 1. Neck pain (M54.2) Acute on Chronic NO recent trauma There are no neurologic symptoms or signs that raise concern for cord compression no - lower extremity weakness no - gait or coordination difficulties no - bladder or bowel dysfunction no - Lhermitte?s sign (electric or shock-like sensations that run down the back and/or limbs upon flexion or the neck) *if positive, cervical spondylotic myelopathy NO OTHER obvious red flag signs F/u 1 month or PRN 2. Spasm of the trapezius muscle (M62.838) Acute on chronic Likely contributing to the above Etiology is likely a combination of sub-optimal mechanics, muscle imbalance, posture vs other Recommend that the patient work on postural exercises Improved with OMM today F/u 1 month or PRN 4. Poor posture (R29.3) Acute on chronic Likely contributes to above Discussed how to work on this between appts Discussed on this can play a role in straining the muscles of the cervical spine and can contribute to headaches as well Work on postural exercises F/u 1 month or PRN 7. Somatic dysfunction of the head (M99.00) Manipulation described as above Provided with permission by the patient The patient tolerated manipulation well and the procedure went as planned without incident Range of motion and function have improved with objective improvement of signs and subjective improvement of symptoms Patient to follow-up in 3-4 weeks for additional manipulation if needed (or sooner PRN) Discussed the importance of postural exercises - see above and instructions below 8. Somatic dysfunction of the Cervical Spine (M99.01) see OMM portion for more details 9. Somatic dysfunction of the Thoracic Spine (M99.02) see OMM portion for more details Total time spent TODAY preparing the chart, face to face with the pa (more content not included)... Normal [facility] Comment on above: Result Comment: Elec tronically Signed By: Jeff De La Vega DO\.br\Date and Time Signed: 10/24/23 11:07 EDT Ambulatory Visit Summaryon 0 10-23-2023 Ambulatory Visit Summary ZCAHARY HOBBS Stephy :1945 Visit Date:10/23/2023 Ambulatory Visit Instructions Your Diagnosis Neck pain Trapezius muscle spasm Poor posture Somatic dysfunction of head region Somatic dysfunction of cervical region Somatic dysfunction of thoracic region Tongue lesion Eustachian tube dysfunction Ear pain Otitis externa Adult BMI 27.0-27.9 kg/sq m Your Care Team Attending Physician - Jeff De La Vega DO Primary Care Physician - Jeff De La Vega DO This Is Your Medications List ciprofloxacin-dexame thasone otic (Ciprodex 0.3%-0.1% Susp-Otic) Contact prescribing physician if questions or concerns Misc Prescription (permanent handicap placard) Oxygen (Oxygen - for Home) albuterol (Albuterol (Eqv-ProAir HFA) 90 mcg/inh inhalation aerosol) albuterol (albuterol 0.083% Inh Bing 3 mL) aspirin calcium-vitamin D (Calcium 600+D) fluticasone/umeclidi nium/vilanterol (Trelegy Ellipta 100 mcg-62.5 mcg-25 mcg inhalation powder) fluticasone/umeclidi nium/vilanterol (Trelegy Ellipta 100 mcg-62.5 mcg-25 mcg inhalation powder) gabapentin (gabapentin 100 mg Cap) levothyroxine (levothyroxine 50 mcg (0.05 mg) Tab) lorazepam (LORazepam 0.5 mg Tab) melatonin (melatonin 10 mg oral tablet) montelukast (montelukast 10 mg Tab) multivitamin with minerals (Multivitamin, Therapeutic w/ Minerals) ocular lubricant (Refresh Optive) omeprazole (omeprazole 20 mg Cap-DR) pravastatin (pravastatin 80 mg Tab) verapamil (verapamil 40 mg oral tablet) zinc sulfate (Zinc) Procedures Performed Cystourethroscopy with dilation of urethral stricture (12/20/2019), Colonoscopy (08/26/2015), Cataract, Colonoscopy, gamma knife radiation to L lung, hysterectomy, Lung biopsy sample, Oophorectomy, Tonsillectomy and adenoidectomy. Discharge Vitals Heart Rate (Peripheral) 91 Blood Pressure 118/64 Height 159 cm Height 63 in Weight 70.6 kg Weight 155.32 lb BMI 27.93 What to do next Scheduled Follow-Up Appointments Saturday 10:30 AM EDT Where: Cardiovascular Services Saturday 11:00 AM EST Where: [facility] [place] Normal Eustachian tube dysfunction\.br\ Medications\.br\ What How Much When Why Instructions\.br\ New ciprofloxacin-dex amethasone otic (Ciprodex 0.3%-0.1% Susp-Otic) 4 Drops Otic 2 times a day Otitis externa Duration: 7 Days Pickup at [facility]\.br\ Unchanged albuterol (Albuterol (Eqv-ProAir HFA) 90 mcg/ inh inhalation aerosol) 2 Puffs Inhalation Every 6 hours COPD mixed type Contact prescribing physician if questions or concerns \.br\ Unchanged albuterol (albuterol 0.083% Inh Bing 3 mL) 3 Milliliter Inhalation Every 6 hours as needed for as needed for wheezing Q6H and PRN Contact prescribing physician if questions or concerns \.br\ Unchanged aspirin 81 Milligram By Mouth Every day Contact prescribing physician if questions or concerns \.br\ Unchanged calcium-vitamin D (Calcium 600+D) 1 tab By Mouth Every day Contact prescribing physician if questions or concerns \.br\ Unchanged fluticasone/ umeclidinium/ vilanterol (Trelegy Ellipta 100 mcg-62.5 mcg-25 mcg inhalation powder) 1 Puffs Inhalation Every day Contact prescribing physician if questions or concerns \.br\ Unchanged fluticasone/ umeclidinium/ vilanterol (Trelegy Ellipta 100 mcg-62.5 mcg-25 mcg inhalation powder) 1 Puffs Inhalation Every day Contact prescribing physician if questions or concerns \.br\ Unchanged gabapentin (gabapentin 100 mg Cap) 1 Capsules By Mouth 3 times a day Contact prescribing physician if questions or concerns \.br\ Unchanged levothyroxine (levothyroxine 50 mcg (0.05 mg) Tab) 1 Tablets By Mouth Every day Hypothyroidism Contact prescribing physician if questions or concerns \.br\ Unchanged lorazepam (LORazepam 0.5 mg Tab) 1 Tablets By Mouth Once a day (at bedtime) Insomnia 90 day rx Contact prescribing physician if questions or concerns \.br\ Unchanged melatonin (melatonin 10 mg oral tablet) By Mouth Once a day (at bedtime) Contact prescribing physician if questions or concerns \.br\ Unchanged Misc Prescription (permanent handicap placard) See instructions 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 Contact prescribing physician if questions or concerns \.br\ Unchanged montelukast (montelukast 10 mg Tab) 1 Tablets By Mouth Once a day (in the evening) Asthma, persistent not controlled Contact prescribing physician if questions or concerns \.br\ Unchanged multivitamin with minerals (Multivitamin, Therapeutic w/ Minerals) 1 Tablets By Mouth Every day Contact prescribing physician if questions or concerns \.br\ Unchanged ocular lubricant (Refresh Optive) 1 Drops Both eyes 2 times a day as needed for Dry eyes Contact prescribing physician if questions or concerns \.br\ Unchanged omeprazole (omeprazole 20 mg Cap-DR) 2 Capsules By Mouth Every day GERD (gastroesophageal reflux disease) Contact prescribing physician if questions or concerns \.br\ Unchanged Oxygen (Oxygen - for Home) 2 Liter/minute Nasal Cannula Every day Oxygen - Continuous or Nocturnal Diagnosis: Portable 02 for physician visits, oxygen conservation Contact prescribing physician if questions or concerns \.br\ Unchanged pravastatin (pravastatin 80 mg Tab) 1 Tablets By Mouth Once a day (at bedtime) Contact prescribing physician if questions or concerns \.br\ Unchanged verapamil (verapamil 40 mg oral tablet) 1 Tablets By Mouth 2 times a day Essential hypertension Contact prescribing physician if questions or concerns \.br\ Unchanged zinc sulfate (Zinc) 50 Milligram By Mouth Every day Contact prescribing physician if questions or concerns \.br\ Pharmacy Information\.br\ [facility]: [address] [address] [place] [id number] [phone]\.br\ Allergies\.br\ No Known Allergies\.br\ Problems\.br\ Ongoing - Any problem that you are currently receiving treatment for.\.br\ Aortic valve sclerosis\.br\ Arthritis of knee\.br\ Bradycardia\.br\ Centrilobular emphysema\.br\ Cervical arthritis\.br\ Chronic low back pain with left-sided sciatica\.br\ Complete tear of finger ligament\.br\ Cough\.br\ COVID\.br\ Ear pain\.br\ Elevated TSH\.br\ Essential hypertension\.br\ Eustachian tube dysfunction\.br\ Fatigue\.br\ Former smoker\.br\ GERD (gastroesophageal reflux disease)\.br\ Hyperlipidemia\.b r\ Incomplete bladder emptying\.br\ Insomnia\.br\ Knee pain\.br\ Moderate asthma\.br\ Moderate COPD (chronic obstructive pulmonary disease)\.br\ Neck pain\.br\ Neuropathy of finger\.br\ Nocturnal hypoxia\.br\ Osteopenia\.br\ Otitis externa\.br\ Palpitations\.br\ Personal history of COVID-19\.br\ Pollen allergy\.br\ Poor posture\.br\ Rib pain\.br\ Somatic dysfunction of cervical region\.br\ Somatic dysfunction of head region\.br\ Somatic dysfunction of lower extremities\.br\ Somatic dysfunction of lumbar region\.br\ Somatic dysfunction of sacral spine\.br\ Somatic dysfunction of thoracic region\.br\ Somatic dysfunction of upper extremities\.br\ Spasm of lumbar paraspinous muscle\.br\ Stress incontinence\.br\ Tongue lesion\.br\ Trapezius muscle spasm\.br\ Urethral stricture\.br\ Urinary frequency\.br\ Weak urinary stream\.br\ Historical - Any problem that you are no longer receiving treatment for.\.br\ Adult BMI 27.0-27.9 kg/sq m\.br\ Aneurysm of internal carotid artery\.br\ Cervical radiculopathy\.br \ Chronic obstructive pulmonary disease with (acute) exacerbation\.br\ Chronic respiratory failure with hypoxia\.br\ COVID-19\.br\ emphysema\.br\ Exertional chest pain\.br\ Exposure to chemical irritant\.br\ H/O: lung cancer\.br\ Hypercholesterole marquise\.br\ Lung cancer\.br\ Malignant neoplasm of upper lobe, left bronchus or lung\.br\ Nicotine dependence\.br\ Nocturia\.br\ Oral thrush\.br\ EJSIKA (obstructive sleep apnea)\.br\ Osteoporosis\.br\ Panacinar emphysema\.br\ Plantar fasciitis of right foot\.br\ Pulmonary nodule, left\.br\ Shortness of breath\.br\ Patient Survey\.br\ You may receive a survey via text or e-mail asking about your office visit. Please share your experience with us by completing your survey. We appreciate your feedback and thank you for choosing us for your care.\.br\ \.br\ [facility] Patient Letter FTon 2023 Patient Letter [facility] [place] 11, 2023 ZACHARY HOBBS [address] [place] [address] : 1945 Dear Zachary, This is a reminder that you are due for an appointment with [facility]. Please contact our office at [phone] to schedule an appointment at your earliest convenience. Thank you, [facility] Normal [facility] Reminderson 09-11-2023 Reminders - From: Dee Dee Urbina MA To: [facility] - Reminders/Recalls; Sent: 07/04/2023 14:40:15 EST Show up: 09/09/2023 14:40:00 EST Subject: colon recall Due Date/Time: 10/10/2023 14:40:00 EDT Reminder Message [address] Arteaga 10/09/18 first recall letter [facility] Family Medicine Office/Clini c Noteon 09-06-2023 Family Medicine Office/Clinic Note Chief Complaint OMT HPI Staff Patient here today ti F/U OMT neck/back pain SAMANTHA 08/06/23 Patient states she has a itchy left eyelid, eye gave her a sample of Lastacaft but not helping. 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 Mena Cardiology Dr. Quezada Dermatology - Milad Co[facility] - [facility] Vascular surgery [facility] monitoring carotid aneurysm HPI staff / Chief Complaint confirmed with the patient This patient was seen for this complaint previously and treated with manipulation (OMT aka OMM). The patient reports SOME improvement of symptoms after OMT. Today, the patient reports their symptoms are PRESENT and is requesting OMT again. Based on their report of symptoms and my exam findings, I believe OMT is appropriate today. The patient expresses consent for manipulation today. Today, the patient describes increased stiffness in forward flexion of the neck neck pain and posterior headache is at baseline NECK pain is 3 out of 10 Described as stiff and aching The patient describes NO radiation down the ARMS LAYING ON A ROLL OF PAPER TOWELS seems to make it better BENDING FORWARD and wrong position for sleep seems to make it worse The patient is GENERALLY consistent with medication August 08, [id number]-Awf alie a Felter 1. Seborrheic keratosis: Right forearm Stuck on mucus, variably pigmented papules and plaques Counseled regarding these benign growths Removal is not normally necessary but they may be removed if they are symptomatic or for cosmetic reasons Recommend skin check in 3 months Aug 06, 2023 - last appt here upcoming derm appt noted recent episode of thrush which resolved when she ate yogurt PHYSICAL EXAM Constitutional: Vital signs reviewed; ZACHARY HOBBS is well nourished, no acute distress Lungs: Clear to auscultation, non-labored respiration - expansion is symmetric Heart: Normal rate and rhythm, normal peripheral perfusion MSK: Thoracic paraspinal muscles are tight/tender bilaterally; worse on the right Cervical AROM: Rotation is reduced somewhat bilaterally Flexion ROM is appropriate - but feels stiff Extension is appropriate Side bending is reduced bilaterally Skin: Warm, dry Neurologic: Awake, alert and oriented Psychiatric: Cooperative, appropriate mood and affect, judgement is appropriate Procedure documentation - Osteopathic Manipulation Head: OA dysfunction - treated with BLT and FPR - with objective and subjective improvement Cervical Spine: Reduced range of motion, tenderness at the insertion of the middle scalene on rib 1 on BILAT; worse on the _ - treated with BLT and FPR - with objective and subjective improvement Thoracic Spine: Chronic and acute tissue texture changes of the trapezius, rhomboid BILAT; worse on the _ - treated with myofascial, BLT and FPR - with objective and subjective improvement PLAN 1. Neck pain (M54.2) Acute on Chronic NO recent trauma There are no neurologic symptoms or signs that raise concern for cord compression no - lower extremity weakness no - gait or coordination difficulties no - bladder or bowel dysfunction no - Lhermitte?s sign (electric or shock-like sensations that run down the back and/or limbs upon flexion or the neck) *if positive, cervical spondylotic myelopathy NO OTHER obvious red flag signs F/u 1 month or PRN 2. Spasm of the trapezius muscle (M62.838) Acute on chronic Likely contributing to the above Etiology is likely a combination of sub-optimal mechanics, muscle imbalance, posture vs other Recommend that the patient work on postural exercises Improved with OMM today F/u 1 month or PRN 5. Arthritis (M19.9) Chronic Sub-optimal control; stable Room for improvement Discussed the rationale for NSAIDs and tylenol PRN in managing symptoms *avoid NSAIDS in patients who have contraindications Discussed the rationale for PRN meds vs scheduled vs maximal dosing per recs Topical vs oral meds discussed Discussed the rational for PT; deferred today F/u PRN 6. Headache, tension (G44.209) Chronic Sub-optimal control Multifactorial etiology Discussed mechanics and posture - see poor posture above Discussed stress management Discussed medications Begin cyclobenzaprine Begin meloxicam f/u 1 month 7. Somatic dysfunction of the head (M99.00) Manipulation described as above Provided with permission by the patient The pa (more content not included)... Normal [facility] Comment on above: Result Comment: Elec tronically Signed By: Cromley DO, Jeff J\.br\Date and Time Signed: 09/06/23 17:04 EST Ambulatory Visit Summaryon 0 09-05-2023 Ambulatory Visit Summary ZACHARY HOBBS :1945 Visit Date:09/05/2023 Ambulatory Visit Instructions Your Diagnosis Neck pain Trapezius muscle spasm Cervical arthritis Somatic dysfunction of head region Somatic dysfunction of cervical region Somatic dysfunction of thoracic region Adult BMI 27.0-27.9 kg/sq m Insomnia [facility] Team Attending Physician - Jeff De La Vega DO Primary Care Physician - Jeff De La Vega DO This Is Your Medications List Contact prescribing physician if questions or concerns Misc Prescription (permanent handicap placard) Oxygen (Oxygen - for Home) albuterol (Albuterol (Eqv-ProAir HFA) 90 mcg/inh inhalation aerosol) albuterol (albuterol 0.083% Inh Bing 3 mL) aspirin calcium-vitamin D (Calcium 600+D) fluticasone/umeclidi nium/vilanterol (Trelegy Ellipta 100 mcg-62.5 mcg-25 mcg inhalation powder) gabapentin (gabapentin 100 mg Cap) levothyroxine (levothyroxine 50 mcg (0.05 mg) Tab) lorazepam (LORazepam 0.5 mg Tab) melatonin (melatonin 10 mg oral tablet) montelukast (montelukast 10 mg Tab) multivitamin with minerals (Multivitamin, Therapeutic w/ Minerals) ocular lubricant (Refresh Optive) omeprazole (omeprazole 20 mg Cap-DR) pravastatin (pravastatin 80 mg Tab) verapamil (verapamil 40 mg oral tablet) zinc sulfate (Zinc) Procedures Performed Cystourethroscopy with dilation of urethral stricture (12/20/2019), Colonoscopy (08/26/2015), Cataract, Colonoscopy, gamma knife radiation to L lung, hysterectomy, Lung biopsy sample, Oophorectomy, Tonsillectomy and adenoidectomy. Discharge Vitals Blood Pressure 118/64 Height 159 cm Height 63 in Weight 69 kg Weight 151.8 lb BMI 27.29 What to do next Scheduled Follow-Up Appointments Saturday 10:40 AM EDT With: Jeff De La Vega DO Where: [facility] [address] [place] [address]-\.br\ You Need to Schedule the Following Appointments\.br\ Follow Up with Ceferino ROSEN, Jeff Kirkpatrick, THAIS, PED When: Within 1 month\.br\ Comments:\.br\ OMT PRN - 40 min slot\.br\ To go instructions (to paste into follow up):\.br\ For your eyelid itchiness, use topical hydrocortisone cream that's available over the counter twice a day for 2 weeks max - then take 2 weeks off before resuming\.br\ An alternative way to treat is as needed - if you use once a day, or every other day and that controls symptoms, you don't have to take as much time off\.br\ Work on engaging core muscles - supine with knees bent\.br\ Our goal is to address trunk stability and share the work with the other erector muscles\.br\ Work on shoulder retraction exercises\.br\ F/u 1 month or as needed\.br\ Where:\.br\ [address]\.br\ [place] [address]\.br\ [phone]\.br\ Medications\.br\ What How Much When Why Instructions\.br\ Unchanged albuterol (Albuterol (Eqv-ProAir HFA) 90 mcg/ inh inhalation aerosol) 2 Puffs Inhalation Every 6 hours COPD mixed type Contact prescribing physician if questions or concerns \.br\ Unchanged albuterol (albuterol 0.083% Inh Bing 3 mL) 3 Milliliter Inhalation Every 6 hours as needed for as needed for wheezing Q6H and PRN Contact prescribing physician if questions or concerns \.br\ Unchanged aspirin 81 Milligram By Mouth Every day Contact prescribing physician if questions or concerns \.br\ Unchanged calcium-vitamin D (Calcium 600+D) 1 tab By Mouth Every day Contact prescribing physician if questions or concerns \.br\ Unchanged fluticasone/ umeclidinium/ vilanterol (Trelegy Ellipta 100 mcg-62.5 mcg-25 mcg inhalation powder) 1 Puffs Inhalation Every day COPD mixed type Duration: 30 Days Contact prescribing physician if questions or concerns \.br\ Unchanged gabapentin (gabapentin 100 mg Cap) 1 Capsules By Mouth 3 times a day Contact prescribing physician if questions or concerns \.br\ Unchanged levothyroxine (levothyroxine 50 mcg (0.05 mg) Tab) 1 Tablets By Mouth Every day Hypothyroidism Contact prescribing physician if questions or concerns \.br\ Unchanged lorazepam (LORazepam 0.5 mg Tab) 1 Tablets By Mouth Once a day (at bedtime) Insomnia 90 day rx Contact prescribing physician if questions or concerns \.br\ Unchanged melatonin (melatonin 10 mg oral tablet) By Mouth Once a day (at bedtime) Contact prescribing physician if questions or concerns \.br\ Unchanged Misc Prescription (permanent handicap placard) See instructions 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 Contact prescribing physician if questions or concerns \.br\ Unchanged montelukast (montelukast 10 mg Tab) 1 Tablets By Mouth Once a day (in the evening) Asthma, persistent not controlled Contact prescribing physician if questions or concerns \.br\ Unchanged multivitamin with minerals (Multivitamin, Therapeutic w/ Minerals) 1 Tablets By Mouth Every day Contact prescribing physician if questions or concerns \.br\ Unchanged ocular lubricant (Refresh Optive) 1 Drops Both eyes 2 times a day as needed for Dry eyes Contact prescribing physician if questions or concerns \.br\ Unchanged omeprazole (omeprazole 20 mg Cap-DR) 2 Capsules By Mouth Every day GERD (gastroesophageal reflux disease) Contact prescribing physician if questions or concerns \.br\ Unchanged Oxygen (Oxygen - for Home) 2 Liter/minute Nasal Cannula Every day Oxygen - Continuous or Nocturnal Diagnosis: Portable 02 for physician visits, oxygen conservation Contact prescribing physician if questions or concerns \.br\ Unchanged pravastatin (pravastatin 80 mg Tab) 1 Tablets By Mouth Once a day (at bedtime) Contact prescribing physician if questions or concerns \.br\ Unchanged verapamil (verapamil 40 mg oral tablet) 1 Tablets By Mouth 2 times a day Essential hypertension Contact prescribing physician if questions or concerns \.br\ Unchanged zinc sulfate (Zinc) 50 Milligram By Mouth Every day Contact prescribing physician if questions or concerns \.br\ Allergies\.br\ No Known Allergies\.br\ Problems\.br\ Ongoing - Any problem that you are currently receiving treatment for.\.br\ Aortic valve sclerosis\.br\ Arthritis of knee\.br\ Bradycardia\.br\ Centrilobular emphysema\.br\ Cervical arthritis\.br\ Chronic low back pain with left-sided sciatica\.br\ Complete tear of finger ligament\.br\ Cough\.br\ COVID\.br\ Elevated TSH\.br\ Essential hypertension\.br\ Fatigue\.br\ Former smoker\.br\ GERD (gastroesophageal reflux disease)\.br\ Hyperlipidemia\.b r\ Incomplete bladder emptying\.br\ Insomnia\.br\ Knee pain\.br\ Moderate asthma\.br\ Moderate COPD (chronic obstructive pulmonary disease)\.br\ Neck pain\.br\ Neuropathy of finger\.br\ Nocturnal hypoxia\.br\ Oral thrush\.br\ Osteopenia\.br\ Palpitations\.br\ Personal history of COVID-19\.br\ Pollen allergy\.br\ Rib pain\.br\ Somatic dysfunction of cervical region\.br\ Somatic dysfunction of head region\.br\ Somatic dysfunction of lower extremities\.br\ Somatic dysfunction of lumbar region\.br\ Somatic dysfunction of sacral spine\.br\ Somatic dysfunction of thoracic region\.br\ Somatic dysfunction of upper extremities\.br\ Spasm of lumbar paraspinous muscle\.br\ Stress incontinence\.br\ Trapezius muscle spasm\.br\ Urethral stricture\.br\ Urinary frequency\.br\ Weak urinary stream\.br\ Historical - Any problem that you are no longer receiving treatment for.\.br\ Adult BMI 27.0-27.9 kg/sq m\.br\ Aneurysm of internal carotid artery\.br\ Cervical radiculopathy\.br \ Chronic obstructive pulmonary disease with (acute) exacerbation\.br\ Chronic respiratory failure with hypoxia\.br\ COVID-19\.br\ emphysema\.br\ Exertional chest pain\.br\ Exposure to chemical irritant\.br\ H/O: lung cancer\.br\ Hypercholesterole marquise\.br\ Lung cancer\.br\ Malignant neoplasm of upper lobe, left bronchus or lung\.br\ Nicotine dependence\.br\ Nocturia\.br\ JESIKA (obstructive sleep apnea)\.br\ Osteoporosis\.br\ Panacinar emphysema\.br\ Plantar fasciitis of right foot\.br\ Pulmonary nodule, left\.br\ Shortness of breath\.br\ Patient Survey\.br\ You may receive a survey via text or e-mail asking about your office visit. Please share your experience with us by completing your survey. We appreciate your feedback and thank you for choosing us for your care.\.br\ Education Materials\.br\ Heat Therapy\.br\ Heat therapy can help ease sore, stiff, injured, and tight muscles and joints.\.br\ Heat relaxes your muscles. This may help ease your pain and muscle spasms.\.br\ What are the risks?\.br\ If you have any of the following conditions, do not use heat therapy unless your doctor says it is okay. These conditions include:\.br\ ? \.br\ New bruises.\.br\ ? \.br\ Open wounds.\.br\ ? \.br\ Any of these in the area being treated:\.br\ ? \.br\ Healing wounds.\.br\ ? \.br\ Infected skin.\.br\ ? \.br\ Scarred skin.\.br\ ? \.br\ Problems with how blood moves through your body (circulation).\.b r\ ? \.br\ Loss of feeling (numbness) in the part of your body that is being treated.\.br\ ? \.br\ Unusual swelling of the part of the body that is being treated.\.br\ ? \.br\ Blood clots.\.br\ ? \.br\ Diabetes.\.br\ ? \.br\ Heart disease.\.br\ ? \.br\ Cancer.\.br\ ? \.br\ Not being able to communicate pain. This may include young children and pe [facility] Ambulatory Visit Summary FABY ZACHARY Stephy :1945 Visit Date:09/05/2023 Ambulatory Visit Instructions Your Diagnosis Neck pain Trapezius muscle spasm Cervical arthritis Somatic dysfunction of head region Somatic dysfunction of cervical region Somatic dysfunction of thoracic region Adult BMI 27.0-27.9 kg/sq m Insomnia [facility] Your Care Team Attending Physician - Jeff De La Vega DO Primary Care Physician - Jeff De La Vega DO This Is Your Medications List Contact prescribing physician if questions or concerns Misc Prescription (permanent handicap placard) Oxygen (Oxygen - for Home) albuterol (Albuterol (Eqv-ProAir HFA) 90 mcg/inh inhalation aerosol) albuterol (albuterol 0.083% Inh Bing 3 mL) aspirin calcium-vitamin D (Calcium 600+D) fluticasone/umeclidi nium/vilanterol (Trelegy Ellipta 100 mcg-62.5 mcg-25 mcg inhalation powder) gabapentin (gabapentin 100 mg Cap) levothyroxine (levothyroxine 50 mcg (0.05 mg) Tab) lorazepam (LORazepam 0.5 mg Tab) melatonin (melatonin 10 mg oral tablet) montelukast (montelukast 10 mg Tab) multivitamin with minerals (Multivitamin, Therapeutic w/ Minerals) ocular lubricant (Refresh Optive) omeprazole (omeprazole 20 mg Cap-DR) pravastatin (pravastatin 80 mg Tab) verapamil (verapamil 40 mg oral tablet) zinc sulfate (Zinc) Procedures Performed Cystourethroscopy with dilation of urethral stricture (12/20/2019), Colonoscopy (08/26/2015), Cataract, Colonoscopy, gamma knife radiation to L lung, hysterectomy, Lung biopsy sample, Oophorectomy, Tonsillectomy and adenoidectomy. Discharge Vitals Blood Pressure 118/64 Height 159 cm Height 63 in Weight 69 kg Weight 151.8 lb BMI 27.29 What to do next Scheduled Follow-Up Appointments Saturday 10:40 AM EDT With: Jeff De La Vega DO Where: [facility] [address] [place] [address]-\.br\ You Need to Schedule the Following Appointments\.br\ Follow Up with Jeff De La Vega DO, FAM, PED When: Within 1 month\.br\ Comments:\.br\ OMT PRN - 40 min slot\.br\ To go instructions (to paste into follow up):\.br\ For your eyelid itchiness, use topical hydrocortisone cream that's available over the counter twice a day for 2 weeks max - then take 2 weeks off before resuming\.br\ An alternative way to treat is as needed - if you use once a day, or every other day and that controls symptoms, you don't have to take as much time off\.br\ Work on engaging core muscles - supine with knees bent\.br\ Our goal is to address trunk stability and share the work with the other erector muscles\.br\ Work on shoulder retraction exercises\.br\ F/u 1 month or as needed\.br\ Where:\.br\ [address]\.br\ [place] [address]\.br\ [phone]\.br\ Medications\.br\ What How Much When Why Instructions\.br\ Unchanged albuterol (Albuterol (Eqv-ProAir HFA) 90 mcg/ inh inhalation aerosol) 2 Puffs Inhalation Every 6 hours COPD mixed type Contact prescribing physician if questions or concerns \.br\ Unchanged albuterol (albuterol 0.083% Inh Bing 3 mL) 3 Milliliter Inhalation Every 6 hours as needed for as needed for wheezing Q6H and PRN Contact prescribing physician if questions or concerns \.br\ Unchanged aspirin 81 Milligram By Mouth Every day Contact prescribing physician if questions or concerns \.br\ Unchanged calcium-vitamin D (Calcium 600+D) 1 tab By Mouth Every day Contact prescribing physician if questions or concerns \.br\ Unchanged fluticasone/ umeclidinium/ vilanterol (Trelegy Ellipta 100 mcg-62.5 mcg-25 mcg inhalation powder) 1 Puffs Inhalation Every day COPD mixed type Duration: 30 Days Contact prescribing physician if questions or concerns \.br\ Unchanged gabapentin (gabapentin 100 mg Cap) 1 Capsules By Mouth 3 times a day Contact prescribing physician if questions or concerns \.br\ Unchanged levothyroxine (levothyroxine 50 mcg (0.05 mg) Tab) 1 Tablets By Mouth Every day Hypothyroidism Contact prescribing physician if questions or concerns \.br\ Unchanged lorazepam (LORazepam 0.5 mg Tab) 1 Tablets By Mouth Once a day (at bedtime) Insomnia 90 day rx Contact prescribing physician if questions or concerns \.br\ Unchanged melatonin (melatonin 10 mg oral tablet) By Mouth Once a day (at bedtime) Contact prescribing physician if questions or concerns \.br\ Unchanged Misc Prescription (permanent handicap placard) See instructions 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 Contact prescribing physician if questions or concerns \.br\ Unchanged montelukast (montelukast 10 mg Tab) 1 Tablets By Mouth Once a day (in the evening) Asthma, persistent not controlled Contact prescribing physician if questions or concerns \.br\ Unchanged multivitamin with minerals (Multivitamin, Therapeutic w/ Minerals) 1 Tablets By Mouth Every day Contact prescribing physician if questions or concerns \.br\ Unchanged ocular lubricant (Refresh Optive) 1 Drops Both eyes 2 times a day as needed for Dry eyes Contact prescribing physician if questions or concerns \.br\ Unchanged omeprazole (omeprazole 20 mg Cap-DR) 2 Capsules By Mouth Every day GERD (gastroesophageal reflux disease) Contact prescribing physician if questions or concerns \.br\ Unchanged Oxygen (Oxygen - for Home) 2 Liter/minute Nasal Cannula Every day Oxygen - Continuous or Nocturnal Diagnosis: Portable 02 for physician visits, oxygen conservation Contact prescribing physician if questions or concerns \.br\ Unchanged pravastatin (pravastatin 80 mg Tab) 1 Tablets By Mouth Once a day (at bedtime) Contact prescribing physician if questions or concerns \.br\ Unchanged verapamil (verapamil 40 mg oral tablet) 1 Tablets By Mouth 2 times a day Essential hypertension Contact prescribing physician if questions or concerns \.br\ Unchanged zinc sulfate (Zinc) 50 Milligram By Mouth Every day Contact prescribing physician if questions or concerns \.br\ Allergies\.br\ No Known Allergies\.br\ Problems\.br\ Ongoing - Any problem that you are currently receiving treatment for.\.br\ Aortic valve sclerosis\.br\ Arthritis of knee\.br\ Bradycardia\.br\ Centrilobular emphysema\.br\ Cervical arthritis\.br\ Chronic low back pain with left-sided sciatica\.br\ Complete tear of finger ligament\.br\ Cough\.br\ COVID\.br\ Elevated TSH\.br\ Essential hypertension\.br\ Fatigue\.br\ Former smoker\.br\ GERD (gastroesophageal reflux disease)\.br\ Hyperlipidemia\.b r\ Incomplete bladder emptying\.br\ Insomnia\.br\ Knee pain\.br\ Moderate asthma\.br\ Moderate COPD (chronic obstructive pulmonary disease)\.br\ Neck pain\.br\ Neuropathy of finger\.br\ Nocturnal hypoxia\.br\ Oral thrush\.br\ Osteopenia\.br\ Palpitations\.br\ Personal history of COVID-19\.br\ Pollen allergy\.br\ Rib pain\.br\ Somatic dysfunction of cervical region\.br\ Somatic dysfunction of head region\.br\ Somatic dysfunction of lower extremities\.br\ Somatic dysfunction of lumbar region\.br\ Somatic dysfunction of sacral spine\.br\ Somatic dysfunction of thoracic region\.br\ Somatic dysfunction of upper extremities\.br\ Spasm of lumbar paraspinous muscle\.br\ Stress incontinence\.br\ Trapezius muscle spasm\.br\ Urethral stricture\.br\ Urinary frequency\.br\ Weak urinary stream\.br\ Historical - Any problem that you are no longer receiving treatment for.\.br\ Adult BMI 27.0-27.9 kg/sq m\.br\ Aneurysm of internal carotid artery\.br\ Cervical radiculopathy\.br \ Chronic obstructive pulmonary disease with (acute) exacerbation\.br\ Chronic respiratory failure with hypoxia\.br\ COVID-19\.br\ emphysema\.br\ Exertional chest pain\.br\ Exposure to chemical irritant\.br\ H/O: lung cancer\.br\ Hypercholesterole marquise\.br\ Lung cancer\.br\ Malignant neoplasm of upper lobe, left bronchus or lung\.br\ Nicotine dependence\.br\ Nocturia\.br\ JESIKA (obstructive sleep apnea)\.br\ Osteoporosis\.br\ Panacinar emphysema\.br\ Plantar fasciitis of right foot\.br\ Pulmonary nodule, left\.br\ Shortness of breath\.br\ Patient Survey\.br\ You may receive a survey via text or e-mail asking about your office visit. Please share your experience with us by completing your survey. We appreciate your feedback and thank you for choosing us for your care.\.br\ Education Materials\.br\ Heat Therapy\.br\ Heat therapy can help ease sore, stiff, injured, and tight muscles and joints.\.br\ Heat relaxes your muscles. This may help ease your pain and muscle spasms.\.br\ What are the risks?\.br\ If you have any of the following conditions, do not use heat therapy unless your doctor says it is okay. These conditions include:\.br\ ? \.br\ New bruises.\.br\ ? \.br\ Open wounds.\.br\ ? \.br\ Any of these in the area being treated:\.br\ ? \.br\ Healing wounds.\.br\ ? \.br\ Infected skin.\.br\ ? \.br\ Scarred skin.\.br\ ? \.br\ Problems with how blood moves through your body (circulation).\.b r\ ? \.br\ Loss of feeling (numbness) in the part of your body that is being treated.\.br\ ? \.br\ Unusual swelling of the part of the body that is being treated.\.br\ ? \.br\ Blood clots.\.br\ ? \.br\ Diabetes.\.br\ ? \.br\ Heart disease.\.br\ ? \.br\ Cancer.\.br\ ? \.br\ Not being able to communicate pain. This may include young children and pe [facility] Patient Educationon 09-05-19 Patient Education Physical Medicine and Rehabilitation Heat Therapy Heat therapy can help ease sore, stiff, injured, and tight muscles and joints. Heat relaxes your muscles. This may help ease your pain and muscle spasms. What are the risks? If you have any of the following conditions, do not use heat therapy unless your doctor says it is okay. These conditions include: ? New bruises. ? Open wounds. ? Any of these in the area being treated: ? Healing wounds. ? Infected skin. ? Scarred skin. ? Problems with how blood moves through your body (circulation). ? Loss of feeling (numbness) in the part of your body that is being treated. ? Unusual swelling of the part of the body that is being treated. ? Blood clots. ? Diabetes. ? Heart disease. ? Cancer. ? Not being able to communicate pain. This may include young children and people who have problems with their brain function (dementia). How to use heat therapy There are different kinds of heat therapy. These include: ? Moist heat pack. ? Hot water bottle. ? Electric heating pad. ? Heated gel pack. ? Heated wrap. ? Warm water bath. Your doctor will tell you how to use heat therapy. In general, you should: 1. Place a towel between your skin and the heat source. 2. Leave the heat on for 20?30 minutes. Your skin may turn pink. 3. Take off the heat if your skin turns bright red. This is very important. If you cannot feel pain, heat, or cold, you have a greater risk of getting burned. Your doctor may also tell you to take a warm water bath. To do this: 1. Put a non-slip pad in the bathtub to prevent a fall. 2. Fill the bathtub with warm water. 3. Check the water temperature. 4. Soak in the water for 15?20 minutes, or as told by your doctor. 5. Be careful when you stand up after the bath. You may feel dizzy. 6. Pat yourself dry after the bath. Do not rub your skin to dry it. General recommendations for heat therapy ? Be careful not to burn your skin when using heat therapy. High heat or using heat for a long time can cause sanches. ? Do not sleep while using heat therapy. Only use heat therapy while you are awake. ? Check your skin during heat therapy. ? Do not use heat therapy if you have a new injury, especially if you have swelling on the injured area. ? Do not use heat therapy on areas of your skin that are already irritated, such as with a rash or sunburn. ? Do not use heat therapy if your skin turns bright red. Contact a doctor if: ? You have blisters, redness, swelling, or loss of feeling in the area where you use heat therapy. ? You have new pain. ? You have pain that gets worse. Summary ? Heat therapy is the use of heat to help ease sore, stiff, injured, and tight muscles and joints. ? There are different types of heat therapy. Your doctor will tell you which one to use. ? Only use heat therapy while you are awake. ? Watch your skin to make sure you do not get burned while using heat therapy. This information is not intended to replace advice given to you by your health care provider. Make sure you discuss any questions you have with your health care provider. Document Revised: 04/26/2021 Document Reviewed: 04/26/2021 [employer] Patient Education ? [address] [facility] Physician Referralon 024 Physician Referral [phone]. [id number] #1.00TIFF [facility] Consultation Noteon 08-09-19 24 Consultation Note [id number] #1.00TIFF [facility] Family Medicine Office/Clini c Noteon 08-08-2023 Family Medicine Office/Clinic Note Chief Complaint F/U OMT HPI Staff Zachary Hobbs 77 presents today for neck and back pain C/O Here today for OMT. 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 Mena Cardiology Dr. Quezada Dermatology recent referral Vascular surgery [facility] monitoring carotid aneurysm HPI staff / Chief Complaint confirmed with the patient This patient was seen for this complaint previously and treated with manipulation (OMT aka OMM). The patient reports SOME improvement of symptoms after OMT. Today, the patient reports their symptoms are PRESENT and is requesting OMT again. Based on their report of symptoms and my exam findings, I believe OMT is appropriate today. The patient expresses consent for manipulation today. Interval history: has derm appt later this week noticed the thrush started coming back last week just eating yogurt seems to have decreased it June 27, 2023-message Thyroid labs have improved June 25, 2023 last appointment here Recently had to put down her horse who was 24 years old due to some health issues Neck pain 3-10, sharp in the right Never heard from dermatology after her last referral Video visit for COVID on 06/19/2023 Elevated TSH recheck labs Oral thrush clotrimazole troches Insomnia improved on lorazepam From last note: (tag) Review of Systems PHQ Score Initial Depression Screen Score: 0 SCORE Physical Exam Vitals & Measurements HR: 53(Peripheral) BP: 124/58 SpO2: 89% HT: 62 in HT: 157 cm WT: 68.3 kg WT: 150.26 lb BMI: 27.71 PHYSICAL EXAM Constitutional: Vital signs reviewed; ZACHARY HOBBS is well nourished, no acute distress Lungs: Clear to auscultation, non-labored respiration - expansion is symmetric Heart: Normal rate and rhythm, normal peripheral perfusion MSK: Thoracic paraspinal muscles are tight/tender bilaterally; worse on the right Cervical AROM: limited in all vectors right SC is tender to the touch Skin: Warm, dry Neurologic: Awake, alert and oriented Psychiatric: Cooperative, appropriate mood and affect, judgement is appropriate Procedure Osteopathic Manipulation Head: OA dysfunction - treated with BLT and FPR - with objective and subjective improvement Cervical Spine: Reduced range of motion, tenderness at the insertion of the middle scalene on rib 1 on RIGHT - treated with BLT and FPR - with objective and subjective improvement Thoracic Spine: Chronic and acute tissue texture changes of the trapezius, rhomboid on the RIGHT - treated with myofascial, BLT and FPR - with objective and subjective improvement Assessment/Plan 1. Moderate COPD (chronic obstructive pulmonary disease) (J44.9: Chronic obstructive pulmonary disease, unspecified) Chronic Stable Confirmed on PFT Level is moderate former smoker nocturnal hypoxia managed by supplemental Oxygen at night; 2L NC Discussion about exacerbation treatment including albuterol and prednisone burst; 40mg daily x 5 days when needed COPD exacerbation symptoms reviewed today: - increased dyspnea - increased sputum volume/ viscosity - increased sputum purulence Rx to pharmacy Following with Dr. Mena f/u PRN 2. Centrilobular emphysema (J43.2: Centrilobular emphysema) see #1 3. Cervical arthritis (M47.812: Spondylosis without myelopathy or radiculopathy, cervical region) Chronic Stable Likely complicating her neck pain 4. Trapezius muscle spasm (M62.838: Other muscle spasm) Acute on chronic Likely contributing to the above Etiology is likely a combination of sub-optimal mechanics, muscle imbalance, posture vs other Discussed with the patient today Improved with OMM F/u 1 month 5. Somatic dysfunction of head region (M99.00: Segmental and somatic dysfunction of head region) Manipulation described as above Provided with permission by the patient The patient tolerated manipulation well and the procedure went as planned without incident Range of motion and function have improved with objective improvement of signs and subjective improvement of symptoms Patient to follow-up in 3-4 weeks for additional manipulation if needed (or sooner PRN) Discussed the importance of postural exercises 6. Somatic dysfunction of cervical region (M99.01: Segmental and somatic dysfunction of cervical region) 7. Somatic dysfunction of thoracic region (M99.02: Segmental and somatic dysfunction of thoracic region) Adult BMI 27.0-27.9 kg/sq m (Z68.27: Body mass in (more content not included)... [facility] Comment on above: Result Comment: Elec tronically Signed By: Jeff De La Vega DO\.br\Date and Time Signed: 08/08/23 19:22 EST Medication Consenton 024 Medication Consent [id number] #1.00TIFF [facility] Ambulatory Visit Summaryon 0 08-06-2023 Ambulatory Visit Summary ZACHARY HOBBS :1945 Visit Date:08/06/2023 Ambulatory Visit Instructions Your Diagnosis Moderate COPD (chronic obstructive pulmonary disease) Centrilobular emphysema Cervical arthritis Trapezius muscle spasm Somatic dysfunction of head region Somatic dysfunction of cervical region Somatic dysfunction of thoracic region Adult BMI 27.0-27.9 kg/sq m Essential hypertension Hypothyroidism Insomnia Your Care Team Attending Physician - Jeff De La Vega DO Primary Care Physician - Jeff De La Vega DO This Is Your Medications List levothyroxine (levothyroxine 50 mcg (0.05 mg) Tab) lorazepam (LORazepam 0.5 mg Tab) verapamil (verapamil 40 mg oral tablet) Contact prescribing physician if questions or concerns Misc Prescription (permanent handicap placard) Oxygen (Oxygen - for Home) albuterol (Albuterol (Eqv-ProAir HFA) 90 mcg/inh inhalation aerosol) albuterol (albuterol 0.083% Inh Bing 3 mL) aspirin calcium-vitamin D (Calcium 600+D) fluticasone/umeclidi nium/vilanterol (Trelegy Ellipta 100 mcg-62.5 mcg-25 mcg inhalation powder) gabapentin (gabapentin 100 mg Cap) melatonin (melatonin 10 mg oral tablet) montelukast (montelukast 10 mg Tab) multivitamin with minerals (Multivitamin, Therapeutic w/ Minerals) ocular lubricant (Refresh Optive) omeprazole (omeprazole 20 mg Cap-DR) pravastatin (pravastatin 80 mg Tab) zinc sulfate (Zinc) Procedures Performed Cystourethroscopy with dilation of urethral stricture (12/20/2019), Colonoscopy (08/26/2015), Cataract, Colonoscopy, gamma knife radiation to L lung, hysterectomy, Lung biopsy sample, Oophorectomy, Tonsillectomy and adenoidectomy. Discharge Vitals Heart Rate (Peripheral) 53 Blood Pressure 124/58 Height 157 cm Height 62 in Weight 68.3 kg Weight 150.26 lb BMI 27.71 What to do next Scheduled Follow-Up Appointments Saturday 10:30 AM EDT Where: Cardiovascular Services Saturday 11:00 AM EST Where: [facility] [place] [facility] Patient Educationon 08-06-19 24 Patient Education Physical Medicine and Rehabilitation Heat Therapy Heat therapy can help ease sore, stiff, injured, and tight muscles and joints. Heat relaxes your muscles. This may help ease your pain and muscle spasms. What are the risks? If you have any of the following conditions, do not use heat therapy unless your doctor says it is okay. These conditions include: ? New bruises. ? Open wounds. ? Any of these in the area being treated: ? Healing wounds. ? Infected skin. ? Scarred skin. ? Problems with how blood moves through your body (circulation). ? Loss of feeling (numbness) in the part of your body that is being treated. ? Unusual swelling of the part of the body that is being treated. ? Blood clots. ? Diabetes. ? Heart disease. ? Cancer. ? Not being able to communicate pain. This may include young children and people who have problems with their brain function (dementia). How to use heat therapy There are different kinds of heat therapy. These include: ? Moist heat pack. ? Hot water bottle. ? Electric heating pad. ? Heated gel pack. ? Heated wrap. ? Warm water bath. Your doctor will tell you how to use heat therapy. In general, you should: 1. Place a towel between your skin and the heat source. 2. Leave the heat on for 20?30 minutes. Your skin may turn pink. 3. Take off the heat if your skin turns bright red. This is very important. If you cannot feel pain, heat, or cold, you have a greater risk of getting burned. Your doctor may also tell you to take a warm water bath. To do this: 1. Put a non-slip pad in the bathtub to prevent a fall. 2. Fill the bathtub with warm water. 3. Check the water temperature. 4. Soak in the water for 15?20 minutes, or as told by your doctor. 5. Be careful when you stand up after the bath. You may feel dizzy. 6. Pat yourself dry after the bath. Do not rub your skin to dry it. General recommendations for heat therapy ? Be careful not to burn your skin when using heat therapy. High heat or using heat for a long time can cause sanches. ? Do not sleep while using heat therapy. Only use heat therapy while you are awake. ? Check your skin during heat therapy. ? Do not use heat therapy if you have a new injury, especially if you have swelling on the injured area. ? Do not use heat therapy on areas of your skin that are already irritated, such as with a rash or sunburn. ? Do not use heat therapy if your skin turns bright red. Contact a doctor if: ? You have blisters, redness, swelling, or loss of feeling in the area where you use heat therapy. ? You have new pain. ? You have pain that gets worse. Summary ? Heat therapy is the use of heat to help ease sore, stiff, injured, and tight muscles and joints. ? There are different types of heat therapy. Your doctor will tell you which one to use. ? Only use heat therapy while you are awake. ? Watch your skin to make sure you do not get burned while using heat therapy. This information is not intended to replace advice given to you by your health care provider. Make sure you discuss any questions you have with your health care provider. Document Revised: 04/26/2021 Document Reviewed: 04/26/2021 [employer] Patient Education ? [address] [facility] Patient Correspondenceon Patient Correspondence [id number] #1.00TIFF [facility] Patient Correspondenceon Patient Correspondence [id number] [id number] #1.00TIFF [facility] Reminderson 07-04-2023 Reminders - From: Dee Dee Urbina MA To: RENARD - Reminders/Recalls; Sent: 07/04/2023 14:40:15 EST Show up: 09/09/2023 14:40:00 EST Subject: colon recall Due Date/Time: 10/10/2023 14:40:00 EDT Reminder Message [address] Arteaga 10/09/[address] [facility] Physician Referralon 023 Physician Referral [id number] #1.00TIFF [facility] TSH With T4fr Reflexon 06-26 TSH Qn 0.79 m[IU]/L Normal 0.34-5.60 [facility] Comment on above: Performed By: #### 1 [id number] #### [facility] [address] [place] [address] Family Medicine Office/Clini c Noteon 06-25-2023 Family Medicine Office/Clinic Note Chief Complaint F?U OMT HPI Staff Patient here to F/U OMT neck and shoulder pain. 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 The patient reports SOME improvement of symptoms after OMT. Today, the patient reports their symptoms are PRESENT and is requesting OMT again. Based on their report of symptoms and my exam findings, I believe OMT is appropriate today. The patient expresses consent for manipulation today. Today, the patient describes her normal neck pain NECK pain is 3 out of 10 Described as SHARP on the right Interval history: skin lesion referred to dermatology after wellness visit it's smaller but hasn't gone away never heard from derm 06/19/23 - video visit COVID positive 06/17/23 sinus pressure begin paxlovid stop pravastatin until finished with paxlovid f/u on 06/25 as scheduled 06/07/23 - Dr. Ac Brown - Cardiology feeling well recent holter was WNL noted that she did not experience her perceived PVCs (subjectively, flutters ) while connected 176 PVCs in 24 hours period; not clinically relevant patient would like to avoid medication if possible f/u PRN 05/21/23 - AWV From last note: (tag) Interval history: I'm falling apart in the ED, TSH was elevated in the past, has been told her thyroid was borderline she took thyroid medication for a while, didn't feel any different , so I quit taking it I feel like I'm throwing an extra beat I feel it more in the evening and when I go to bed laying on one side seems to cause it more than laying on the other side associated with headaches, and i don't really get headaches cardiology is planning an echo and holter monitor for 2 days no changes to medications at the cardiology office is taking a supplement that includes calcium, magnesium and zinc cardiology recommended to avoid adding magnesium because she already has it in this supplement I'd like to lose a little weight because when I'm less, I can breathe better [1] 1. Palpitations (R00.2: Palpitations) Chronic Stable on BB Following with cardiology defer to cardiology 2. Elevated TSH (R79.89: Other specified abnormal findings of blood chemistry) new to me Unclear etiology Mild elevation Given her mention of weight increase, consider 50mcg Labs in 6 weeks f/u 2 months 3. Essential hypertension (I10: Essential (primary) hypertension) Chronic Stable Asymptomatic Labs up to date Discussed the benefit of sodium reduction Discussed the benefit of weight loss ? 0.5-2.0 mmHg for every 1kg of weight loss DASH diet Encouraged daily exercise with a goal walking more than 25 mins most days of the week Discussed reducing alcohol consumption F/u 3 months 4. Moderate COPD (chronic obstructive pulmonary disease) (J44.9: Chronic obstructive pulmonary disease, unspecified) Chronic Stable No changes today 6. Trapezius muscle spasm (M62.838: Other muscle spasm) consider cyclobenzaprine qHS has not started this after her last appt 7. Complete tear of finger ligament (W52.372J: Unspecified sprain of unspecified finger, initial encounter) in splint today seen by ortho continue with ortho [2] Physical Exam Vitals & Measurements HR: 86(Peripheral) BP: 114/66 SpO2: 94% HT: 62 in HT: 157 cm WT: 66.1 kg WT: 145.42 lb BMI: 26.82 PHYSICAL EXAM Constitutional: Vital signs reviewed; ZACHARY HOBBS is well nourished, no acute distress Lungs: Clear to auscultation, non-labored respiration - expansion is symmetric Heart: Normal rate and rhythm, normal peripheral perfusion MSK: good posture - somewhat reduced AROM of cervical spine in all vectors Skin: Warm, dry Neurologic: Awake, alert and oriented Psychiatric: Cooperative, appropriate mood and affect, judgement is appropriate - fastidious Procedure Osteopathic Manipulation Head: OA dysfunction - treated with BLT and FPR - with objective and subjective improvement Cervical Spine: Reduced range of motion, tenderness at the insertion of the middle scalene on rib 1 on BILAT - treated with BLT and FPR - with objective and subjective improvement Thoracic Spine: Chronic and acute tissue texture changes of the trapezius, rhomboid on the BILAT - treated with myofascial, BLT and FPR - with objective and subjective improvement Assessment/Plan 1. Elevated TSH (R79.89: Other specified abnormal findings of blood chemistry) planning (more content not included)... [facility] Comment on above: Result Comment: Elec tronically Signed By: Jeff De La Vega DO.tanja\Date and Time Signed: 06/25/23 23:32 EST Patient Educationon 06-25-20 Patient Education Physical Medicine and Rehabilitation Heat Therapy Heat therapy can help ease sore, stiff, injured, and tight muscles and joints. Heat relaxes your muscles. This may help ease your pain and muscle spasms. What are the risks? If you have any of the following conditions, do not use heat therapy unless your doctor says it is okay. These conditions include: ? New bruises. ? Open wounds. ? Any of these in the area being treated: ? Healing wounds. ? Infected skin. ? Scarred skin. ? Problems with how blood moves through your body (circulation). ? Loss of feeling (numbness) in the part of your body that is being treated. ? Unusual swelling of the part of the body that is being treated. ? Blood clots. ? Diabetes. ? Heart disease. ? Cancer. ? Not being able to communicate pain. This may include young children and people who have problems with their brain function (dementia). How to use heat therapy There are different kinds of heat therapy. These include: ? Moist heat pack. ? Hot water bottle. ? Electric heating pad. ? Heated gel pack. ? Heated wrap. ? Warm water bath. Your doctor will tell you how to use heat therapy. In general, you should: 1. Place a towel between your skin and the heat source. 2. Leave the heat on for 20?30 minutes. Your skin may turn pink. 3. Take off the heat if your skin turns bright red. This is very important. If you cannot feel pain, heat, or cold, you have a greater risk of getting burned. Your doctor may also tell you to take a warm water bath. To do this: 1. Put a non-slip pad in the bathtub to prevent a fall. 2. Fill the bathtub with warm water. 3. Check the water temperature. 4. Soak in the water for 15?20 minutes, or as told by your doctor. 5. Be careful when you stand up after the bath. You may feel dizzy. 6. Pat yourself dry after the bath. Do not rub your skin to dry it. General recommendations for heat therapy ? Be careful not to burn your skin when using heat therapy. High heat or using heat for a long time can cause sanches. ? Do not sleep while using heat therapy. Only use heat therapy while you are awake. ? Check your skin during heat therapy. ? Do not use heat therapy if you have a new injury, especially if you have swelling on the injured area. ? Do not use heat therapy on areas of your skin that are already irritated, such as with a rash or sunburn. ? Do not use heat therapy if your skin turns bright red. Contact a doctor if: ? You have blisters, redness, swelling, or loss of feeling in the area where you use heat therapy. ? You have new pain. ? You have pain that gets worse. Summary ? Heat therapy is the use of heat to help ease sore, stiff, injured, and tight muscles and joints. ? There are different types of heat therapy. Your doctor will tell you which one to use. ? Only use heat therapy while you are awake. ? Watch your skin to make sure you do not get burned while using heat therapy. This information is not intended to replace advice given to you by your health care provider. Make sure you discuss any questions you have with your health care provider. Document Revised: 04/26/2021 Document Reviewed: 04/26/2021 [employer] Patient Education ? 2022 [employer]. [facility] Medicine Office/Clini c Noteon 06-19-2023 Family Medicine Office/Clinic Note Chief Complaint Pos COVID HPI Staff Video visit. Pt presents with sinus pressure, toothache feeling but has dentures, L side sinus pain when breathing, burning sensation. Pt tested positive for Covid 06/17/23 at home. Pt has taken Benadryl and Mucinex I have reviewed and verified the staff HPI to be accurate for this encounter. History of Present Illness This visit was conducted via two-way, real-time interactive video communications by BEATRIZ LANE CNP from my office using [employer]. The patient was located at their home, located at [address] [place], [place] [id number], with no one else in attendance. A signed authorization for treatment has been obtained via our standard authorization packet or by verbal consent by the patient or their legal sales representative [employer]. The patient's identity and location in [place] has been verified by our office staff. If it is determined that the patient should be evaluated in the clinic, the patient will be directed to the appropriate clinic or venue. A limited physical exam will be conducted reviewing those areas of the body visible via telecommunications. Total time spent preparing the chart, conducting the encounter with the patient and family, and time spent documenting, reviewing, and ordering tests was 20 minutes. All records and visits comply with HIPAA standards. Review of Systems Constitutional: no fever, no chills, no sweats, no weakness Skin: no Jaundice, no rash, no lesions, nopetechiae ENMT: no ear pain, no sore throat, mild congestion, no hoarseness Respiratory: no shortness of breath, no cough, no orthopnea, no wheezing Cardiovascular: no chest pain, no palpitations, no edema Additional ROS info: Except as noted in the above Review of Systems and in the History of Present Illness all other systems have been reviewed and are negative or noncontributory. Physical Exam Vitals & Measurements HR: 106(Peripheral) BP: 120/84 SpO2: 92% HT: 62 in HT: 157 cm WT: 66.4 kg WT: 146.08 lb BMI: 26.94 General: alert, no acute distress Neurological: oriented x 4, LOC appropriate for age speech normal Assessment/Plan 1. COVID-19 virus infection (U07.1: COVID-19) Reviewed VS taken by patient at home Discussed viral infection vs bacterial infection Encouraged to increase fluids Continue antihistamine as needed Encouraged to take OTC zinc Instructed patient to stop the pravastatin until the Paxlovid is completed f/u as scheduled on 06/25 Ordered: nirmatrelvir-ritonav ir, See Instructions, 1 packet(s), Refill(s) 0, 2 tab(s) Oral BID, [facility], 157, cm, 06/19/23 12:49:00 EST, Height/Length Dosing, 66.4, kg, 06/19/23 12:49:00 EST, Weight Dosing Follow-up No qualifying data available Patient Education COVID-19 Problem List/Past Medical History Ongoing Aortic valve sclerosis Arthritis of knee Centrilobular emphysema Chronic low back pain with left-sided sciatica Complete tear of finger ligament Cough Elevated TSH Essential hypertension Fatigue Former smoker GERD (gastroesophageal reflux disease) Hyperlipidemia Incomplete bladder emptying Insomnia Knee pain Moderate asthma Moderate COPD (chronic obstructive pulmonary disease) Neuropathy of finger Nocturnal hypoxia Osteopenia Palpitations Personal history of COVID-19 Pollen allergy Rib pain Screening for breast cancer Screening for diabetes mellitus Somatic dysfunction of cervical region Somatic dysfunction of head region Somatic dysfunction of lower extremities Somatic dysfunction of lumbar region Somatic dysfunction of sacral spine Somatic dysfunction of thoracic region Somatic dysfunction of upper extremities Spasm of lumbar paraspinous muscle Stress incontinence Trapezius muscle spasm Urethral stricture Urinary frequency Weak urinary stream Historical Adult BMI 27.0-27.9 kg/sq m Aneurysm of internal carotid artery Cervical radiculopathy Chronic obstructive pulmonary disease with (acute) exacerbation Chronic respiratory failure with hypoxia COVID-19 emphysema Exertional chest pain Exposure to chemical irritant H/O: lung cancer Hypercholesterolemia Lung cancer Malignant neoplasm of upper lobe, left bronchus or lung Nicotine dependence Nocturia Oral thrush JESIKA (obstructive sleep apnea) Osteoporosis Panacinar emphysema Plantar fasciitis of right foot Pulmonary nodule, left Shortness of breath Procedure/Surgical History Cystourethroscopy with dilation of urethral stricture (12/20/2019), Colonoscopy (08/26/2015), Cataract, Colonoscopy, gamma knife radiation to L lung, hysterectomy, Lung biopsy sample, Oophorectomy, Tonsillectomy and adenoidectomy. Medications Albuterol (Eqv-ProAir HFA) 90 mcg/inh inhalation aerosol, 2 puff(s), Inhalation, q6hr, 6 refills albuterol 0.083% Inh Bing 3 mL, 2.5 mg= 3 mL, Inhalation, q6hr, PRN, 11 refills aspirin, 81 mg, Oral, Daily Calcium 600+D, 1 tab, Oral, Daily cyclobenzaprine 5 (more content not included)... Normal [facility] Comment on above: Result Comment: Elec tronically Signed By: BEATRIZ LANE CNP\.br\Date and Time Signed: 06/19/23 13:21 EST Consent for Treatmenton Consent for Treatment [id number] #1.00TIFF [facility] Heart and Vascular Office/Cl inic Noteon 06-07-2023 Heart and Vascular Office/Clinic Note Chief Complaint here for test results History of Present Illness Zachary Hobbs is a 77-year-old female who presents today for a follow-up evaluation of premature ventricular contractions. The patient reported that she was feeling well. Her most recent Holter monitor reading was within the normal range. She mentioned that her premature ventricular contractions did not manifest during the Holter monitor test. He reported experiencing premature ventricular contractions on the night of 06/06/2023. These contractions are described as a flutter and seem to occur during periods of relaxation. The patient prefers not to take any medications unless the frequency or severity of the premature ventricular contractions increases. She inquired about her mitral valve. She has a history of emphysema. Review of Systems Constitutional: no fever, no sweats, no weakness Skin: no rash, no lesions, no bruising/petechiae ENMT: no sore throat, no congestion, no hoarseness Respiratory: no shortness of breath, no cough, no orthopnea, no wheezing Cardiovascular: no chest pain, Positive for palpitations, no edema Gastrointestinal: no nausea, no vomiting, no diarrhea, no GI bleeding Genitourinary: no anuria/oliguria no hematuria Musculoskeletal: no back pain, no trauma Neurologic: no headache, no dizziness, no numbness, no weakness Psychiatric: no sleeping problems, no irritability, no anxiety/depression. Heme/Lymph: no bleeding tendency, no bruising tendency Allergy/Immunologic: no recurrent infections, no impaired immunity Additional ROS info: Except as noted in the above Review of Systems and in the History of Present Illness all other systems have been reviewed and are negative or noncontributory Physical Exam Vitals & Measurements HR: 81(Peripheral) BP: 138/78 SpO2: 92% HT: 62 in HT: 157 cm WT: 66.4 kg WT: 146.08 lb BMI: 26.94 General: alert, no acute distress Skin: warm, dry intact Head: atraumatic, normocephalic Neck: trachea midline, no JVD, no bruit Eye: normal conjunctiva, sclera clear ENMT: oral mucosa moist Cardiovascular: regular rate and rhythm, no murmur, normal peripheral perfusion Respiratory: lungs CTA, respirations non labored Chest wall: no deformity. Gastrointestinal: soft, non-distended, no tenderness, no guarding. Back: no tenderness, normal ROM, normal alignment. Extremities: no edema, no deformity, no trauma Neurological: oriented x 4, LOC appropriate for age, sensation equal & normal bilaterally, speech normal Psychiatric: cooperative, affect appropriate for age, normal judgement, normal psychiatric thoughts. Assessment/Plan 1. Premature Ventricular Contractions Zachary Hobbs is a 77-year-old female with a remote history of negative cardiac work-up [place] [address] Hidalgo. She has a history of mitral valve prolapse, but the most recent echocardiogram did not show any. She has hypertension, hyperlipidemia, and is well managed. She has some premature ventricular contractions and some palpitations, but they are not bothering her too much. Holter showed only 176 premature ventricular contractions in a 24-hour period, which is not enough to worry about. She would rather not take any medication. We will continue current treatment. Follow-up as needed. Portions of this record may have been created with voice recognition artificial intelligence software, specifically [employer], [employer] and or [employer]. Substitutions may have occurred due to the inherent limitations of voice recognition and artificial intelligence software. ATTESTATION: Documentation services were performed after patient or guardian consented to allow deeplocal to record this visit. LANCE ancillary specialist and provider reviewed before signing. LANCE: Tessa Kiran Follow-up No qualifying data available Problem List/Past Medical History Ongoing Aortic valve sclerosis Arthritis of knee Centrilobular emphysema Chronic low back pain with left-sided sciatica Complete tear of finger ligament Cough Elevated TSH Essential hypertension Fatigue Former smoker GERD (gastroesophageal reflux disease) Hyperlipidemia Incomplete bladder emptying Insomnia Knee pain Moderate asthma Moderate COPD (chronic obstructive pulmonary disease) Neuropathy of finger Nocturnal hypoxia Osteopenia Palpitations Personal history of COVID-19 Pollen allergy Rib pain Screening for breast cancer Screening for diabetes mellitus Somatic dysfunction of cervical region Somatic dysfunction of head region Somatic dysfunction of lower extremities Somatic dysfunction of lumbar region Somatic dysfunction of sacral spine Somatic dysfunction of thoracic region Somatic dysfunction of upper extremities Spasm of lumbar paraspinous muscle Stress incontinence Trapezius muscle spasm Urethral stricture Urinary frequency Weak urinary stream Historical Adult BMI 27. (more content not included)... Normal [facility] Comment on above: Result Comment: Elec tronically Signed By: Kevin ELAINE, Ac Byers\.br\Date and Time Signed: 06/07/23 18:01 EST\.br\Electronically Co-Signed By: Tessa Kiran.br\Date and Time Co-Signed: 06/07/23 17:52 EST Physician Orderon 06-07-2023 Physician Order [id number] 4#1.00TIFF [facility] Immunization Recordson 06-03 Immunization Records [id number] 1#1.00TIFF Normal [facility] CT Chest WO contraston 05-24 IMPRESSION: Spiculated solid left apical lung mass associated with partial destruction of the left second rib and focal pleural thickening which likely represents patient's known malignancy is stable to minimally smaller. No new or enlarging lung nodules. No thoracic lymphadenopathy. Severe centrilobular emphysema with upper lobe predominance. Mild diffuse airway inflammation. Transcribe Date/Time: May 24 2023 9:02A Dictated by: MIKE MAYNARD MD This examination was interpreted and the report reviewed and electronically signed by: MIKE MAYNARD MD on May 24 2023 9:17AM EST Thank you for allowing us to participate in the care of your patient. Should there be any questions regarding this interpretation, please call [phone]. If you are unable to reach us at the number above, please feel free to contact [facility] at [phone]. DIVISION OF RADIOLOGY * * *Final Report* * * DATE OF EXAM: May 23 2023 1:07PM [facility] 0541 - CT CHEST WO IVCON / PROCEDURE REASON: Malignant neoplasm of unspecified part of unspecified bronchus or lung (HCC) * * * * Physician Interpretation * * * * RESULT: EXAMINATION: CHEST CT WITHOUT CONTRAST CLINICAL HISTORY: Left upper lobe adenocarcinoma Technique: Spiral CT acquisition of the chest from the thoracic inlet to the upper abdomen without contrast. MQ: CTCWO_6 CT Radiation dose: Integrated Dose-length product (DLP) for this visit = 194 mGy*cm CT Dose Reduction Employed: Automated exposure control (AEC) Comparison: CT chest, 12/20/2021 RESULT: Limitations: None. Lines, tubes, and devices: None. Lung parenchyma and airways: A spiculated left apical lung mass which abuts the lateral pleura measures approximately 2.5 x 2.2 cm on the current scan, and is stable to minimally smaller on qualitative assessment (measured 2.4 x 2.7 cm on the previous CT). There is associated mild pleural thickening. Stable mild right apical pleural parenchymal scarring, nonspecific and likely postinflammatory. Severe emphysema with upper lobe predominance. Mild diffuse bronchial wall thickening in both lungs. A few small lung nodules such as a 3-4 mm subpleural RUL nodule (image 46), and a 2 mm dense FRANCISCO JAVIER nodule abutting the left major fissure (image 79) are unchanged, possibly benign. No focal consolidations or suspicious new lung nodules. No endobronchial soft tissue densities in the trachea or major bronchi. Pleural space: No pleural effusion. No pleural thickening. Lower neck, lymph nodes, and mediastinum: The imaged thyroid gland is normal. No lymphadenopathy in the supraclavicular, axillary, mediastinal, or hilar regions. Heart, pericardium, and thoracic vessels: The thoracic aorta and main pulmonary artery are normal in caliber. Mild atherosclerotic calcifications of the aortic root, aortic arch and descending thoracic aorta. The cardiac chambers are normal in size. Mild coronary artery atherosclerotic calcifications are noted, although the study is not optimized for coronary assessment. No pericardial effusion or thickening. Bones and soft tissues: No destructive bone lesion. Pathologic fracture with partially destroyed left second rib, stable aside from mild increase in sclerotic changes in the rib, suggestive of posttreatment change. Mild endplate degenerative changes in the thoracic spine. Partly visualized L2 vertebral body intraosseous hemangioma. Chest wall is unremarkable. Upper abdomen: Stable subcentimeter low-density lesions in the hepatic dome and left lobe liver, which are too small to characterize (images 144 and 161). Stable 15 mm exophytic simple cyst in the superior pole of the right kidney. There is an additional curvilinear peripheral 9 mm calcific density in the right kidney (image 206). Mild to moderate atherosclerotic ossifications of the abdominal aorta and splenic artery again noted. Psychiatry Adult Physician (topogram) images: No additional findings. DIVISION OF RADIOLOGY Provider, [facility] - 05/24/2023 * * *Final Report* * * DATE OF EXAM: May 23 2023 1:07PM [facility] 0541 - CT CHEST WO IVCON / PROCEDURE REASON: Malignant neoplasm of unspecified part of unspecified bronchus or lung (HCC) * * * * Physician Interpretation * * * * RESULT: EXAMINATION: CHEST CT WITHOUT CONTRAST CLINICAL HISTORY: Left upper lobe adenocarcinoma Technique: Spiral CT acquisition of the chest from the thoracic inlet to the upper abdomen without contrast. MQ: CTCWO_6 CT Radiation dose: Integrated Dose-length product (DLP) for this visit = 194 mGy*cm CT Dose Reduction Employed: Automated exposure control (AEC) Comparison: CT chest, 12/20/2021 RESULT: Limitations: None. Lines, tubes, and devices: None. Lung parenchyma and airways: A spiculated left apical lung mass which abuts the lateral pleura measures approximately 2.5 x 2.2 cm on the current scan, and is stable to minimally smaller on qualitative assessment (measured 2.4 x 2.7 cm on the previous CT). There is associated mild pleural thickening. Stable mild right apical pleural parenchymal scarring, nonspecific and likely postinflammatory. Severe emphysema with upper lobe predominance. Mild diffuse bronchial wall thickening in both lungs. A few small lung nodules such as a 3-4 mm subpleural RUL nodule (image 46), and a 2 mm dense FRANCISCO JAVIER nodule abutting the left major fissure (image 79) are unchanged, possibly benign. No focal consolidations or suspicious new lung nodules. No endobronchial soft tissue densities in the trachea or major bronchi. Pleural space: No pleural effusion. No pleural thickening. Lower neck, lymph nodes, and mediastinum: The imaged thyroid gland is normal. No lymphadenopathy in the supraclavicular, axillary, mediastinal, or hilar regions. Heart, pericardium, and thoracic vessels: The thoracic aorta and main pulmonary artery are normal in caliber. Mild atherosclerotic calcifications of the aortic root, aortic arch and descending thoracic aorta. The cardiac chambers are normal in size. Mild coronary artery atherosclerotic calcifications are noted, although the study is not optimized for coronary assessment. No pericardial effusion or thickening. Bones and soft tissues: No destructive bone lesion. Pathologic fracture with partially destroyed left second rib, stable aside from mild increase in sclerotic changes in the rib, suggestive of posttreatment change. Mild endplate degenerative changes in the thoracic spine. Partly visualized L2 vertebral body intraosseous hemangioma. Chest wall is unremarkable. Upper abdomen: Stable subcentimeter low-density lesions in the hepatic dome and left lobe liver, which are too small to characterize (images 144 and 161). Stable 15 mm exophytic simple cyst in the superior pole of the right kidney. There is an additional curvilinear peripheral 9 mm calcific density in the right kidney (image 206). Mild to moderate atherosclerotic ossifications of the abdominal aorta and splenic artery again noted. Psychiatry Adult Physician (topogram) images: No additional findings. IMPRESSION IMPRESSION: Spiculated solid left apical lung mass associated with partial destruction of the left second rib and focal pleural thickening which likely represents patient's known malignancy is stable to minimally smaller. No new or enlarging lung nodules. No thoracic lymphadenopathy. Severe centrilobular emphysema with upper lobe predominance. Mild diffuse airway inflammation. Transcribe Date/Time: May 24 2023 9:02A Dictated by: MIKE MAYNARD MD This examination was interpreted and the report reviewed and electronically signed by: MIKE MAYNARD MD on May 24 2023 9:17AM EST Thank you for allowing us to participate in the care of your patient. Should there be any questions regarding this interpretation, please call [phone]. If you are unable to reach us at the number above, please feel free to contact [facility] at [phone]. [facility] CT Chest WO contrastOrdered By: [facility] Provider on 05-24-[address] [facility] [address] CHEST WO IVCONon 05-23-20 CT CHEST WO IVCON * * *Final Report* * * DATE OF EXAM: May 23 2023 1:07PM [facility] 0541 - CT CHEST WO IVCON / PROCEDURE REASON: Malignant neoplasm of unspecified part of unspecified bronchus or lung (HCC) * * * * Physician Interpretation * * * * RESULT: EXAMINATION: CHEST CT WITHOUT CONTRAST CLINICAL HISTORY: Left upper lobe adenocarcinoma Technique: Spiral CT acquisition of the chest from the thoracic inlet to the upper abdomen without contrast. MQ: CTCWO_6 CT Radiation dose: Integrated Dose-length product (DLP) for this visit = 194 mGy*cm CT Dose Reduction Employed: Automated exposure control (AEC) Comparison: CT chest, 12/20/2021 RESULT: Limitations: None. Lines, tubes, and devices: None. Lung parenchyma and airways: A spiculated left apical lung mass which abuts the lateral pleura measures approximately 2.5 x 2.2 cm on the current scan, and is stable to minimally smaller on qualitative assessment (measured 2.4 x 2.7 cm on the previous CT). There is associated mild pleural thickening. Stable mild right apical pleural parenchymal scarring, nonspecific and likely postinflammatory. Severe emphysema with upper lobe predominance. Mild diffuse bronchial wall thickening in both lungs. A few small lung nodules such as a 3-4 mm subpleural RUL nodule (image 46), and a 2 mm dense FRANCISCO JAVIER nodule abutting the left major fissure (image 79) are unchanged, possibly benign. No focal consolidations or suspicious new lung nodules. No endobronchial soft tissue densities in the trachea or major bronchi. Pleural space: No pleural effusion. No pleural thickening. Lower neck, lymph nodes, and mediastinum: The imaged thyroid gland is normal. No lymphadenopathy in the supraclavicular, axillary, mediastinal, or hilar regions. Heart, pericardium, and thoracic vessels: The thoracic aorta and main pulmonary artery are normal in caliber. Mild atherosclerotic calcifications of the aortic root, aortic arch and descending thoracic aorta. The cardiac chambers are normal in size. Mild coronary artery atherosclerotic calcifications are noted, although the study is not optimized for coronary assessment. No pericardial effusion or thickening. Bones and soft tissues: No destructive bone lesion. Pathologic fracture with partially destroyed left second rib, stable aside from mild increase in sclerotic changes in the rib, suggestive of posttreatment change. Mild endplate degenerative changes in the thoracic spine. Partly visualized L2 vertebral body intraosseous hemangioma. Chest wall is unremarkable. Upper abdomen: Stable subcentimeter low-density lesions in the hepatic dome and left lobe liver, which are too small to characterize (images 144 and 161). Stable 15 mm exophytic simple cyst in the superior pole of the right kidney. There is an additional curvilinear peripheral 9 mm calcific density in the right kidney (image 206). Mild to moderate atherosclerotic ossifications of the abdominal aorta and splenic artery again noted. Psychiatry Adult Physician (topogram) images: No additional findings. IMPRESSION: Spiculated solid left apical lung mass associated with partial destruction of the left second rib and focal pleural thickening which likely represents patient's known malignancy is stable to minimally smaller. No new or enlarging lung nodules. No thoracic lymphadenopathy. Severe centrilobular emphysema with upper lobe predominance. Mild diffuse airway inflammation. Transcribe Date/Time: May 24 2023 9:02A Dictated by: MIKE MAYNARD MD This examination was interpreted and the report reviewed and electronically signed by: MIKE MAYNARD MD on May 24 2023 9:17AM EST Thank you for allowing us to participate in the care of your patient. Should there be any questions regarding this interpretation, please call [phone]. If you are unable to reach us at the number above, please feel free to contact [facility] at [phone]. [id number] CN Normal [facility] CT Chest WO contraston 05-23 Radiology Study observation (narrative) [facility] XR hand LT min 3V*on 023 XR hand LT min 3V* [facility] Main [place] [address] [place], [place] [id number] XRay Report Signed Patient: Zachary Garcia MR#: [id number] : 1945 Acct:[id number] Age/Sex: 77 / F ADM Date: 04/30/23 [place] [facility] [place]: Type: [facility] CLI Attending Dr: Anup Mckenna DO Copies to: Anup Mckenna DO Ordering Provider: Anup Mckenna DO Date of Service: 04/30/23 XR/XR hand LT min 3V*: Left hand pain 4 views left hand plain film COMPARISON: None HISTORY: Left hand pain fifth digit injury. ACUTE FINDINGS: Hyperflexion of the fifth distal interphalangeal joint. Suggest mild deformity. Central extensor tendon tear may be present. DEGENERATIVE CHANGE: Extensive first carpometacarpal degenerative changes. Interphalangeal degenerative changes. SOFT TISSUE FINDINGS: Unremarkable JOINT EFFUSION: None POSTOP CHANGES: None BONY MINERALIZATION: Adequate XR/XR hand LT min 3V* IMPRESSION: Hyperflexion of the fifth distal phalangeal joint. Consider extensor tendon tear. Impression dictated by: Saad Conroy M.D.04/30/2023 3:37 PM Dictation Location: [facility]- Transcribed By: [facility] 04/30/23 153 Dictated By: Saad Conroy DO 04/30/23 153 Signed By: 04/30/23 153 Normal [facility] CNOVon 01-02-2023 CNOV Office Visit (NSEVMN) ZACHARY HOBBS ([id number]) 1945 F Date Time Provider Department 01/02/23 1:00 PM [facility], we recorded the following information about you: Pulse Blood pressure Weight Height 88/minute 143/60 62.1 kg 1.575 m Samantha Armstrong PA-C 01/02/2023 1:34 PM Signed [facility] Established Visit Zachary Hobbs [facility]#: [id number] Date of Service: 01/02/2023 Primary Care Provider: Yan Puckett DO, DO FOLLOW UP VISIT Zachary Hobbs is a 77 year old female, who presents for neurologic evaluation following small incidental LEFT cavernous ICA aneurysm. This is 24 month / 2 year PCP: Yan Puckett DO, DO Collaborating Physician: Dr. Asif Reason for visit: Unruptured aneurysm History of Event: Ms. Hobbs is a very nice 77F who presents today for continued evaluation of small LEFT cavernous extradural incidental aneurysm We will review 2 year follow up MRA brain wo. 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 States this began 2-3 days ago. No pattern or trigger -Denies headaches, vision difficulties, weakness. Denies neurologic s/s concerning for stroke BP-well controlled per patient. Average SBP of 112. 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 Medications: Current Outpatient Medications Medication Sig verapamil SR (CALAN SR, ISOPTIN SR) 120 mg CR tablet Take 120 mg by mouth daily at bedtime. doxazosin (CARDURA) 1 mg tablet Take 1 mg by mouth daily at bedtime. cholecalciferol, vitamin D3, (VITAMIN D3 ORAL) Take 50 mcg by mouth once daily. Zinc 50 mg tab Take 50 mg by mouth once daily. MULTIVITAMIN ORAL Take by mouth once daily. gabapentin (NEURONTIN) 100 mg capsule Take 1 capsule by mouth three times daily for 180 days. albuterol (PROVENTIL) 2.5 mg /3 mL (0.083 %) nebulizer solution Use 3 mL via nebulizer every 6 hours as needed. fluticasone (FLONASE) 50 mcg/actuation nasal spray Use 1 [place] in each nostril once daily. cyclobenzaprine (FLEXERIL) 10 mg tablet Take 1 tablet by mouth three times daily as needed. MYRBETRIQ 25 mg Tb24 Take 25 mg by mouth once daily. (Patient not taking: Reported on 12/20/2021 ) STIOLTO RESPIMAT 2.5-2.5 mcg/actuation Inhale 2 Puffs as instructed once daily. simethicone (GAS-X ORAL) Take 1 capsule by mouth four times daily as needed. (Patient not taking: Reported on 12/20/2021 ) budesonide (PULMICORT) 0.5 mg/2 mL nebulizer solution USE 1 VIAL IN NEBULIZER TWICE DAILY (Patient not taking: Reported on 12/02/2020) Omeprazole-Sodium Bicarbonate 20-1.1 mg-gram cap Take 1 capsule by mouth. In the morning Calcium Citrate-Vitamin D3 (CITRACAL+D) 315 mg- 250 unit tab Take 1 tablet by mouth once daily. (Patient not taking: Reported on 12/20/2021 ) Magnesium 250 mg tab Take 250 mg by mouth once daily. (Patient not taking: Reported on 12/20/2021 ) umeclidinium-vilante rol (ANORO ELLIPTA) 62.5-25 mcg/actuation inhaler (Patient not taking: Reported on 12/02/2020 ) fluticasone-sod chl-sod bicarb 50 mcg- 0.9 % ksps Use in the nose. (Patient not taking: Reported on 12/02/2020 ) CARBOXYMETHYLCELLULO SE SODIUM (REFRESH OPHTHALMIC) Use in eyes. pravastatin (PRAVACHOL) 80 mg tablet Take 80 mg by mouth once daily. atenolol (TENORMIN) 50 mg tablet Take 50 mg by mouth once daily. (Patient not taking: Reported on 12/20/2021 ) aspirin, enteric coated (ASPIRIN, ENTERIC COATED) 81 mg EC tablet Take 81 mg by mouth once daily. alendronate (FOSAMAX) 70 mg tablet Take 70 mg by mouth once each week. CYCLOSPORINE (RESTASIS OPHTHALMIC) Use in eyes. (Patient not taking: Reported on 12/20/2021 ) Lysine 1,000 mg tab Take 1 tablet by mouth once daily. (Patient not taking: Reported on 12/20/2021 ) melatonin 10 mg tab Take 10 mg by mouth at bedtime as needed. ALBUTEROL SULFATE (PROAIR HFA INHALATION) Inhale 2 Puffs as instructed as needed. No current facility-administere d medications for this visit. Social History Tobacco Use Sm (more content not included)... Normal [facility] MRA BRAIN WO IVCONon 023 MRA BRAIN WO IVCON * * *Final Report* * * DATE OF EXAM: Jan 02 2023 11:56AM QBM 0272 - MRA BRAIN WO IVCON / PROCEDURE REASON: Carotid aneurysm, left (HCC) * * * * Physician Interpretation * * * * EXAMINATION: MRA BRAIN WO IVCON CLINICAL HISTORY: Two-year follow-up of left cavernous ICA aneurysm. TECHNIQUE: Intracranial 3D diht-ki-cgitlo MRA with post-processing performed at the modality and 2D multiplanar and 3D maximum intensity projections were created, reviewed and archived. MQ: MRAB_4 COMPARISON: None. RESULT: BRAIN: Limited yihb-yn-niikdz images demonstrate no gross acute parenchymal abnormality within the limits acquired sequences. INTRACRANIAL MRA: Stable redemonstration of 1.3 x 1.4 x 1.3 cm (previously 1.3 x 1.4 x 1.3 mm when measured similarly) left saccular cavernous carotid aneurysm. The remainder of the anterior and posterior circulation is free of aneurysm, focal stenosis or occlusion. 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 IMPRESSION: Stable left cavernous ICA aneurysm Supervisor [employer]: DANIEL Transcribe Date/Time: Jan 02 2023 11:59A Dictated by : ALEXSANDRA HENLEY MD This examination was interpreted and the report reviewed and electronically signed by: YULIANA DEL ROSARIO MD on Jan 02 2023 12:14PM EST [id number] CN Normal [facility] No Panel Informationon 01-[address] [facility] [address] CHEST WO IVCONon 12-21-19 22 [facility] Vital Signs Date Time Vital Sign Value Performing Clinician Mary maldonado 07-27-2024 11:45-0500 Body height 157.5 cm Ramana LAY S Work Phone: [facility] 07-27-2024 11:45-0500 Body mass index (BMI) [Ratio] 26.34 kg/m2 Ramana Dolce DPM FACFAS Work Phone: [facility] 07-27-2024 11:45-0500 Body weight 65.32 kg Ramana Miller DPM FACFA S Work Phone: [facility] 07-27-2024 11:45-0500 Diastolic blood pressure 72 mm[Hg] Ramana Miller DPM FACFAS Work Phone: [facility] 07-27-2024 11:45-0500 Heart rate 84 /min Ramana Miller DPM FACFA S Work Phone: [facility] 07-27-2024 11:45-0500 Systolic blood pressure 125 mm[Hg] Ramana Miller DPM FACFAS Work Phone: [facility] 07-20-2024 07:56-0500 Body height 157.5 cm Kathi Castellon MD Work Phone: [facility] 07-20-2024 07:56-0500 Body mass index (BMI) [Ratio] 26.34 kg/m2 Kathi Castellon MD Work Phone: [facility] 07-20-2024 07:56-0500 Body weight 65.32 kg Kathi Castellon MD Work Phone: [facility] 07-20-2024 07:56-0500 Diastolic blood pressure 70 mm[Hg] Kathi Castellon MD Work Phone: [facility] 07-20-2024 07:56-0500 Heart rate 92 /min Kathi Castellon MD Work Phone: [facility] 07-20-2024 07:56-0500 Systolic blood pressure 124 mm[Hg] Kathi Castellon MD Work Phone: [facility] 05-18-2024 07:51-0500 Body height 157.5 cm Kathi Castellon MD Work Phone: [facility] 05-18-2024 07:51-0500 Body mass index (BMI) [Ratio] 26.34 kg/m2 Kathi Castellon MD Work Phone: [facility] 05-18-2024 07:51-0500 Body weight 65.32 kg Kathi Castellon MD Work Phone: [facility] 05-18-2024 07:51-0500 Diastolic blood pressure 78 mm[Hg] Kathi Castellon MD Work Phone: [facility] 05-18-2024 07:51-0500 Systolic blood pressure 126 mm[Hg] Kathi Castellon MD Work Phone: [facility] 03-16-2024 07:57-0400 Body height 157.5 cm Kathi Castellon MD Work Phone: [facility] 03-16-2024 07:57-0400 Body mass index (BMI) [Ratio] 26.7 kg/m2 Kathi Castellon MD Work Phone: [facility] 03-16-2024 07:57-0400 Body weight 66.22 kg Kathi Castellon MD Work Phone: [facility] 03-16-2024 07:57-0400 Diastolic blood pressure 64 mm[Hg] Kathi Castellon MD Work Phone: [facility] 03-16-2024 07:57-0400 Systolic blood pressure 126 mm[Hg] Kathi Castellon MD Work Phone: [facility] 01-02-2023 13:02-0400 Body height 157.5 cm Samantha Szymanskius PA-C Work Phone: [facility] 01-02-2023 13:02-0400 Body weight 62.14 kg Samantha Dk PA-C Work Phone: [facility] 01-02-2023 13:02-0400 Diastolic blood pressure 60 mm[Hg] Samantha Dk PA-C Work Phone: [facility] 01-02-2023 13:02-0400 Heart rate 88 /min Samantha Szymanskius PA-C Work Phone: [facility] 01-02-2023 13:02-0400 SaO2% (BldA) [Mass fraction] 95 % Samantha Armstrong PA-C Work Phone: [facility] 01-02-2023 13:02-0400 Systolic blood pressure 143 mm[Hg] Samantha Armstrong PA-C Work Phone: [facility] Encounters Encounter Date Encounter Type Care Provider Facility Start: 05-27-2025 ambulatory Jeff Casimiro De La Vega Facili ty:[facility] Start: 10-08-2024 ambulatory DO Jeff Casimiro De La Vega Fac ility:[facility] Start: 09-14-2024 End: 09-14-2024 ambulatory KATHI CASTELLON Not Available Start: 09-08-2024 End: 09-08-2024 ambulatory Magdalena Cruz Facility:[facility] Start: 09-03-2024 End: 09-03-2024 ambulatory DO Jeff De La Vega [place] Start: 09-01-2024 End: 09-01-2024 ambulatory DO Jeff De La Vega Facility:[facility] Start: 08-11-2024 End: 08-11-2024 ambulatory DO Jeff Casimiro De La Vega [facility] Start: 08-06-2024 End: 08-06-2024 ambulatory DO Jeff Casimiro De La Vega [facility] Start: 08-04-2024 End: 08-04-2024 ambulatory Jeff Casimiro De La Vega Facility:[facility] Start: 07-30-2024 End: 07-30-2024 ambulatory Jeff Casimiro De La Vega [place] Start: 07-27-2024 End: 07-27-2024 Bamboo flowsheet Ramana Miller DPM FACFAS Work Phone: [facility] Start: 07-27-2024 End: 07-27-2024 Bamboo flowsheet Ramana Miller DPM FACFAS Work Phone: [facility] Start: 07-27-2024 End: 07-27-2024 Patient encounter procedure Ramana Miller DPM FACFAS Work Phone: [facility] Comment on above: Onychomycosis (Prima ry Dx); Pain in right toe(s); Pain in left toe(s) Start: 07-27-2024 End: 07-27-2024 ambulatory RAMANA MILLER Not Available Start: 07-20-2024 End: 07-20-2024 Bamboo flowsheet Kathi Castellon MD Work Phone: [facility] Start: 07-20-2024 End: 07-20-2024 Bamboo flowsheet Kathi Castellon MD Work Phone: [facility] Start: 07-20-2024 End: 07-20-2024 Office outpatient visit 15 minutes Kathi Castellon MD Work Phone: [facility] Comment on above: Tongue lesion (Prima ry Dx) Start: 07-20-2024 End: 07-20-2024 ambulatory KATHI H TIMMIS Not Available Start: 07-07-2024 End: 07-07-2024 ambulatory Jeff De La Vega Facility:[facility] Start: 05-26-2024 End: 05-26-2024 ambulatory DO Jeff De La Vega Facility:[facility] Start: 05-18-2024 End: 05-18-2024 Bamboo flowsheet Kathi Castellon MD Work Phone: [facility] Start: 05-18-2024 End: 05-18-2024 Bamboo flowspeewee Castellon MD Work Phone: [facility] Start: 05-18-2024 End: 05-18-2024 Office outpatient visit 15 minutes Kathi Castellon MD Work Phone: [facility] Comment on above: Tongue lesion (Prima ry Dx) Start: 05-18-2024 End: 05-18-2024 ambulatory KATHI H TIMMIS Not Available Start: 05-15-2024 End: 05-15-2024 ambulatory Jeff Casimiro De La Vega [place] Start: 04-20-2024 End: 04-20-2024 ambulatory XXXX NONE Facility:[facility] Start: 04-08-2024 End: 07-07-2024 ambulatory Bashar X [place] Facility[place] Start: 03-27-2024 End: 03-27-2024 ambulatory Irma Martell Facility[place] Start: 03-25-2024 End: 03-25-2024 ambulatory Bashar X [place] Facility[place] Start: 03-16-2024 End: 03-16-2024 Bamboo flowspeewee [facility]ellon MD [facility] Start: 03-16-2024 End: 03-16-2024 Bamboo flowspeewee Castellon MD [facility] Start: 03-16-2024 End: 03-16-2024 Office outpatient visit 15 minutes Kathi Castellon MD [facility] Comment on above: Tongue lesion (Prima ry Dx) Start: 03-16-2024 End: 03-16-2024 ambulatory KATHI H TIMMIS Not Available Start: 02-28-2024 End: 02-28-2024 ambulatory Bashar X [place] Facility[place] Start: 02-21-2024 End: 02-21-2024 ambulatory Irma Martell Facility:[facility] Start: 02-17-2024 End: 02-17-2024 ambulatory XXXX NONE Facility:[facility] Start: 02-12-2024 End: 02-12-2024 ambulatory RAMANA MILLER Not Available Start: 02-07-2024 End: 02-07-2024 ambulatory Bashar X [place] Facility[place] Start: 01-17-2024 End: 01-17-2024 ambulatory DO Jeff De La Vega Facility:[facility] Start: 01-13-2024 End: 01-13-2024 ambulatory KATHI H TIMMIS Not Available Start: 12-27-2023 End: 12-27-2023 ambulatory KATHI H TIMMIS Not Available Start: 12-20-2023 End: 12-20-2023 ambulatory COURTNEY TAPIA Not Available Start: 12-17-2023 End: 12-17-2023 ambulatory DO Jeff De La Vega II Work Phone: [facility] Work Phone: Start: 12-17-2023 End: 12-17-2023 Departed Referred DO Jeff De La Vega II Work Phone: [facility] Start: 12-11-2023 End: 12-11-2023 ambulatory DESTINATION SIGN REPAIRER-C LAUREN ROBBINS Facility:[facility] Start: 11-28-2023 End: 11-28-2023 ambulatory KATHI ANDERSENS Not Available Start: 11-27-2023 End: 11-27-2023 ambulatory RAMANA D DOLCE Not Available Start: 11-11-2023 End: 11-11-2023 ambulatory MILAD A FELTER Not Available Start: 10-23-2023 End: 10-23-2023 ambulatory DO Jeff De La Vega Facility:[facility] Start: 10-02-2023 End: 10-02-2023 ambulatory RAMANA D DOLCE Not Available Start: 09-17-2023 End: 09-17-2023 ambulatory RAMANA D DOLCE Not Available Start: 09-05-2023 End: 09-05-2023 ambulatory DO Jeff Casimiro De La Vega Facility:[facility] Start: 08-08-2023 Bamboo flowsheet Milad A Fel ter CONCEPTOR-DRUM STOCK CLERK Work Phone: [facility] Start: 08-08-2023 Bamboo flowsheet Milad A Fel ter CONCEPTOR-DRUM STOCK CLERK Work Phone: [facility] Start: 08-08-2023 End: 08-08-2023 Office outpatient new 20 minutes Milad A Felter CONCEPTOR-DRUM STOCK CLERK Work Phone: [facility] Comment on above: Seborrheic keratosis (Primary Dx) Start: 08-06-2023 End: 08-06-2023 ambulatory DO Jeff De La Vega Facility:[facility] Start: 07-04-2023 ambulatory 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-C LAUREN ROBBINS Facility:[facility] Start: 06-25-2023 End: 06-25-2023 ambulatory DO Jeff De La Vega [facility] Start: 06-25-2023 End: 06-25-2023 ambulatory DO Jeff De La Vega Facility:[facility] Start: 06-19-2023 End: 06-19-[address] Facility:[facility] Start: 06-19-2023 End: 06-19-[address] Facility:[facility] Start: 06-07-2023 End: 06-07-2023 ambulatory XXXX NONE Facility[place] Start: 05-27-2023 End: 05-28-2023 ambulatory Raven Francis DONNA.DRUM STOCK CLERK Work Phone: Radiation Oncology Comment on above: Adenocarcinoma, lung , left (HCC) (Primary Dx) Start: 05-27-2023 End: 05-27-2023 Telemedicine consultation with patient Raven Francis CONCEPTOR.DRUM STOCK CLERK Work Phone: [facility] Start: 05-23-2023 End: 05-23-2023 ambulatory ANUP CALVILLO Facility:[facility] Start: 05-23-2023 End: 05-23-2023 Subsequent hospital visit by physician Arrival Time Radiology Work Phone: Radiology Pet CT Comment on above: Malignant neoplasm o f unspecified part of unspecified bronchus or lung (HCC) [C34.90] Start: 04-30-2023 End: 04-30-2023 Patient encounter procedure DO Anup Mckenna Work Phone: [facility] Start: 04-30-2023 End: 04-30-2023 ambulatory Anup Mckenna [facility] Work Phone: Start: 01-02-2023 End: 01-02-2023 Subsequent hospital visit by physician Mri Main Ca (1.5t) Work Phone: Radiology Comment on above: Carotid aneurysm, 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] Start: 01-02-2023 End: 01-02-2023 Patient encounter procedure Samantha Armstrong PA-C Work Phone: [facility] Comment on above: Aneurysm (HCC) (Prim claudio Dx) Start: 01-02-2023 End: 01-02-2023 ambulatory SELF Facility:[facility] Start: 01-02-2023 End: 01-02-2023 Subsequent hospital visit by physician Mri 3 Radio Main Q (I-Stat/1.5t/3t) Work Phone: MRI Q Comment on above: Carotid aneurysm, 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] Start: 09-25-2022 Orders Only Jewel Asif MD Work Phone: [facility] Comment on above: Carotid aneurysm, le ft (HCC) (Primary Dx) Start: 12-20-2021 End: 12-20-2021 Subsequent hospital visit by physician Ct 2 Main Qb (I-Stat) Radiology Comment on above: Malignant neoplasm o f unspecified part of unspecified bronchus or lung (HCC) [C34.90] Start: 10-17-2021 ambulatory Anup evangelista MD Work Phone: Radiation Oncology Comment on above: CT Scan Procedures Date Procedure Procedure Detail Performing Clinician Start: 05-23-2023 Ct thorax w/o contra st material Deysi Blakely MD Work Phone: Start: 04-30-2023 Plain X-ray of left hand DO Anup Mckenna Work Phone: Start: 01-02-2023 Mra head w/o contrst material Tami Gutierrez APRN.DRUM STOCK CLERK Work Phone: Start: 12-20-2021 Ct thorax w/o contra st material Anup Calvillo MD Work Phone: Start: 12-20-2021 Adult depression screening assessment Ct (I-Stat) Start: 11-18-2020 Adult depression screening assessment Anup Calvillo MD Work Phone: Plan of Treatment Date Care Activity Detail Author Start: 03-22-2025 End: 03-22-2025 Patient encounter procedure 03/22/2025 8:00 AM EDT [facility] [address] [place] [address] Kathi Castellon MD [address] [facility] [address] [place] [address] [facility] Start: 01-18-2025 End: 01-18-2025 Patient encounter procedure 01/18/2025 8:00 AM EDT Office Visit [facility] [address] [place] [id number] Kathi Castellon MD [address] [facility] [address] [place] [address] [facility] Start: 11-16-2024 End: 11-16-2024 Patient encounter procedure 11/16/2024 8:00 AM EDT Office Visit [facility] [place] [address] [place] [address] Kathi Castellon MD [address] [facility] [address] [place] [address] [facility] Start: 11-09-2024 End: 11-09-2024 Patient encounter procedure 11/09/2024 1:10 PM EDT Office Visit [facility] [address] [place] [address] Milad Coates, CONCEPTOR-DRUM STOCK CLERK [address] [place] [address] [facility] Start: 10-05-2024 End: 10-05-2024 Patient encounter procedure 10/05/2024 11:50 AM EDT Procedure Visit [facility] [address] [facility] [place] [id number] Ramana Miller, DPM FACFAS [address] [place] [address] [facility] Start: 09-14-2024 End: 09-14-2024 Patient encounter procedure 09/14/2024 8:00 AM EDT Office Visit [facility] [place] [address] [place] [address] Kathi Castellon MD [address] [facility] [address] [place], [place] [id number] [facility] Start: 07-27-2024 End: 07-27-2024 Patient encounter procedure [facility] Comment on above: Arrived Start: 07-20-2024 End: 07-20-2024 Patient encounter procedure [facility] Comment on above: Arrived Start: 05-18-2024 End: 05-18-2024 Patient encounter procedure [facility] Comment on above: Arrived Start: 04-22-2024 End: 04-22-2024 Patient encounter procedure 04/22/2024 1:30 PM EDT Procedure Visit [facility] [address] [place] [phone] Ramana Miller, DPM FACFAS [address] [place] [address] [facility] Start: 03-16-2024 End: 03-16-2024 Patient encounter procedure 03/16/2024 8:00 AM EDT Office Visit [facility] [address] [place] [address] Kathi Castellon MD [address] [facility] [address] [place] [address] Arrived [facility] Comment on above: Arrived Start: 03-08-2024 Covid-19 Vaccine ( season) Covid-19 Vaccine ( season) [facility] Start: 03-08-2024 Influenza vaccination Influenza Vacc ine (#1) [facility] Start: 11-25-2023 End: 02-25-2024 Ct thorax w/o contrast material CT CHEST WO IVCON Radiology Routine Adenocarcinoma, lung, left (HCC) Expected: 11/25/2023 (Approximate), Expires: 02/25/2024 [facility] Work Phone: Comment on above: Expected: 11/25/2023 (Approximate), Expires: 02/25/2024 Start: 11-11-2023 End: 11-11-2023 Patient encounter procedure 11/11/2023 1:40 PM EDT Office Visit [facility] [address] [place] [address] Milad Coates, CONCEPTOR-DRUM STOCK CLERK [address] [place] [address] [facility] Start: 09-17-2023 End: 09-17-2023 Patient encounter procedure 09/17/2023 11:10 AM EDT Procedure Visit [facility] [address] [facility] [place] [id number] Ramana Miller, DPM FACFAS [address] [facility] [place] [address] [facility] Start: 07-08-2023 Advance Directive Discussion Advance Directive Discussion [facility] Start: 03-08-2023 Covid-19 Vaccine () Covid-19 Vaccine () [facility] Start: 12-20-2022 Adult depression screening assessment DEPRESSION SCREENING [facility] Start: 11-05-2022 End: 10-25-2023 Mra head w/o contrst material MRA BRAIN WO IVCON Radiology Routine Carotid aneurysm, left (HCC) Expected: 11/05/2022 (Approximate), Expires: 10/25/2023 [facility] Work Phone: Comment on above: Expected: 11/05/2022 (Approximate), Expires: 10/25/2023 Start: 07-08-2022 ADVANCE DIRECTIVE DISCUSSION ADVANCE DIRECTIVE DISCUSSION [facility] Start: 07-08-2022 DEPRESSION ASSESSMENT DEPRESSION ASS ESSMENT [facility] Start: 03-08-2022 Influenza vaccination [facility] Start: 12-05-2021 COVID-19 VACCINE (4 - Booster for Pfizer series) COVID-19 VACCINE (4 - Booster for Pfizer series) [facility] Start: 05-14-2022 Adult depression screening assessment DEPRESSION SCREENING [facility] Start: 10-02-2021 COVID-19 VACCINE (4 - Booster for Pfizer series) COVID-19 VACCINE (4 - Booster for Pfizer series) [facility] Start: 07-08-2021 ADVANCE DIRECTIVE DISCUSSION ADVANCE DIRECTIVE DISCUSSION [facility] Start: 03-01-2021 COVID-19 VACCINE (3 - Booster for Pfizer series) COVID-19 VACCINE (3 - Booster for Pfizer series) [facility] Start: 08-16-2019 DIABETES SCREEN DIABETES SCREEN [facility] Start: 08-16-2019 Diabetes Screening Diabetes Screenin g [facility] Start: 04-18-2017 Pneumococcal Vaccine : 65+ (2 - PPSV23 or PCV20) Pneumococcal Vaccine: 65+ (2 - PPSV23 or PCV20) [facility] Start: 04-18-2017 Pneumococcal Vaccine : 65+ (2 of 2 - PPSV23 or PCV20) Pneumococcal Vaccine: 65+ (2 of 2 - PPSV23 or PCV20) [facility] Start: 2011 BONE DENSITY BONE DENSITY [facility] Start: 2011 Bone Density Screening Bone Density Screening [facility] Start: 2011 PNEUMOCOCCAL: 65+ (1 - PCV) PNEUMOCOCCAL: 65+ (1 - PCV) [facility] Start: 2011 PNEUMOVAX AGE 65 AND OVER WITH 5YR LOOKBACK (#1) PNEUMOVAX AGE 65 AND OVER WITH 5YR LOOKBACK (#1) [facility] Start: 2011 Screening for osteoporosis Bone Density Screening [facility] Start: 2006 RSV Vaccine (1 - 1-d ose 60+ series) RSV Vaccine (1 - 1-dose 60+ series) [facility] Start: 1996 SHINGRIX VACCINE (1 of 2) SHINGRIX VACCINE (1 of 2) [facility] Start: 1991 COLOGUARD (FIT-DNA) COLOGUARD (FIT-D NA) [facility] Start: 1991 Colonoscopy COLONOSCOPY [facility] Start: 1991 COLORECTAL CANCER SCREENING COLORECTAL CANCER SCREENING [facility] Start: [address] COLONOGRAPHY [facility] Start: 1991 FECAL OCCULT BLOOD FECAL OCCULT BLOO D [facility] Start: 1991 LIPID SCREEN LIPID SCREEN [facility] Start: 1991 SIGMOIDOSCOPY SIGMOIDOSCOPY [facility] Start: 1965 SHINGRIX VACCINE (1 of 2) SHINGRIX VACCINE (1 of 2) [facility] Start: 1965 Urine microalbumin profile [facility] Start: 1964 Anxiety Screening Anxiety Screening [facility] Start: 1964 Depression Screening Depression Scre ening [facility] Start: 1964 HEPATITIS C SCREENING HEPATITIS C [facility] Start: 1964 Hepatitis C screening Hepatitis C [facility] Start: 1952 PNEUMOCOCCAL: 65+ (1 - PCV) PNEUMOCOCCAL: 65+ (1 - PCV) [facility] Immunizations Immunization Date Immunization Notes Care Provider Fa [facility] 04-23-2023 influenza virus vacc ine, unspecified formulation Kathi Castellon MD Work Phone: [facility] 04-07-2016 influenza virus vacc ine, unspecified formulation Anup Calvillo MD Work Phone: [facility] Payers Date Payer Category Payer Unknown [id number] 2023 Self-pay 2021 Medicare DEVOTED MEDICARE DEVOTED HEALTH [id number] 2021-Present [phone] [address] [place] [address] O [id number] 2021 Medicare DEVOTED MEDICARE DEVOTED HEALTH [place] [id number] 2021-Present [phone] [address] [place] [address] [facility] [id number] 2021 Medicare (Managed Care) 1.2. [id number] 2021 Unknown [id number] 1.13.693.2 .[id number] 2021 Medicare [id number] 2019 Unknown ANTHEM BLUE CROS S AND BLUE SHIELD ANTHEM ANDREIBLUE HMO [id number] 2019-Present [phone] [address] [place] [address] O [id number] [id number] .7.3.329023.315 1946 Unknown [id number] 2.16.840.1.881067.3.579.2 .727 1946 Unknown [id number] 2.16.840.1.727884.3.579.2 .1946 Unknown [id number] 2.16.840.1.242977.3.579.2 .1946 Unknown [id number] 2.16.840.1.737402.3.579.2 .72 1946 Unknown [id number] 2.16.840.1.291569.3.579.2 .727 1946 Unknown [id number] 2.16.840.1.205061.3.579.2 .727 1946 Unknown [id number] 2.16.840.1.670165.3.579.2 .1946 Unknown [id number] 2.16.840.1.393971.3.579.2 1946 Unknown [id number] 2.16.840.1.163914.3.579.2 .727 1946 Unknown [id number] 2.16.840.1.653718.3.579.2 1946 Unknown [id number] 2.16.840.1.217915.3.579.2 .727 1946 Unknown [id number] 2.16.840.1.173899.3.579.2 .7 1946 Unknown [id number] 2.16.840.1.256105.3.579.2 .1946 Unknown [id number] 2.16.840.1.429510.3.579.2 1946 Unknown [id number] 2.16.840.1.132187.3.579.2 1946 Unknown [id number] 2.16.840.1.307086.3.579.2 1946 Unknown [id number] 2.16.840.1.272110.3.579.2 1946 Unknown [id number] 2.16.840.1.895733.3.579.2 1946 Unknown [id number] 2.16.840.1.125465.3.579.2 1946 Unknown [id number] 2.16.840.1.658500.3.579.2 1946 Unknown [id number] 2.16.840.1.053784.3.579.2 1946 Unknown [id number] 2.16.840.1.741653.3.579.2 1946 Unknown [id number] 2.16.840.1.319295.3.579.2 1946 Unknown [id number] 2.16.840.1.994361.3.579.2 1946 Unknown [id number] 2.16.840.1.408713.3.579.2 1946 Unknown [id number] 2.16.840.1.824606.3.579.2 1946 Unknown [id number] 2.16.840.1.547699.3.579.2 1946 Unknown [id number] 2.16.840.1.468951.3.579.2 .727 1946 Unknown [id number] 2.16.840.1.140063.3.579.2 .72 1946 Unknown [id number] 2.16.840.1.096372.3.579.2 .72 1946 Unknown [id number] 2.16.840.1.261484.3.579.2 .72 1946 Unknown [id number] 2.16.840.1.106387.3.579.2 .1258 1946 Unknown [id number] 2.16.840.1.303144.3.579.2 .1258 1946 Unknown [id number] 2.16.840.1.325815.3.579.2 .1258 1946 Unknown [id number] 2.16.840.1.018187.3.579.2 .1258 1946 Unknown [id number] 2.16.840.1.542551.3.579.2 .1258 1946 Unknown [id number] 2.16.840.1.165048.3.579.2 .1258 1946 Unknown [id number] 2.16.840.1.715878.3.579.2 .1258 1946 Unknown [id number] 2.16.840.1.625062.3.579.2 .1258 1946 Unknown [id number] 2.16.840.1.469755.3.579.2 .1258 1946 Unknown [id number] 2.16.840.1.812146.3.579.2 .1258 1946 Unknown [id number] 2.16.840.1.148435.3.579.2 .1258 1946 Unknown [id number] 2.16.840.1.792443.3.579.2 .1259 1946 Unknown [id number] 2.16.840.1.512377.3.579.2 .1259 1946 Unknown [id number] 2.16.840.1.656330.3.579.2 .1259 Unknown [id number] 2.16.840.1.473383.3.579.2 .531 Unknown [id number] 2.16.840.1.036725.3.579.2 .531 Social History Date Type Detail Facility Start: 08-15-2016 End: 08-05-2017 Tobacco smoking status NHIS Ex-smoker [facility] Work Phone: Start: 07-08-1963 End: 07-08-2005 History of tobacco use Current smoker [facility] Work Phone: Start: 07-08-1963 End: 07-08-2005 History of tobacco use Cigarette Smoker [facility] Work Phone: Start: 08-15-2016 End: 07-20-2024 Cigarettes smoked current (pack per day) - Reported 2 [facility] Start: 08-15-2016 End: 11-28-2022 Tobacco use and exposure Smokeless tobacco non-user [facility] Work Phone: Start: 12-02-2020 End: 12-20-2021 Alcohol intake Current drinker of alcohol (finding) [facility] Start: 05-26-2020 History SDOH Alcohol Frequency 2 [facility] Start: 05-26-2020 History SDOH Alcohol Std Drinks 1 [facility] Start: 11-23-2019 History SDOH Alcohol Comment occasional wine [facility] Start: 1945 Sex Assigned At Female [facility] Start: 12-10-2021 End: 12-20-2021 Exposure to SARS-CoV-2 (event) Not sure [facility] Start: 05-26-2020 End: 07-20-2024 Alcohol Use Disorder Identification Test - Consumption [AUDIT-C] [facility] How often to you hav e a drink containing alcohol? Monthly or less [facility] How many standard dr inks containing alcohol do you have on a typical day? 1 or 2 [facility] How often do you hav e 6 or more drinks on 1 occasion? Never [facility] Adult Depression Screening Assessment 0 [facility] Start: 05-20-2019 Gender identity Identifies as female gender (finding) [facility] Start: 05-20-2019 Sexual orientation Heterosexual (finding) [facility] Start: 11-28-2022 Tobacco smoking status NHIS Never smoked tobacco [facility] Start: 07-29-2023 End: 07-20-2024 Alcohol intake Lifetime non-drinker (finding) [facility] Clinical Notes 12-20-2021 to 09-08-2024 Ramana Miller DPM FACFAS - 07/27/2024 11:50 AM Olesya Castellon MD - 07/20/2024 8:00 AM Olesya Castellon MD - 05/18/2024 8:00 AM Olesya Castellon MD - 03/16/2024 8:00 AM EDT Note Date & Type Note Facility 09-08-2024 Note Patient Education ENT Cough, Adult A cough helps to clear your throat and lungs. It may be a sign of an illness or another condition. A short-term (acute) cough may last 2?3 weeks. A long-term (chronic) cough may last 8 or more weeks. Many things can cause a cough. They include: ??? Illnesses such as: ? An infection in your throat or lungs. ? Asthma or other heart or lung problems. ? Gastroesophageal reflux. This is when acid comes back up from your stomach. ??? Breathing in things that bother (irritate) your lungs. ??? Allergies. ??? Postnasal drip. This is when mucus runs down the back of your throat. ??? Smoking. ??? Some medicines. Follow these instructions at home: Medicines ??? Take [id number] and prescription medicines only as told by your doctor. ??? Talk with your doctor before you take cough medicine (cough suppressants). Eating and drinking ??? Do not drink alcohol. ??? Do not drink caffeine. ??? Drink enough fluid to keep your pee (urine) pale yellow. Lifestyle ??? Stay away from cigarette smoke. ??? Do not smoke or use any products that contain nicotine or tobacco. If you need help quitting, ask your doctor. ??? Stay away from things that make you cough. These may include perfume, candles, cleaning products, or campfire smoke. General instructions ??? Watch for any changes to your cough. Tell your doctor about them. ??? Always cover your mouth when you cough. ??? If the air is dry in your home, use a cool mist vaporizer or humidifier. ??? If your cough is worse at night, try using extra pillows to raise your head up higher while you sleep. ??? Rest as needed. Contact a doctor if: ??? You have new symptoms. ??? Your symptoms get worse. ??? You cough up pus. ??? You have a fever that does not go away. ??? Your cough does not get better after 2?3 weeks. ??? Cough medicine does not help, and you are not sleeping well. ??? You have pain that gets worse or is not helped with medicine. ??? You are losing weight and do not know why. ??? You have night sweats. Get help right away if: ??? You cough up blood. ??? You have trouble breathing. ??? Your heart is beating very fast. These symptoms may be an emergency. Get help right away. Call 911. ??? Do not wait to see if the symptoms will go away. ??? Do not drive yourself to the hospital. This information is not intended to replace advice given to you by your health care provider. Make sure you discuss any questions you have with your health care provider. Document Revised: 02/22/2023 Document Reviewed: 02/22/2023 [employer] Patient Education ? 2023 [employer] Infectious Disease Viral Respiratory Infection A viral respiratory infection is an illness that affects parts of the body that are used for breathing. These include the lungs, nose, and throat. It is caused by a germ called a virus. Some examples of this kind of infection are: ??? A cold. ??? The flu (influenza). ??? A respiratory syncytial virus (RSV) infection. What are the causes? This condition is caused by a virus. It spreads from person to person. You can get the virus if: ??? You breathe in droplets from someone who is sick. ??? You come in contact with people who are sick. ??? You touch mucus or other fluid from a person who is sick. What are the signs or symptoms? Symptoms of this condition include: ??? A stuffy or runny nose. ??? A sore throat. ??? A cough. ??? Shortness of breath. ??? Trouble breathing. ??? Yellow or green fluid in the nose. Other symptoms may include: ??? A fever. ??? Sweating or chills. ??? Tiredness (fatigue). ??? Achy muscles. ??? A headache. How is this treated? This condition may be treated with: ??? Medicines that treat viruses. ??? Medicines that make it easy to breathe. ??? Medicines that are sprayed into the nose. ??? Acetaminophen or NSAIDs, such as ibuprofen, to treat fever. Follow these instructions at home: Managing pain and congestion ??? Take [id number] and prescription medicines only as told by your doctor. ??? If you have a sore throat, gargle with salt water. Do this 3?4 times a day or as needed. ? To make salt water, dissolve ??1 tsp (3?6 g) of salt in 1 cup (237 mL) of warm water. Make sure that all the salt dissolves. ??? Use nose drops made from salt water. This helps with stuffiness (congestion). It also helps soften the skin around your nose. ??? Take 2 tsp (10 mL) of honey at bedtime to lessen coughing at night. ? Do not give honey to children who are younger than 1 year old. ??? Drink enough fluid to keep your pee (urine) pale yellow. General instructions ??? Rest as much as possible. ??? Do not drink alcohol. ??? Do not smoke or use any products that contain nicotine or tobacco. If you need help quitting, ask your doctor. ??? Keep all follow-up visits. How is this pr (more content not included)... [facility] 08-04-2024 Note Patient Education Physical Medicine and Rehabilitation Heat Therapy Heat therapy can help ease sore, stiff, injured, and tight muscles and joints. Heat relaxes your muscles. This may help ease your pain and muscle spasms. What are the risks? If you have any of the following conditions, do not use heat therapy unless your doctor says it is okay. These conditions include: ??? New bruises. ??? Open wounds. ??? Any of these in the area being treated: ? Healing wounds. ? Infected skin. ? Scarred skin. ??? Problems with how blood moves through your body (circulation). ??? Loss of feeling (numbness) in the part of your body that is being treated. ??? Unusual swelling of the part of the body that is being treated. ??? Blood clots. ??? Diabetes. ??? Heart disease. ??? Cancer. ??? Not being able to communicate pain. This may include young children and people who have problems with their brain function (dementia). How to use heat therapy There are different kinds of heat therapy. These include: ??? Moist heat pack. ??? Hot water bottle. ??? Electric heating pad. ??? Heated gel pack. ??? Heated wrap. ??? Warm water bath. Your doctor will tell you how to use heat therapy. In general, you should: 1. Place a towel between your skin and the heat source. 2. Leave the heat on for 20?30 minutes. Your skin may turn pink. 3. Take off the heat if your skin turns bright red. This is very important. If you cannot feel pain, heat, or cold, you have a greater risk of getting burned. Your doctor may also tell you to take a warm water bath. To do this: 1. Put a non-slip pad in the bathtub to prevent a fall. 2. Fill the bathtub with warm water. 3. Check the water temperature. 4. Soak in the water for 15?20 minutes, or as told by your doctor. 5. Be careful when you stand up after the bath. You may feel dizzy. 6. Pat yourself dry after the bath. Do not rub your skin to dry it. General recommendations for heat therapy ??? Be careful not to burn your skin when using heat therapy. High heat or using heat for a long time can cause sanches. ??? Do not sleep while using heat therapy. Only use heat therapy while you are awake. ??? Check your skin during heat therapy. ??? Do not use heat therapy if you have a new injury, especially if you have swelling on the injured area. ??? Do not use heat therapy on areas of your skin that are already irritated, such as with a rash or sunburn. ??? Do not use heat therapy if your skin turns bright red. Contact a doctor if: ??? You have blisters, redness, swelling, or loss of feeling in the area where you use heat therapy. ??? You have new pain. ??? You have pain that gets worse. Summary ??? Heat therapy is the use of heat to help ease sore, stiff, injured, and tight muscles and joints. ??? There are different types of heat therapy. Your doctor will tell you which one to use. ??? Only use heat therapy while you are awake. ??? Watch your skin to make sure you do not get burned while using heat therapy. This information is not intended to replace advice given to you by your health care provider. Make sure you discuss any questions you have with your health care provider. Document Revised: 04/26/2021 Document Reviewed: 04/26/2021 [employer] Patient Education ? [address] [facility] 07-27-2024 History of Present illness Narrative Images from the original note were not included. patient: Zachary Hobbs : 1945 PCP: Jeff De La Vega DO SUBJECTIVE This is a 78 y.o. female that presents today with a chief complaint of painful elongated nails digits 1 through 10. They cause marked limitation in ambulation due to pain and pressure from shoe gear. Allergies: Allergies Allergen Reactions Seasonal Ic [Octacosanol] Tylenol With Codeine #3 [Acetaminophen-Codeine] Rash Hives - around waist Past Medical History: Past Medical History: Diagnosis Date Asthma (CMS/HCC) Cataract COPD (chronic obstructive pulmonary disease) (CMS/HCC) Emphysema lung (CMS/HCC) Hyperlipidemia (CMS/HCC) Hypertension (CMS/HCC) Lung cancer (CMS/HCC) Nocturnal hypoxia Osteopenia Thyroid disease (CMS/HCC) TIA (transient ischemic attack) Medications: Current Outpatient Medications: albuterol (2.5 MG/3ML) 0.083% nebulizer solution, Take 2.5 mg by nebulization every 6 (six) hours if needed, Disp: , Rfl: albuterol HFA 90 mcg/act inhaler, Inhale 2 puffs every 4 (four) hours if needed for wheezing., Disp: , Rfl: aspirin 81 MG EC tablet, Take 81 mg by mouth in the morning.,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 No status: NO. PATIENT RELEVANT IMPLANT DATA REVIEWED: Not Applicable RADIOLOGY DEPARTMENT: CT; Exam(s) Completed: Chest PERIPHERAL IV DATA: Not applicable SIGNED BY: RT Steve(R) May 23, 2023 1:04 PM documented in this encounter [facility] 05-23-2023 Note HNO ID: [id number] Author: Shira Navas RT(R) Service: ? Author Type: Technologist Type: Progress Notes Filed: 05/23/2023 1:04 PM Note Text: Radiology Service Progress Note PATIENT NAME: Zachary Hobbs DATE OF SERVICE: May 23, 2023 TIME: 1:04 PM PATIENT IDENTITY VERIFICATION COMPLETED USING TWO (2) IDENTIFIERS: Name and Date of confirmed by patient verbally. FALL SCREENING: Has the patient had 2 falls in the last year or 1 fall with injury or currently using an Ambulatory Assistive Device (Walker, Cane, Wheelchair, Crutches, etc.)? No PATIENT GENDER DATA: Female. status: : No status: NO. PATIENT RELEVANT IMPLANT DATA REVIEWED: Not Applicable RADIOLOGY DEPARTMENT: CT; Exam(s) Completed: Chest PERIPHERAL IV DATA: Not applicable SIGNED BY: RT Steve(Napoleon) May 23, 2023 1:04 PM [facility] 01-02-2023 History of Present illness Narrative Radiology Service Progress Note PATIENT NAME: Zachary Hobbs DATE OF SERVICE: January 02, 2023 TIME: 11:56 AM PATIENT IDENTITY VERIFICATION COMPLETED USING TWO (2) IDENTIFIERS: Name and Date of confirmed by patient verbally. FALL SCREENING: Has the patient had 2 falls in the last year or 1 fall with injury or currently using an Ambulatory Assistive Device (Walker, Cane, Wheelchair, Crutches, etc.)? No PATIENT GENDER DATA: Female. status: : No status: NO. PATIENT RELEVANT IMPLANT DATA REVIEWED: Yes RADIOLOGY DEPARTMENT: MR; Exam(s) Completed: Head: [place] [facility] [place] MRA PERIPHERAL IV DATA: Not applicable SIGNED BY: RT John(Napoleon) January 02, 2023 11:56 AM documented in this encounter [facility] 01-02-2023 Note HNO ID: [id number] Author: RT John(Napoleon) Service: Radiology Author Type: Technologist Type: Progress Notes Filed: 01/02/2023 11:57 AM Note Text: Radiology Service Progress Note PATIENT NAME: Zachary Hobbs DATE OF SERVICE: January 02, 2023 TIME: 11:56 AM PATIENT IDENTITY VERIFICATION COMPLETED USING TWO (2) IDENTIFIERS: Name and Date of confirmed by patient verbally. FALL SCREENING: Has the patient had 2 falls in the last year or 1 fall with injury or currently using an Ambulatory Assistive Device (Walker, Cane, Wheelchair, Crutches, etc.)? No PATIENT GENDER DATA: Female. status: : No status: NO. PATIENT RELEVANT IMPLANT DATA REVIEWED: Yes RADIOLOGY DEPARTMENT: MR; Exam(s) Completed: Head: [place] [facility] [place] MRA PERIPHERAL IV DATA: Not applicable SIGNED BY: RT John(R) January 02, 2023 11:56 AM [facility] 01-02-2023 History of Present illness Narrative [facility] Established Visit Zachary Hobbs [facility]#: [id number] Date of Service: 01/02/2023 Primary Care Provider: Yan Puckett DO, DO FOLLOW UP VISIT Zachary Hobbs is a 77 year old female, who presents for neurologic evaluation following small incidental LEFT cavernous ICA aneurysm. This is 24 month / 2 year PCP: Yan Puckett DO, DO Collaborating Physician: Dr. Asif Reason for visit: Unruptured aneurysm History of Event: Ms. Hobbs is a very nice 77F who presents today for continued evaluation of small LEFT cavernous extradural incidental aneurysm We will review 2 year follow up MRA brain wo. 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 States this began 2-3 days ago. No pattern or trigger -Denies headaches, vision difficulties, weakness. Denies neurologic s/s concerning for stroke BP-well controlled per patient. Average SBP of 112. 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 Medications: Current Outpatient Medications Medication Sig verapamil SR (CALAN SR, ISOPTIN SR) 120 mg CR tablet Take 120 mg by mouth daily at bedtime. doxazosin (CARDURA) 1 mg tablet Take 1 mg by mouth daily at bedtime. cholecalciferol, vitamin D3, (VITAMIN D3 ORAL) Take 50 mcg by mouth once daily. Zinc 50 mg tab Take 50 mg by mouth once daily. MULTIVITAMIN ORAL Take by mouth once daily. gabapentin (NEURONTIN) 100 mg capsule Take 1 capsule by mouth three times daily for 180 days. albuterol (PROVENTIL) 2.5 mg /3 mL (0.083 %) nebulizer solution Use 3 mL via nebulizer every 6 hours as needed. fluticasone (FLONASE) 50 mcg/actuation nasal spray Use 1 [place] in each nostril once daily. cyclobenzaprine (FLEXERIL) 10 mg tablet Take 1 tablet by mouth three times daily as needed. MYRBETRIQ 25 mg Tb24 Take 25 mg by mouth once daily. (Patient not taking: Reported on 12/20/2021 ) STIOLTO RESPIMAT 2.5-2.5 mcg/actuation Inhale 2 Puffs as instructed once daily. simethicone (GAS-X ORAL) Take 1 capsule by mouth four times daily as needed. (Patient not taking: Reported on 12/20/2021 ) budesonide (PULMICORT) 0.5 mg/2 mL nebulizer solution USE 1 VIAL IN NEBULIZER TWICE DAILY (Patient not taking: Reported on 12/02/2020) Omeprazole-Sodium Bicarbonate 20-1.1 mg-gram cap Take 1 capsule by mouth. In the morning Calcium Citrate-Vitamin D3 (CITRACAL+D) 315 mg- 250 unit tab Take 1 tablet by mouth once daily. (Patient not taking: Reported on 12/20/2021 ) Magnesium 250 mg tab Take 250 mg by mouth once daily. (Patient not taking: Reported on 12/20/2021 ) umeclidinium-vilanterol (ANORO ELLIPTA) 62.5-25 mcg/actuation inhaler (Patient not taking: Reported on 12/02/2020 ) fluticasone-sod chl-sod bicarb 50 mcg- 0.9 % ksps Use in the nose. (Patient not taking: Reported on 12/02/2020 ) CARBOXYMETHYLCELLULOSE SODIUM (REFRESH OPHTHALMIC) Use in eyes. pravastatin (PRAVACHOL) 80 mg tablet Take 80 mg by mouth once daily. atenolol (TENORMIN) 50 mg tablet Take 50 mg by mouth once daily. (Patient not taking: Reported on 12/20/2021 ) aspirin, enteric coated (ASPIRIN, ENTERIC COATED) 81 mg EC tablet Take 81 mg by mouth once daily. alendronate (FOSAMAX) 70 mg tablet Take 70 mg by mouth once each week. CYCLOSPORINE (RESTASIS OPHTHALMIC) Use in eyes. (Patient not taking: Reported on 12/20/2021 ) Lysine 1,000 mg tab Take 1 tablet by mouth once daily. (Patient not taking: Reported on 12/20/2021 ) melatonin 10 mg tab Take 10 mg by mouth at bedtime as needed. ALBUTEROL SULFATE (PROAIR HFA INHALATION) Inhale 2 Puffs as instructed as needed. No current facility-administered medications for this visit. Social History Tobacco Use Smoking status: Former Packs/day: 2.00 Years: 44.00 Pack years: 88.00 Types: Cigarettes Start date: 07/08/1963 Quit date: 2006 Years since quittin.4 Smokeless tobacco: Never Vaping Use Vaping Use: Never used Substance Use Topics Alcohol use: Yes Comment: occasional wine Drug use: No Review of Systems Eyes: Positive for blurred vision. Negative for double vision and vision loss. Gastrointestinal: Negative for nausea and vomiting. Neurological: Negative for headaches and weakness. See HPI. Patient Entered Questionnaires Health Status Change Since Last Visit 01/01/2023 11/18/2020 Change No change Minimally worse PROMIS/NeuroQoL Score Percentiles Physical Health 01/01/2023 11/18/2020 Physical Function Percentile 12 12 Sleep Percentile 34 21* Fatigue Percentile 24* 18* Pain Interference Percentile 18* 27* PROMIS SOCIAL ROLE SCORE 01/01/2023 11/18/2020 Social Role Satisfaction Percentile 31 24* Mental Health 01/01/2023 11/18/2020 NeuroQol Cognitive Function Percentile 34 31 General Self-Efficacy Percentile 38 14 PROMIS Global Health Scale 01/01/2023 12/20/2021 11/18/2020 Physical Health Percentile 22* 78 15 Mental Health Percentile 43 43 34 Percentiles provide an indication of how a patient's score ranks in relation to the [place] general population. > 31st percentile is within normal limits or better * < 31st percentile is at least SD worse than population, which may be clinically relevant < 16th percentile is at least 1 SD worse than population and warrants attention Depression Screening: PHQ-9 01/01/2023 11/18/2020 10/17/2016 Score 9 6 5 Self-Harm Response 0 0 Not at all PHQ-9 Scores: PHQ-9 Self-Harm (Item 9) Response: 0 - 9 No to Mild depression 0 - Not at all 10 - 14 Moderate depression 1 - Several Days > 15 Severe depression 2 - More than half the days 3 - Nearly every day Sleep Apnea Probability Score 01/01/2023 11/18/2020 Sleep Apnea Screen V2 Incomplete 40.11 (Sleep study not recommended) PHYSICAL EXAMINATION There were no vitals taken for this visit. General: Well-developed, well-nourished, in no acute distress. HEENT: Normocephalic, atraumatic. Sclerae anicteric. Lungs: Respirations even and unlabored, on room air. Extremities: No edema, cyanosis, or clubbing. Skin: No rash or ecchymoses. Neurological: Awake, alert, oriented to person, place, and time. Speech fluent, no dysarthria. Good attention and insight into illness. Cranial Nerves: PERRL, extraocular movements intact without nystagmus. Visual sierra grossly intact. Facial sensation and movements normal and symmetric. Tongue midline. Shoulder shrug symmetric. Motor: Normal bulk and tone. Strength 5/5 throughout. No pronator drift or tremor. Sensation: Grossly intact light touch. Coordination: Dzgysl-ud-wybs and tqas-of-jlrl without dysmetria bilaterally. Gait: Ambulates easily into the office without assistance. IMAGING MRA brain wo (01/01/23): Stable left cavernous ICA aneurysm LABS N/A IMPRESSION This is a very nice 77F who presents today to review 2 year follow up MRA brain with regards to <2mm LEFT cavernous incidental aneurysm. Imaging demonstrates stable aneurysm. PLAN - Imaging reviewed with the patient - 5 year follow up MRA brain wo (December,) - Discussed the importance of continued smoking cessation as well as good BP control -Goal blood pressure is less than 140/90. Notify your PCP with any elevated blood pressure readings. -Discussed s/s for which to present to the ED -The patient will return in 5 years or sooner if necessary All questions/concerns addressed and patient is agreeable to this plan. I spent a total of 15 minutes on the date of the service which included preparing to see the patient, [id number] patient care, completing clinical documentation, obtaining and/or reviewing separately obtained history, performing a medically appropriate examination, counseling and educating the patient/family/caregiver, communicating with other HCPs (not separately reported), independently interpreting results (not separately reported), and communicating results to the patient/family/caregiver. SIGNATURE Samantha Armstrong PA-C January 02, 2023 documented in this encounter [facility] 01-02-2023 Note HNO ID: [id number] Author: Samantha Armstrong PA-C Service: ? Author Type: Physician Table Games Dealer Type: Progress Notes Filed: 01/02/2023 1:34 PM Note Text: [facility] Established Visit Zachary Hobbs [facility]#: [id number] Date of Service: 01/02/2023 Primary Care Provider: Yan Puckett DO, DO FOLLOW UP VISIT Zachary Hobbs is a 77 year old female, who presents for neurologic evaluation following small incidental LEFT cavernous ICA aneurysm. This is 24 month / 2 year PCP: Yan Puckett DO, DO Collaborating Physician: Dr. Asif Reason for visit: Unruptured aneurysm History of Event: Ms. Hobbs is a very nice 77F who presents today for continued evaluation of small LEFT cavernous extradural incidental aneurysm We will review 2 year follow up MRA brain wo. 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 States this began 2-3 days ago. No pattern or trigger -Denies headaches, vision difficulties, weakness. Denies neurologic s/s concerning for stroke BP-well controlled per patient. Average SBP of 112. 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 Medications: Current Outpatient Medications Medication Sig verapamil SR (CALAN SR, ISOPTIN SR) 120 mg CR tablet Take 120 mg by mouth daily at bedtime. doxazosin (CARDURA) 1 mg tablet Take 1 mg by mouth daily at bedtime. cholecalciferol, vitamin D3, (VITAMIN D3 ORAL) Take 50 mcg by mouth once daily. Zinc 50 mg tab Take 50 mg by mouth once daily. MULTIVITAMIN ORAL Take by mouth once daily. gabapentin (NEURONTIN) 100 mg capsule Take 1 capsule by mouth three times daily for 180 days. albuterol (PROVENTIL) 2.5 mg /3 mL (0.083 %) nebulizer solution Use 3 mL via nebulizer every 6 hours as needed. fluticasone (FLONASE) 50 mcg/actuation nasal spray Use 1 [place] in each nostril once daily. cyclobenzaprine (FLEXERIL) 10 mg tablet Take 1 tablet by mouth three times daily as needed. MYRBETRIQ 25 mg Tb24 Take 25 mg by mouth once daily. (Patient not taking: Reported on 12/20/2021 ) STIOLTO RESPIMAT 2.5-2.5 mcg/actuation Inhale 2 Puffs as instructed once daily. simethicone (GAS-X ORAL) Take 1 capsule by mouth four times daily as needed. (Patient not taking: Reported on 12/20/2021 ) budesonide (PULMICORT) 0.5 mg/2 mL nebulizer solution USE 1 VIAL IN NEBULIZER TWICE DAILY (Patient not taking: Reported on 12/02/2020) Omeprazole-Sodium Bicarbonate 20-1.1 mg-gram cap Take 1 capsule by mouth. In the morning Calcium Citrate-Vitamin D3 (CITRACAL+D) 315 mg- 250 unit tab Take 1 tablet by mouth once daily. (Patient not taking: Reported on 12/20/2021 ) Magnesium 250 mg tab Take 250 mg by mouth once daily. (Patient not taking: Reported on 12/20/2021 ) umeclidinium-vilanterol (ANORO ELLIPTA) 62.5-25 mcg/actuation inhaler (Patient not taking: Reported on 12/02/2020 ) fluticasone-sod chl-sod bicarb 50 mcg- 0.9 % ksps Use in the nose. (Patient not taking: Reported on 12/02/2020 ) CARBOXYMETHYLCELLULOSE SODIUM (REFRESH OPHTHALMIC) Use in eyes. pravastatin (PRAVACHOL) 80 mg tablet Take 80 mg by mouth once daily. atenolol (TENORMIN) 50 mg tablet Take 50 mg by mouth once daily. (Patient not taking: Reported on 12/20/2021 ) aspirin, enteric coated (ASPIRIN, ENTERIC COATED) 81 mg EC tablet Take 81 mg by mouth once daily. alendronate (FOSAMAX) 70 mg tablet Take 70 mg by mouth once each week. CYCLOSPORINE (RESTASIS OPHTHALMIC) Use in eyes. (Patient not taking: Reported on 12/20/2021 ) Lysine 1,000 mg tab Take 1 tablet by mouth once daily. (Patient not taking: Reported on 12/20/2021 ) melatonin 10 mg tab Take 10 mg by mouth at bedtime as needed. ALBUTEROL SULFATE (PROAIR HFA INHALATION) Inhale 2 Puffs as instructed as needed. No current facility-administered medications for this visit. Social History Tobacco Use Smoking status: Former Packs/day: 2.00 Years: 44.00 Pack years: 88.00 Types: Cigarettes Start date: 07/08/1962 Quit date: 2006 Years since quittin.4 Smokeless tobacco: Never Vaping Use Vaping Use: Never used Substance Use Topics Alcoho (more content not included)... [facility] 12-20-2021 History of Present illness Narrative Radiology Service Progress Note PATIENT NAME: Zachary Hobbs DATE OF SERVICE: December 20, 2021 TIME: 1:03 PM PATIENT IDENTITY VERIFICATION COMPLETED USING TWO (2) IDENTIFIERS: Name and Date of confirmed by patient verbally and Name and Date of confirmed by identification band. FALL SCREENING: Has the patient had 2 falls in the last year or 1 fall with injury or currently using an Ambulatory Assistive Device (Walker, Cane, Wheelchair, Crutches, etc.)? No PATIENT GENDER DATA: Female. status: : No status: NO. 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 [facility]* Diagnosis Aneurysm (HCC)- Primary Aneurysm of unspecified site [facility]* Diagnosis Carotid aneurysm, 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 [facility] noteNo assessment information availableMer[facility] Work Phone: Evaluation note* Diagnosis Adenocarcinoma, lung, left (HCC)- Primary [facility]* Diagnosis Seborrheic keratosis- Primary [facility] Diagnosis Brain aneurysm Cerebral aneurysm, nonruptured Malignant neoplasm of unspecified part of unspecified bronchus or lung (HCC) [facility] Tongue lesion- Primary Unspecified condition of the tongue [facility] Tongue lesion- Primary Unspecified condition of the tongue [facility] Tongue lesion- Primary Unspecified condition of the tongue [facility] Diagnosis Onychomycosis- Primary Dermatophytosis of nail Pain in right toe(s) Pain in left toe(s) [facility] Diagnostic Procedure Only (Routine) - Closed Specialty Diagnoses / Procedures Referred By Contac t Referred To Contact CT IMAGING Diagnoses Malignant neoplasm of unspecified part of unspecified bronchus or lung (HCC) Procedures CT CHEST WO IVCON [place] [address] [place], [place] Ct Imaging Referral ID Status Reason Start Date Expiration Date V isits Requested Visits Authorized [id number] Closed Auto-Generate d Referral 12/06/2020 01/05/2022 1 1 [facility] Advance Directives No Advanced Directives Records FoundDocuments on File Type Date Recorded Patient Hot Box Checker Expl anation Advance Directive(s) 11/08/2016 7:31 AM Documents on File Type Date Recorded Patient Hot Box Checker Expl anation Advance Directive(s) 11/08/2016 7:31 AM Advance Directive Response Recorded Date/ Time Advance Directives No May 03, 2023 2:26pm Reason for Referral Specialty Diagnoses / Procedures Referred By Contac t Referred To Contact MR IMAGING Diagnoses Carotid aneurysm, left (HCC) Procedures MRA BRAIN WO IVCON MRA, HEAD W/O CONTRAST Tami Gutierrez, CONCEPTOR.DRUM STOCK CLERK [address] [place] [address] Mr Imaging Referral ID Status Reason Start Date Expiration Date Visits Requested Visits Authorized [id number] Pending Review Auto-Generat ed Referral 11/05/2022 10/25/2023 1 1 Referral ID Status Reason Start Date Expiration Date V isits Requested Visits Authorized [id number] Closed Auto-Generate d Referral 01/02/2023 08/13/2023 1 1 Specialty Diagnoses / Procedures Referred By Chester schultz Referred To Contact CT IMAGING Diagnoses Adenocarcinoma, lung, left (HCC) Procedures CT CHEST WO IVCON DIAGNOSTIC COMPUTED TOMOGRAPHY THORAX W/O CNTRST Raven Francis T, CONCEPTOR.DRUM STOCK CLERK [address] [place] [id number] Imaging [id number] Referral ID Status Reason Start Date Expiration Date Visits Requested Visits Authorized [id number] Pending Review Auto-Generat ed Referral 11/25/2023 06/25/2024 1 1 Specialty Diagnoses / Procedures Referred By Chester schultz Referred To Contact CT IMAGING Diagnoses Malignant neoplasm of unspecified part of unspecified bronchus or lung (HCC) Procedures CT CHEST WO IVCON DIAGNOSTIC COMPUTED TOMOGRAPHY THORAX W/[place] [address] [place] [address] Ct Imaging [id number] Referral ID Status Reason Start Date Expiration Date V isits Requested Visits Authorized [id number] Closed Auto-Generate d Referral 05/23/2023 07/07/2023 1 1 Summary Purpose Family History No Family History Records FoundNo Family History Records FoundNo Family History Records FoundNo Family History Records FoundNo Family History Records FoundNo Family History Records FoundNo Family History Records FoundNo Family History Records FoundNo Family History Records FoundNo Family History Records FoundNo Family History Records FoundNo Family History Records FoundNo Family History Records FoundNo Family History Records FoundNo Family History Records FoundNo Family History Records FoundNo Family History Records Found Additional Source Comments Source Comments (unrecognize d section and content) In the event this informatio n is protected by the Federal Confidentiality of Alcohol and Drug Abuse Patient Records regulations: The Federal rules restrict any use of the information to criminally investigate or prosecute any alcohol or drug abuse patient.[facility] the event this information is protected by the Federal Confidentiality of Alcohol and Drug Abuse Patient Records regulations: The Federal rules restrict any use of the information to criminally investigate or prosecute any alcohol or drug abuse patient.[facility] the event this information is protected by the Federal Confidentiality of Alcohol and Drug Abuse Patient Records regulations: The Federal rules restrict any use of the information to criminally investigate or prosecute any alcohol or drug abuse patient.[facility] the event this information is protected by the Federal Confidentiality of Alcohol and Drug Abuse Patient Records regulations: The Federal rules restrict any use of the information to criminally investigate or prosecute any alcohol or drug abuse patient.[facility] the event this information is protected by the Federal Confidentiality of Alcohol and Drug Abuse Patient Records regulations: The Federal rules restrict any use of the information to criminally investigate or prosecute any alcohol or drug abuse patient.[facility] the event this information is protected by the Federal Confidentiality of Alcohol and Drug Abuse Patient Records regulations: The Federal rules restrict any use of the information to criminally investigate or prosecute any alcohol or drug abuse patient.[facility] the event this information is protected by the Federal Confidentiality of Alcohol and Drug Abuse Patient Records regulations: The Federal rules restrict any use of the information to criminally investigate or prosecute any alcohol or drug abuse patient.[facility] the event this information is protected by the Federal Confidentiality of Alcohol and Drug Abuse Patient Records regulations: The Federal rules restrict any use of the information to criminally investigate or prosecute any alcohol or drug abuse patient.[facility] Care Teams (unrecognized sec tion and content) Biological Science Technician Relationship Specialty Start Date End Date Yan Puckett DO [address] [facility] [address] PCP - General Family Practice 07/08/15 Biological Science Technician Relationship Specialty Start Date End Date Yan Puckett, DO [address] [place] [address] PCP - General Family Practice 07/08/15 Biological Science Technician Relationship Specialty Start Date End Date Yan Puckett DO [address] [place] [address] PCP - General Family Medicine 07/08/15 Biological Science Technician Relationship Specialty Start Date End Date Yan Puckett DO [address] [place] [address] PCP - General Family Medicine 07/08/15 Biological Science Technician Relationship Specialty Start Date End Date Yan Puckett DO [address] [place] [address] PCP - General Family Medicine 07/08/15 Biological Science Technician Relationship Specialty Start Date End Date Yan Puckett DO [address] [facility] [place] [address] PCP - General Family Medicine 07/08/15 Team Status: Inactive Member Role Status Dates Anup Mckenna DO Attending Provider Active Biological Science Technician Relationship Specialty Start Date End Date Yan Puckett DO [address] [facility] [place] [address] PCP - General Family Medicine 07/08/15 Biological Science Technician Relationship Specialty Start Date End Date Jeff De La Vega DO [address] [place] [address] PCP - General 11/28/22 Biological Science Technician Relationship Specialty Start Date End Date Jeff De La Vega DO [address] [place] [address] PCP - General 11/28/22 Team Status: Active Member Role Status Dates Jeff De La Vega II, DO Primary Care Provider Active Team Status: Inactive Member Role Status Dates Jeff De La Vega II, DO Primary Care Provider Active Start: December 17, 2023 End: December 17, 2023 Kathi Castellon Jr, MD Attending Provider Active Start: December 17, 2023 End: December 17, 2023 Biological Science Technician Relationship Specialty Start Date End Date Yan Puckett DO [address] [place] [address] [place] [address] PCP - General Family Medicine 07/08/15 Biological Science Technician Relationship Specialty Start Date End Date Jeff De La Vega DO [address] [facility] [address] [place] [address] PCP - General 11/28/22 Biological Science Technician Relationship Specialty Start Date End Date Jeff De La Vega DO [address] [address] PCP - General 11/28/22 Biological Science Technician Relationship Specialty Start Date End Date Jeff De La Vega DO [address] [address] PCP - General 11/28/22 Biological Science Technician Relationship Specialty Start Date End Date Jeff De La Vega DO [address] [facility] [address] [place] [address] PCP - General 11/28/22 Biological Science Technician Relationship Specialty Start Date End Date Jeff De La Vega DO [address] [facility] [address] [place] [address] PCP - General 11/28/22 Biological Science Technician Relationship Specialty Start Date End Date Jeff De La Vega DO [address] [place] [address] PCP - General 11/28/22 Biological Science Technician Relationship Specialty Start Date End Date Jeff De La Vega DO [address] [place] [address] PCP - General 11/28/22 Reason for Visit (unrecogniz ed section and content) Reason Comments Radiology CT Specialty Diagnoses / Procedures Referred By Contac t Referred To Contact CT IMAGING Diagnoses Malignant neoplasm of unspecified part of unspecified bronchus or lung (HCC) Procedures CT CHEST WO IVCON [place] [address] [place] [address] Ct Imaging Referral ID Status Reason Start Date Expiration Date V isits Requested Visits Authorized [id number] Closed Auto-Generate d Referral 12/06/2020 01/05/2022 1 1 Reason Comments Established Patient Follow-Up Specialty Diagnoses / Procedures Referred By Contac t Referred To Contact MR IMAGING Diagnoses Carotid aneurysm, left (HCC) Procedures MRA BRAIN WO IVCON MRA, HEAD W/O CONTRAST Tami Gutierrez, CONCEPTOR.DRUM STOCK CLERK [address] [place] [address] Mr Imaging Referral ID Status Reason Start Date Expiration Date V isits Requested Visits Authorized [id number] Closed Auto-Generate d Referral 01/02/2023 08/13/2023 1 1 Reason Comments Established Patient Reason Comments Suspicious Skin Lesion Specialty Diagnoses / Procedures Referred By Contac t Referred To Contact Dermatology Diagnoses epithelial neoplasm Jeff De La Vega DO [address] [place] [address] Shavon Cottrell MD [address] [place] [address] Referral ID Status Reason Start Date Expiration Date Visits Re quested Visits Authorized [id number] Closed 06/26/2023 12/23/2023 1 1 Specialty Diagnoses / Procedures Referred By Contac t Referred To Contact CT IMAGING Diagnoses Malignant neoplasm of unspecified part of unspecified bronchus or lung (HCC) Procedures CT CHEST WO IVCON DIAGNOSTIC COMPUTED TOMOGRAPHY THORAX W/[place] [address] [place] [address] [place] [address] Referral ID Status Reason Start Date Expiration Date V isits Requested Visits Authorized [id number] Closed Auto-Generate d Referral 05/23/2023 07/07/2023 1 1 Reason Comments Tongue Lesion 2 month check Reason Comments tongue lesion 2 month recheck Reason Comments Tongue Lesion 2 month check Reason Comments Toenail Care Non DM nail care Goals (unrecognized section and content) Goals may be documented in a n alternate sectionGoals may be documented in an alternate section INFORMATION SOURCE (unrecogn ized section and content) DATE CREATED AUTHOR 01/02/2024 [facility] DATE CREATED AUTHOR AUTHOR'S ORGANIZ ATION 01/02/2024 [facility] DATE CREATED AUTHOR AUTHOR'S ORGANIZ ATION 03/01/2024 [facility] DATE CREATED AUTHOR AUTHOR'S ORGANIZ ATION 04/01/2024 [facility] DATE CREATED AUTHOR AUTHOR'S ORGANIZ ATION 05/28/2024 [facility] DATE CREATED AUTHOR AUTHOR'S ORGANIZ ATION 08/01/2024 [facility] DATE CREATED AUTHOR AUTHOR'S ORGANIZ ATION 08/08/2024 [facility] DATE CREATED AUTHOR AUTHOR'S ORGANIZ ATION 09/05/2024 [facility] DATE CREATED AUTHOR AUTHOR'S ORGANIZ ATION 09/06/2024 [facility] DATE CREATED AUTHOR AUTHOR'S ORGANIZ ATION 09/09/2024 [facility] DATE CREATED AUTHOR AUTHOR'S ORGANIZ ATION 09/15/2024 [facility] EPIC FOR RECORDS PERTAINING TO PATIENTS WHO ARE OR HAVE BEEN ENROLLED IN A CHEMICAL DEPENDENCY/SUBSTANCEABUSE PROGRAM, SOME INFORMATION MAY BE OMITTED. This clinical summary was aggregated from multiple sources. Caution should be exercised in using it in the provision of clinical care. This summary normalizes information from multiple sources, and as a consequence, information in this document may materially change the coding, format and clinical context of patient data. In addition, data may be omitted in some cases. CLINICAL DECISIONS SHOULD BE BASED ON THE PRIMARY CLINICAL RECORDS. [facility] [place] [facility]. provides no warranty or guarantee of the accuracy or completeness of information in this document.
[2024-10-01 10:04] LABS: Basophils Absolute Auto 0.1 10^3/uL (0.0-0.1); Basophils Percent Auto 1.6 % (0.2-2.0); Eosinophils Absolute Auto 0.3 10^3/uL (0.0-0.7); Eosinophils Percent Auto 5.1 % (0.9-7.0); Hematocrit 42.6 % (36.0-48.0); Hemoglobin 14.2 g/dL (12.0-16.0); Immature Granulocytes Abs Auto 0.02 10^3/uL (0.00-0.03); Immature Granulocytes Pct Auto 0.4 % (0.0-0.5); Lymphocytes Percent Auto 20.2 % (20.5-60.0); Mean Corpuscular HGB Conc 33.3 g/dL (29.9-35.2); Mean Corpuscular Hemoglobin 29.1 pg (26.7-34.0); Mean Corpuscular Volume 87.3 fL (81.0-99.0); Mean Platelet Volume 10.7 fL (9.5-13.5); Monocytes Absolute Auto 0.4 10^3/uL (0.3-0.8); Monocytes Percent Auto 7.9 % (1.7-12.0); Neutrophils Absolute Auto 3.2 10^3/uL (1.4-6.5); Neutrophils Percent Auto 64.8 % (43.0-75.0); Platelet Count 238 10^3/uL (150-450); Red Blood Count 4.88 10^6/uL (4.20-5.40); Red Cell Distribution Width 12.9 % (11.0-15.0); White Blood Count 4.9 10^3/uL (4.0-11.0)
--- NOTE | 2024-10-01 10:05 | PM.PRESUREVA ---
History of Present Illness History of Present Illness Chief complaint: Tongue and floor of mouth lesions Narrative: Patient presents for presurgical testing. Please see HPI from Dr. Hernandez dated September 14, 2024. Review of Systems ROS Narrative REVIEW OF SYSTEMS: Negative except as stated in HPI, ten or more systems reviewed. Constitutional: No fever, chills, weakness ENT: No sore throat or epistaxis Cardiovascular: No edema, chest pain, palpitations, or activity intolerance Respiratory: Chronic shortness of breath Musculoskeletal: No joint pain or swelling Gastrointestinal: No abdominal pain, diarrhea, or vomiting Genitourinary: No dysuria or hematuria Neurological: No numbness, tingling, weakness, or headache Psychiatric: No mood changes [facility] Medical History (Updated 10/01/24 @ 09:35 by Caryn Melendez NP) Osteoporosis ?M81.0 - Age-related osteoporosis without current pathological fracture (ICD-10) Prediabetes ?R73.03 - Prediabetes (ICD-10) Mitral valve prolapse ?I34.1 - Nonrheumatic mitral (valve) prolapse (ICD-10) PVCs (premature ventricular contractions) ?I49.3 - Ventricular premature depolarization (ICD-10) Emphysema lung ?J43.9 - Emphysema, unspecified (ICD-10) Hypertension ?I10 - Essential (primary) hypertension (ICD-10) Aortic valve stenosis ?I35.0 - Nonrheumatic aortic (valve) stenosis (ICD-10) Wears dentures ?Z97.2 - Presence of dental prosthetic device (complete) (partial) (ICD-10) Seasonal allergies ?J30.2 - Other seasonal allergic rhinitis (ICD-10) Osteopenia ?M85.80 - Other specified disorders of bone density and structure, unspecified site (ICD-10) Nocturnal hypoxia ?G47.34 - Idiopathic sleep related nonobstructive alveolar hypoventilation (ICD-10) Fatigue ?R53.83 - Other fatigue (ICD-10) Dysfunction of both eustachian tubes ?H69.93 - Unspecified Eustachian tube disorder, bilateral (ICD-10) Sialoadenitis ?K11.20 - Sialoadenitis, unspecified (ICD-10) Brain aneurysm (2017) ?I67.1 - Cerebral aneurysm, nonruptured (ICD-10) Lung cancer (2017) ?C34.90 - Malignant neoplasm of unspecified part of unspecified bronchus or lung (ICD-10) Neck pain ?M54.2 - Cervicalgia (ICD-10) Arthritis ?M19.90 - Unspecified osteoarthritis, unspecified site (ICD-10) Back pain ?M54.9 - Dorsalgia, unspecified (ICD-10) Anxiety ?F41.9 - Anxiety disorder, unspecified (ICD-10) Insomnia ?G47.00 - Insomnia, unspecified (ICD-10) Sleep apnea ?G47.30 - Sleep apnea, unspecified (ICD-10) COVID-19 ?U07.1 - COVID-19 (ICD-10) On home oxygen therapy ?Z99.81 - Dependence on supplemental oxygen (ICD-10) Chronic obstructive pulmonary disease ?J44.9 - Chronic obstructive pulmonary disease, unspecified (ICD-10) Asthma ?J45.909 - Unspecified asthma, uncomplicated (ICD-10) Balance disorder ?R26.89 - Other abnormalities of gait and mobility (ICD-10) Migraine ?G43.909 - Migraine, unspecified, not intractable, without status migrainosus (ICD-10) Transient ischemic attack (1985) ?G45.9 - Transient cerebral ischemic attack, unspecified (ICD-10) Chronic cough ?R05.3 - Chronic cough (ICD-10) Stress incontinence ?N39.3 - Stress incontinence (female) (male) (ICD-10) Diarrhea ?R19.7 - Diarrhea, unspecified (ICD-10) Constipation ?K59.00 - Constipation, unspecified (ICD-10) GERD (gastroesophageal reflux disease) ?K21.9 - Gastro-esophageal reflux disease without esophagitis (ICD-10) Dyspnea on exertion ?R06.09 - Other forms of dyspnea (ICD-10) High cholesterol ?E78.00 - Pure hypercholesterolemia, unspecified (ICD-10) Palpitations ?R00.2 - Palpitations (ICD-10) Dependence on nocturnal oxygen therapy ?Z99.81 - Dependence on supplemental oxygen (ICD-10) Hypothyroidism ?E03.9 - Hypothyroidism, unspecified (ICD-10) Tongue lesion ?K14.8 - Other diseases of tongue (ICD-10) Status post gamma knife treatment ?Z92.3 - Personal history of irradiation (ICD-10) Surgical History (Updated 09/29/24 @ 11:14 by Caryn Melendez NP) H/O oral surgery (12/17/23) ?Z98.890 - Other specified postprocedural states (ICD-10) History of bronchoscopy ?Z98.890 - Other specified postprocedural states (ICD-10) History of esophagogastroduodenoscopy (EGD) ?Z98.890 - Other specified postprocedural states (ICD-10) History of colonoscopy ?Z98.890 - Other specified postprocedural states (ICD-10) History of lung biopsy ?Z98.890 - Other specified postprocedural states (ICD-10) History of bilateral oophorectomy ?Z90.722 - Acquired absence of ovaries, bilateral (ICD-10) History of hysterectomy ?Z90.710 - Acquired absence of both cervix and uterus (ICD-10) S/P cataract extraction and insertion of intraocular lens ?Z98.49 - Cataract extraction status, unspecified eye (ICD-10) ?Z96.1 - Presence of intraocular lens (ICD-10) History of tonsillectomy and adenoidectomy ?Z90.89 - Acquired absence of other organs (ICD-10) Family History (Updated 12/06/23 @ 10:50 by Caryn Melendez NP) Other Family history of heart disease Family history of lung cancer Family history of stroke Social History (Updated 12/06/23 @ 10:33 by Caryn Melendez NP) Within the past year, how often did you have a drink containing alcohol: monthly or less Smoking status: Former smoker Non-prescribed substance use: denies use Highest level of school completed/degree received: Associate degree: occupational, technical, vocational program Meds Home Medications and Allergies Home Medications ?Medication ?Instructions ?Recorded ?Confirmed ?Type albuterol sulfate 2.5 mg/3 mL 2.5 mg inhalation Q6H PRN 12/06/23 10/01/24 History (0.083 %) solution for nebulization shortness of breath or wheezing albuterol sulfate 90 mcg/actuation 2 inh inhalation Q6H PRN shortness 12/06/23 10/01/24 History aerosol inhaler of breath or wheezing aspirin 81 mg tablet,delayed 81 mg PO DAILY 12/06/23 10/01/24 History release (Adult Aspirin Regimen) carboxymethylcellulose sodium 1 % 1 drp ophthalmic (eye) DAILY 12/06/23 10/01/24 History eye liquid gel drops (Refresh Liquigel) fluticasone fur. 100 mcg-umeclid 1 inh inhalation Q24H 12/06/23 10/01/24 History 62.5 mcg-vilant 25 mcg inhalat.powder (Trelegy Ellipta) gabapentin 100 mg capsule 100 mg PO Q8H 12/06/23 10/01/24 History levothyroxine 50 mcg tablet 50 mcg PO DAILY 12/06/23 10/01/24 History lorazepam 0.5 mg tablet 0.5 mg PO QPM 12/06/23 10/01/24 History magnesium oxide 400 mg PO DAILY 12/06/23 10/01/24 History melatonin 10 mg capsule 10 mg PO DAILY 12/06/23 10/01/24 History montelukast 10 mg tablet 10 mg PO DAILY 12/06/23 10/01/24 History pravastatin 80 mg tablet 80 mg PO DAILY 12/06/23 10/01/24 History verapamil 40 mg tablet 40 mg PO BID 12/06/23 10/01/24 History bupropion HCl 300 mg 24 hr tablet, 300 mg PO DAILY 10/01/24 10/01/24 History extended release calcium 600 mg (as 1 tab PO DAILY 10/01/24 10/01/24 History carbonate)-vitamin D3 5 mcg (200 unit) tablet (Calcium 600 + D(3)) docusate sodium 100 mg capsule 100 mg PO DAILY 10/01/24 10/01/24 History (Colace) multivitamin (Daily Multi-Vitamin 1 tab PO DAILY 10/01/24 10/01/24 History tablet) omeprazole 20 mg capsule,delayed 40 mg PO DAILY 10/01/24 10/01/24 History release zinc 50 mg capsule 50 mg PO DAILY 10/01/24 10/01/24 History Allergies Allergy/AdvReac Type Severity Reaction Status Date / Time codeine Allergy Rash Verified 10/01/24 09:19 Exam Narrative Exam Narrative: Constitutional: Awake, alert, comfortable, well-appearing, nontoxic, interactive, vital signs as charted Head: Normocephalic, atraumatic Neck: Supple, normal appearance, normal range of motion, no meningeal signs, no lymphadenopathy Respiratory: No respiratory distress, breath sounds clear Cardiovascular: Regular rate and rhythm, strong and regular heart tones Musculoskeletal: Normal gait, no swelling or edema Skin: No rashes or induration, no lesions, only visible skin inspected Neuro: No neurological deficits, normal sensation Psychiatric: Oriented ?3, normal affect Assessment and Plan Assessment and Plan (1) Tongue lesion: Plan Removal left tongue and floor of mouth lesion with early childhood teacher assistant scheduled with Dr. Hernandez October 15, 2024.
[2024-10-01 10:16] LABS: INR 1.05; Prothrombin Time 11.1 sec (9.0-11.6)
[2024-10-01 12:22] LABS: Anion Gap 13.1; BUN Creatinine Ratio 14.1; Calcium 9.5 mg/dL (8.5-10.1); Chloride 105 mmol/L (98-107); Estimated GFR (African America >60 (>=60 mL/min/1.73m^2); Estimated GFR (Non-African Ame 54 (>=60 mL/min/1.73m^2); Glucose 102 mg/dL (74-106); Potassium 4.1 mmol/L (3.5-5.1); Sodium 142 mmol/L (136-145)
== END 2024-10-01 08:56 | disposition home or self-care (01) ==
LOC: PST 08:56
PROVIDERS: PCP Family Medicine Adult Medicine; Visit Provider Otolaryngology
DX: Z01.810 Encounter for preprocedural cardiovascular examination (principal); Z01.812 Encounter for preprocedural laboratory examination; Z01.818 Encounter for other preprocedural examination; C02.3 Malignant neoplasm of anterior two-thirds of tongue, part unspecified
CPT/HCPCS: 36415; 71046; 80048; 85025; 85610; 85730; 93005; G0463

== ENCOUNTER 2024-10-15 10:02 | Day surgery (SDC) | payer MEDICARE, SELFPAY ==
[2024-10-01 09:45] VITALS: BP 147/66; PULSE 88; TEMP 36.4; O2SAT 94; BMI 25.7
[2024-10-15] VITALS (9 sets, daily range): BP systolic 106–165; BP diastolic 70–84; PULSE 84–100; TEMP 36.1–36.7; O2SAT 93–96; BMI 25.7
--- NOTE | 2024-10-15 | OP_ITS ---
OPERATION DATE: 10/15/2024 PRIMARY CARE PHYSICIAN: Michele De La Vega D.O. SURGEON: Digna Hernandez M.D. 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 PROCEDURE: Removal of left lateral tongue lesions with primary closure x2 and removal of left floor of mouth lesion with primary closure. ANESTHESIA: General endotracheal. COMPLICATIONS: None. FINDINGS: A 3 x 5 mm patch of leukoplakia left posterolateral tongue, a 1 x 2 mm patch of leukoplakia left anterolateral tongue, a 2 x 4 mm patch of leukoplakia left floor of mouth. INDICATIONS: This 79-year-old woman underwent removal of a very superficial squamous cell carcinoma of the left lateral tongue last December. She had negative margins. She has been returning for monthly follow ups and was found to have the above lesions at her most recent surveillance exam. PROCEDURE: Patient identified in the holding area and taken back to the OR where she was placed in a supine position. After induction of general endotracheal anesthesia, the table was turned. A mouth gag was used to hold the mouth open and the tongue was grasped. The tongue and floor of mouth were injected with lidocaine 1% with 1:100,000 epinephrine for hemostasis and postoperative pain control, and the tongue and floor of mouth were prepped with Betadine. After waiting adequate time for hemostasis, attention was turned to the left posterolateral patch of leukoplakia. Using a Clinton tip Bovie and under a cut setting, mucosal incisions were made around the lesion, with care taken to ensure that there were negative margins. Then, using Bovie coagulation, the incision was undermined and the lesion removed and sent for pathologic analysis. The incision was then closed with interrupted 4-0 Vicryl vertical mattress sutures. Attention was then turned to the left floor of mouth lesion and the same procedure performed, and then in turn to the anterolateral patch of leukoplakia and the same procedure performed. The patient tolerated the procedure well, and she was awakened and taken to the recovery room in good condition. MAURO
[2024-10-15] MEDS: LACTATED RINGER'S SOLUTION 1,000 ML 50 ML IV (10:38)
[2024-10-15] MEDS: LIDOCAINE HCL 1%-EPINEPHRINE 1:100,000 20 ML MDV 3 ML INJ (12:27)
--- NOTE | 2024-10-15 13:21 | PC.NURSE ---
No bleeding from mouth noted
--- NOTE | 2024-10-15 13:26 | PC.NURSE ---
No active oral drainage noted
--- NOTE | 2024-10-15 13:30 | PC.NURSE ---
No active oral drainage noted
[2024-10-15] MEDS: ACETAMINOPHEN 325 MG TABLET 650 MG PO (14:07)
--- NOTE | 2024-10-15 14:16 | PC.NURSE ---
Medicated with Tylenol as ordered for pain
--- NOTE | 2024-10-15 14:36 | PC.NURSE ---
Asking for Tramadol for pain; call out to Dr. Hernandez
--- NOTE | 2024-10-15 14:47 | PC.NURSE ---
States she wants to go home and will take Tramadol at home
--- NOTE | 2024-10-15 14:48 | PC.NURSE ---
Up to bathroom and voids without difficulty
== END 2024-10-15 14:51 | disposition home or self-care (01) ==
PROVIDERS: PCP Family Medicine Adult Medicine; Visit Provider Otolaryngology
PROC: (CPT 41112; principal; 2024-10-15 11:35)
DX: K14.3 Hypertrophy of tongue papillae (principal); K13.21 Leukoplakia of oral mucosa, including tongue; Z79.01 Long term (current) use of anticoagulants; J44.9 Chronic obstructive pulmonary disease, unspecified; R23.4 Changes in skin texture; Z85.810 Personal history of malignant neoplasm of tongue; Z90.710 Acquired absence of both cervix and uterus; Z87.891 Personal history of nicotine dependence; E78.5 Hyperlipidemia, unspecified; I10 Essential (primary) hypertension; I35.0 Nonrheumatic aortic (valve) stenosis; E03.9 Hypothyroidism, unspecified
CPT/HCPCS: 41112; 41113; 41116; 36415; 88305; J1100; J2250; J2405; J2704; J3010